=== PATIENT | female | born 1935 | race Caucasian/White ===

== ENCOUNTER 2016-12-24 07:29 | Inpatient (IN) | payer MEDICARE, MEDICAID ==
[~2016-12-24] VITALS: Ht 167.6 cm; Wt 79.6 kg
[2016-12-24] VITALS (18 sets, daily range): BP systolic 118–170; BP diastolic 9–76
[~2016-12-24 07:29] MED LIST: ACETAMINOPHEN325 M2 PO; ACTOS 15MG TABL15 MG PO; AMLODIPINE5 M1 PO; AMOXIL500 MG PO; ASCORBIC ACID500 M2 PO; ASPIR 8181 MG PO; AUGMENTIN 875-1 EACH PO; AZITHROMYCIN250 MG PO; CARDIZEM CD 12120 MG PO; CEFDINIR 300MG300 MG PO; CLOPIDOGREL75 M1 PO; DITROPAN XL10 M1 PO; FERROUS SULFAT200 M1 PO; FERROUS SULFAT325 M2 PO; FLUTICASONE 50M16 GM; FSBS FS; GENTAMICIN O5 ML/BOT OP; GENTAMICIN OP; GLIPIZIDE10 MG PO; HUMALOG100 U/ML SC; HYDROCORTI30 GM/TUB3; HYDROCORTI30 GM/TUB3 TP; HYDROXYZINE 25M25 MG PO; HYPOTEARS 15 ML15 M1 OP; IMODIUM 2MG. CAP2 MG PO; LASIX20 MG PO; LEVAQUIN 750 M750 MG PO; LIPITOR40 MG PO; LISINOPRIL2.5 M1 PO; LISINOPRIL20 MG PO; LORATADINE 10MG10 M1 PO; MACRODANTIN100 MG PO; MAXZIDE 25 MG-31 TAB PO; MAXZIDE 50 MG-71 TAB PO; METFORMIN500 MG PO; MULTIVITAMIN1 SGL PO; MYLANTA PO; NITROGLYCERIN0.4 MG SL; NORVASC 5MG. TAB5 MG PO; OMEPRAZOLE20 MG PO; OXYBUTYNIN CHLOR5 MG PO; OXYBUTYNIN5 MG PO; PANTOPRAZOLE SO40 MG PO; PLAVIX 75MG TAB75 MG PO; PLAVIX75 MG PO; PRENATAL PLUS1 TA1 PO; PRENATAL1 TA1 PO; PROMETHAZINE HC25 M1 PO; PROMETHAZINE25 M1 PO; ROBITUSSIN COU118 ML PO; ROBITUSSIN DM S10 ML PO; TRICOR48 MG PO; TRIPLE ANTIBIOT TP; TYLENOL325 MG PO; VISTARIL25 M1 PO; VISTARIL25 MG PO; VITAMIN C500 M1 PO; VITAMIN D50000 IU PO; ZESTRIL 2.5MG2.5 MG PO; ZOCOR20 MG PO; ZOLOFT 50MG TAB50 MG PO; [UNRECOGNIZED DRUG - OTHER] PO
[2016-12-24] MEDS ORDERED: NOVOLOG MI100 UNITS/ SC (07:42)
--- OUTSIDE RECORDS SUMMARY | 2016-12-24 07:49 | External Medical Summary Rpt ---
Author Author , LINDSAY MONTOYA Address Unknown Phone [email or web address] Care Team Providers Care Coil Spring Assembler Name Role Phone PHILLIPS LUZ, PHILLIPS Unavailable Unavailable LUZ VIKY FRA, VIKY Unavailable Unavailable FRA BEINEKE, BEINEKE Unavailable Unavailable CHE, CHE Unavailable Unavailable CHE KRYSTAL, Unavailable Unavailable CHE KRYSTAL CHE KRYSTAL, Unavailable Unavailable CHE KRYSTAL REYNOLDS ALL, REYNOLDS ALL Unavailable Unavailable BRAUDIS, BRAUDIS Unavailable Unavailable BRAUDIS, BRAUDIS Unavailable Unavailable BRAUDIS JAM, BRAUDIS Unavailable Unavailable JAM BRAUDIS JAM, BRAUDIS Unavailable Unavailable JAM [facility] Unavailable Unavailable SERVICE, [facility] Unavailable Unavailable SERVICE, [facility]available Unavailable [facility], [facility] Unavailable Unavailable [facility], [facility] GIOVANNA, GIOVANNA Unavailable Unavailable GIOVANNA MARTIN, Unavailable Unavailable GIOVANNA MARTIN GIOVANNA MARTIN, Unavailable Unavailable GIOVANNA MARTIN [facility] Unavailable [facility]available [facility], Unavailable [facility]available [facility] PHI, Unavailable Unavailable NEVIN PHI [facility] Un[facility] Un[facility], [facility] Unavailable Unavailable [facility]ST[facility], [facility] Unavailable Unavailable [facility], [facility] Unavailable Unavailable SERVBLUEGRAS, [facility]ATED Unavailable Unavailable TRANSPORTATION SER, [facility] YANET, YANET Unavailable Unavailable YANET KIM, YANET Unavailable Unavailable KIM GIVEN CUR, GIVEN CUR Unavailable Unavailable GIVEN CUR, GIVEN CUR Unavailable Unavailable [facility] Unavailable Unavailable INC, [facility] Unavailable Un[facility]PITAL P, [facility], Unavailable Unavailable [facility] OTIS BERG Unavailable Unavailable ALEC VIRK, ALEC VIRK Unavailable Unavailable ILDA, ILDA Unavailable Unavailable [facility] Unavailable Unavailable [facility], [facility] Un[facility], [facility], [facility] Unavailable Unavailable 11, [facility] 11 [facility] Unavailable Unavailable ACTION, [facility] MCKEMIE JR YO, Unavailable Unavailable [facility]EM[facility] Y[facility] Unavailable Unavailable [facility], [facility]available Unavailable [facility], Unavailable Unavailable PLL[facility], [facility] LAURA, MALACHI A, Unavailable Unavailable LAURA, MALACHI A WANDER TOD, WANDER TOD Unavailable Unavailable SCIFRES ANG, SCIFRES Unavailable Unavailable ANG SCIFRES ANG, SCIFRES Unavailable Unavailable ANG SHAENIDY ANN, SHASHY Unavailable Unavailable ANN MOISE, JOSE MARIA Unavailable Unavailable CANDELARIA, IVY N, Unavailable Unavailable CANDELARIA, IVY N [facility] Unavailable Unavailable [facility], [facility] Unavailable Unavailable [facility], [facility] SOTINGEANU, Unavailable Unavailable SOTINGEANU ANDRE, Unavailable Unavailable ANDRE Clinton Patterson MD, Unavailable Unavailable Clinton Patterson MD [facility] Unavailable Unavailable HOSPITALS, [facility], Unavailable Unavailable [facility] MCCORD BHAKTI, MCCORD BHAKTI Unavailable Unavailable WEHRMAN III YO, Unavailable Unavailable WEHRMAN III YO Purpose Continuity of Care Document - 12-26-2008 through 2016 Problems Code Diagnosis DOS Provider Status E11.65 Type 2 10-31-2016 diabetes mellitus with hyperglycem ia E78.5 Hyperlipide 10-31-2016 tracy, unspecified I12.9 Hypertensiv 10-31-2016 e chronic kidney disease with stage 1 through stage 4 chronic kidney disease, or unspecified chronic kidney disease N18.9 Chronic 10-31-2016 kidney disease, unspecified R73.9 Hyperglycem 10-31-2016 ia, unspecified Z86.73 Personal 10-31-2016 history of transient ischemic attack (TIA), and cerebral infarction without residual deficits E1165 TYPE 2 10-24-2016 [facility] [place]YCEM [place] E785 HYPERLIPIDE 10-24-2016 [facility] UNSPECIFIED HOSPITALS I10 ESSENTIAL 10-24-2016 [facility] HYPERT[facility]IN[facility] PSC N I129 HYPERTENSIV 10-24-2016 [facility] E CKD HEALTHCARE W/STAGE 1-4 HOSPITALS CKD OR UNS CKD N189 CHRONIC 10-24-2016 [facility] DISEASE HOSPITALS UNSPECIFIED Z8673 PERSONAL HX 10-24-2016 [facility] & [facility] CEREB HOSPITALS INFARCT NO RESID DEFICIT E118 TYPE 2 09-24-2016 [facility]ES [facility], MELLITUS PLLC W/UNS COMPLICATIO NS 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-24-2016 [facility] 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[facility], 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 N289 DISORDER OF 09-24-2016 [facility] KIDNEY AND [facility], URETER PLLC UNSPECIFIED R4182 ALTERED 09-24-2016 [facility] MENTAL [facility], STATUS PLLC UNSPECIFIED R5383 OTHER 09-24-2016 [facility] I4891 UNSPECIFIED 09-22-2016 [facility] ATRIAL HEART FIBRILLATIO N R748 ABNORMAL 09-22-2016 [facility] LEVELS OF HEART OTHER SERUM ENZYMES I214 NON-ST 09-21-2016 [facility] ELEVATION PHYSICIANS MYOCARDIAL GROUP INFARCTION [id number] ASHD [place] 09-21-2016 [facility] COR ART PHYSICIANS W/UNSTABLE GROUP ANGINA PECTORIS I495 SICK SINUS 09-21-2016 [facility] SYNDROME PHYSICIANS GROUP N183 CHRONIC 09-21-2016 [facility] KIDNEY PHYSICIANS DISEASE GROUP STAGE 3 MODERATE [id number] HEMIPLEGIA 09-20-2016 [facility] FLW PHYSICIANS CEREBRAL GROUP INFARCT AFFCT UNS SIDE 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 [id number] ENCOUNTER 09-20-2016 [facility] FOR OTHER PHYSICIANS PREPROCEDUR GROUP AL EXAMINATION E1122 TYPE 2 09-19-2016 [facility] MELLITUS INC W/DIAB CHRON KIDNEY DZ 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 E44510 HEMIPLEGIA 09-19-2016 [facility] FLW [facility] CEREBRAL INC INFARCT AFF RT DOM SIDE N390 URINARY 09-19-2016 [facility] TRACT [facility] INFECTION INC SITE NOT SPECIFIED R0602 SHORTNESS 09-19-2016 [facility] OF BREATH PHYSICIANS, PLLC R079 CHEST PAIN 09-19-2016 [facility] UNSPECIFIED [facility]BULANCE SERVICE R7989 OTHER SPEC 09-19-2016 [facility] BLOOD CHEMISTRY E119 TYPE 2 09-15-2016 [facility] MELLITUS MEDICAL WITHOUT EQUIPME COMPLICATIO NS B351 TINEA 09-07-2016 MARJORIEUDIS UNGUIUM E1151 TYPE 2 DM 09-07-2016 BRAUDIS W/DIAB 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 [id number] PAIN IN 09-07-2016 [facility] RIGHT TOES H67021 PAIN IN 09-07-2016 B[facility]IS LEFT TOES R600 LOCALIZED 09-07-2016 JOHNNYS EDEMA H1789 OTHER 07-11-2016 [facility] OPACITIES R69 ILLNESS 07-11-2016 FEDERATED UNSPECIFIED TRANSPORTAT ION SER [id number] FOREIGN 05-27-2016 [facility] IN EYE [place] UNS INSTITUTE EYE INITIAL ENCOUNTER Z961 PRESENCE OF 05-27-2016 [facility] LENS [id number] PAIN IN 01-22-2016 EXPRESS LEFT THIGH MOBILE DIAGNOSTIC SE R7611 NONSPECIFIC 12-30-2015 EXPRESS RXN MOBILE TUBERCULIN DIAGNOSTIC SKIN TEST SE W/O ACT TB N250 RENAL 10-05-2015 [facility] OSTEODYSTRO SERV PHY FOUNDATION Z794 SENIOR LIVING 10-05-2015 [facility] CURRENT USE SERV OF INSULIN FOUNDATION H2513 AGE-RELATED 07-03-2015 SCIFRES ANG NUCLEAR CATARACT BILATERAL L07715 PUPILLARY 04-28-2015 [facility]AL[facility] LEFT EYE INC 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 04-28-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 FORMS OF 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 LEFT EYE H269 UNSPECIFIED 04-28-2015 [facility] CATARACT [facility] INC H5703 MIOSIS 04-28-2015 CHE KRYSTAL N3941 URGE 04-21-2015 [facility] P 2859 UNSPECIFIED 02-25-2015 [facility] ANEMIA [facility] INC 48573 02-25-2015 [facility] TRANSPORTAT ION SER 2410 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 [facility] GOITER [facility] 04240 DIAB W/O 02-17-2015 [facility] COMP TYPE [facility] II/UNS NOT INC STATED UNCNTRL 2558 OTHER 02-17-2015 [place] SPECIFIED MEDICAL DISORDERS IMAGING ASS OF ADRENAL GLANDS 19574 UNSPEC 02-17-2015 [facility] VENTRAL [facility] NIMO W/O IMAGING ASS MENTION OBST/GANGRE N 5932 ACQUIRED 02-17-2015 [place] CYST OF MEDICAL KIDNEY IMAGING ASS 98132 NONSPEC 12-25-2014 EXPRESS REACT MOBILE TUBERCULIN DIAGNOSTIC [place] W/[place] [address] OTHER ACUTE 09-19-2014 [facility] PAIN PHYSICIANS GROUP 7062 SEBACEOUS 09-19-2014 [facility] CYST PHYSICIANS GROUP 7820 DISTURBANCE 09-19-2014 [facility] OF SKIN PHYSICIANS SENSATION GROUP V154 PERS HX 09-17-2014 [facility]IC [facility] AL TRAUMA PRS [facility]ZAR[facility] 4739 UNSPECIFIED 07-04-2014 [facility] 7813 LACK OF 07-04-2014 [place] [facility] N IMAGING ASS 16715 DIAB W/O 07-03-2014 [facility]ENTION [facility] COMP TYPE HOSPITAL P II/UNS TYPE UNCNTRL 4019 UNSPECIFIED 07-03-2014 [facility] P N 87980 MUSCLE 07-03-2014 [place] [facility]AK[facility] P D) 04155 OTHER 07-03-2014 [place] MALAI AND [facility] P 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 04530 DIAB 06-28-2013 BRAFRANNY MEADE W/PERIPH CIRC D/O TYPE II/UNS NOT UNCNTRL 7011 ACQUIRED 06-28-2013 ALEXIA MEADE KERATODERMA 7295 PAIN IN 06-28-2013 ALEXIA MEADE SOFT TISSUES OF LIMB 7823 EDEMA 06-28-2013 ALEXIA MEADE 5853 CHRONIC 04-15-2013 [place] [facility] DISEASE INC STAGE III (MODERATE) 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 7533 OTHER 04-15-2013 GIOVANNA SPECIFIED MARTIN CONGENITAL ANOMALIES OF KIDNEY 23160 DEHYDRATION 01-03-2013 SIGRID MONTENEGRO YO 2767 HYPERPOTASS 01-03-2013 SIGRID MONTENEGRO EMIA OY 3319 UNSPECIFIED 01-02-2013 GIOVANNA CEREBRAL MARTIN DEGENERATIO N 514 PULMONARY 12-04-2012 EXPRESS CONGESTION [place] [address] SHORTNESS 12-04-2012 [place] [address] UNSPECIFIED 04-30-2012 GIVEN CUR CEREBRAL ARTERY OCCLUSION W/INFARCT 06565 OCCL&STENOS 04-05-2012 GIOVANNA MX&BILAT MARTIN PRECERBRL ART W/O INFARCT 45501 UNSPEC 04-04-2012 [place] CERBRL ART MEDICAL OCCLUSION IMAGING ASS W/O MENTION INFARCT 4370 CEREBRAL 04-04-2012 [place] ATHEROSCLER [facility]ICAL OSIS [facility] 4371 OTH 04-04-2012 [place] GENERALIZED [facility]ICAL ISCHEMIC IMAGING ASS CEREBROVASC ULAR DISEASE V5869 LONG-TERM 01-18-2012 COMBINED (CURRENT) PHYSICIANS USE OF [place] OTHER MEDICATIONS 14295 OSTEOARTHRO 12-16-2011 [facility] SIS UNSPEC SERV WHETHER FOUNDATIO GEN/LOC LOWER LEG 87178 PAIN IN 12-16-2011 [facility] JOINT, SERV LOWER LEG FOUNDATIO 65645 EXOSTOSIS 12-16-2011 [facility] OF SERV UNSPECIFIED FOUNDATIO SITE 79869 MEMORY LOSS 08-21-2009 [facility] V1254 PERSONAL HX 08-21-2009 [facility] W/O RESIDUAL DEFICITS 4409 GENERALIZED 07-17-2009 [facility] UNSPECIFIED ATHEROSCLER OSIS 7213 LUMBOSACRAL 07-17-2009 [facility] 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 7242 LUMBAGO 07-17-2009 [facility] 94090 ALTERED 07-17-2009 [facility] STATUS [facility] 2724 OTHER AND 12-26-2008 [facility] UNSPECIFIED SERV [facility]OUNDATIO HYPERLIPIDE TRACY 276.7 Hyperkalemi [facility] 586 Uremia [facility] 780.93 Memory [facility] E11.9 TYPE 2 DIABETES MELLITUS WITHOUT COMPLICATIO NS I25.10 ATHSCL HEART DISEASE OF [place] CORONARY ARTERY W/O ANG PCTRS I48.91 UNSPECIFIED ATRIAL FIBRILLATIO N N28.9 DISORDER OF KIDNEY AND URETER, UNSPECIFIED R06.00 DYSPNEA, UNSPECIFIED R07.9 CHEST PAIN, UNSPECIFIED R41.82 ALTERED MENTAL STATUS, UNSPECIFIED R53.1 WEAKNESS Allergies, Adverse Reactions, Alerts Type Drug Allergy Food Allergy Adverse Reaction to Substance Substance Reaction Severity Bananas UNKNOWN Unknown BANANAS (FOOD) Unknown Unknown Clinical Alert Notifications Alert Diabetes: no influenza vaccine in the last 365 days Diabetes: no lipid panel in the last 365 days Diabetes: no urine protein screening in the last 365 days Member has >/= 3 hosp admit & >/= 1 ED visit in 365 days Medications Na ND Rx Da Fi Fi Am Da Di Ph RX Ph St me C No te ll ll ou ys ag ar # ys at rm s nt no ma ic us Or Da si cy ia de te s n re d FE 00 06 07 30 30 00 ME Ac RR 53 -0 -0 .0 00 D ti OU 61 2- 7- 00 14 CA ve S 00 20 20 30 RE ANAYA 90 17 17 75 LF 1 43 PH AT AR E MA 32 CY 5 MG TA BL ET 00 06 07 30 30 00 ME Ac PI 90 -0 -0 .0 00 D ti RI 46 2- 7- 00 14 CA ve N 28 20 20 30 RE 81 88 17 17 75 9 42 PH MG AR MA CH CY EW AB LE TA BL ET TA 00 05 06 30 30 00 ME Ac B- 90 -1 -2 .0 00 D ti A- 40 9- 3- 00 14 CA ve 53 20 20 21 RE TE 08 17 17 75 0 36 PH TA AR BL MA ET CY 00 05 06 30 30 00 ME Ac TA 90 -2 -2 .0 00 D ti AZ 40 4- 3- 00 14 CA ve N 52 20 20 23 RE C 38 17 17 89 50 0 19 PH 0 AR MG MA CY TA BL ET 00 05 06 30 30 00 ME Ac PI 90 -0 -0 .0 00 D ti RI 46 4- 9- 00 14 CA ve N 28 20 20 13 RE 81 88 17 17 95 9 18 PH MG AR MA CH CY EW AB LE TA BL ET FE 00 05 06 30 30 00 ME Ac RR 53 -0 -0 .0 00 D ti OU 61 4- 9- 00 14 CA ve S 00 20 20 13 RE ANAYA 90 17 17 95 LF 1 19 PH AT AR E MA 32 CY 5 MG TA BL ET 00 04 06 30 30 00 ME Ac TA 90 -2 -0 .0 00 D ti AZ 40 7- 2- 00 14 CA ve N 52 20 20 01 RE C 38 17 17 44 50 0 92 PH 0 AR MG MA CY TA BL ET TA 00 04 05 30 30 00 ME Ac B- 90 -2 -2 .0 00 D ti A- 40 1- 6- 00 14 CA ve 53 20 20 08 RE TE 08 17 17 61 0 05 PH TA AR BL MA ET CY 00 04 05 30 30 00 ME Ac PI 90 -0 -1 .0 00 D ti RI 46 7- 2- 00 14 CA ve N 28 20 20 01 RE 81 88 17 17 44 9 83 PH MG AR MA CH CY EW AB LE TA BL ET FE 00 04 05 30 30 00 ME Ac RR 53 -0 -1 .0 00 D ti OU 61 7- 2- 00 14 CA ve S 00 20 20 01 RE ANAYA 90 17 17 44 LF 1 94 PH AT AR E MA 32 CY 5 MG TA BL ET 00 03 05 30 30 00 ME Ac TA 90 -3 -0 .0 00 D ti AZ 40 1- 5- 00 13 CA ve N 52 20 20 97 RE C 38 17 17 53 50 0 72 PH 0 AR MG MA CY TA BL ET FE 00 03 04 30 30 00 ME Ac RR 53 -0 -1 .0 00 D ti OU 61 9- 4- 00 13 CA ve S 00 20 20 86 RE ANAYA 90 17 17 40 LF 1 35 PH AT AR E MA 32 CY 5 MG TA BL ET TA 00 03 04 30 30 00 ME Ac B- 90 -1 -1 .0 00 D ti A- 40 0- 4- 00 13 CA ve 53 20 20 87 RE TE 08 17 17 06 0 41 PH TA AR BL MA ET CY LO 00 03 04 30 30 00 ME Ac RA 78 -0 -0 .0 00 D ti TA 15 2- 7- 00 13 CA ve DI 07 20 20 82 RE NE 70 17 17 90 1 01 PH 10 AR MA MG CY TA BL ET 00 03 04 30 30 00 ME Ac TA 90 -0 -0 .0 00 D ti AZ 40 3- 7- 00 13 CA ve N 52 20 20 83 RE C 38 17 17 76 50 0 10 PH 0 AR MG MA CY TA BL ET 64 03 04 8. 28 00 ME Ac T 38 -0 -0 00 00 D ti D2 00 6- 7- 0 13 CA ve 73 20 20 84 RE 1. 70 17 17 30 25 6 84 PH AR MG MA CY (5 0, 00 0 UN IT ) TA 00 02 03 30 30 00 ME Ac B- 90 -1 -1 .0 00 D ti A- 40 0- 7- 00 13 CA ve 53 20 20 72 RE TE 08 17 17 82 0 31 PH TA AR BL MA ET CY FE 00 02 03 30 30 00 ME Ac RR 90 -1 -1 .0 00 D ti OU 47 0- 7- 00 13 CA ve S 59 20 20 73 RE ANAYA 18 17 17 21 LF 0 61 PH AT AR E MA 32 CY 5 MG TA BL ET 00 02 03 30 30 00 ME Ac TA 90 -0 -1 .0 00 D ti AZ 40 3- 0- 00 13 CA ve N 52 20 20 69 RE C 38 17 17 59 50 0 17 PH 0 AR MG MA CY TA BL ET LO 00 02 03 30 30 00 ME Ac RA 78 -0 -0 .0 00 D ti TA 15 1- 3- 00 13 CA ve DI 07 20 20 68 RE NE 70 17 17 72 1 74 PH 10 AR MA MG CY TA BL ET MA 00 01 02 30 3 00 ME Ac PA 90 -2 -2 .0 00 D ti P 41 4- 4- 00 13 CA ve 32 98 20 20 64 RE 5 26 17 17 62 MG 1 53 PH AR TA MA BL CY ET LL C 64 01 02 8. 28 00 ME Ac T 38 -2 -2 00 00 D ti D2 00 5- 4- 0 13 CA ve 73 20 20 64 RE 1. 70 17 17 45 25 6 18 PH AR MG MA CY (5 0, LL 00 C 0 UN IT ) TA 00 01 02 30 30 00 ME Ac B- 90 -1 -1 .0 00 D ti A- 40 3- 7- 00 13 CA ve 53 20 20 59 RE TE 08 17 17 10 0 99 PH TA AR BL MA ET CY LL C FE 00 01 02 30 30 00 ME Ac RR 53 -1 -1 .0 00 D ti OU 61 4- 7- 00 13 CA ve S 00 20 20 59 RE ANAYA 90 17 17 51 LF 1 12 PH AT AR E MA 32 CY 5 MG LL C TA BL ET 00 01 02 30 30 00 ME Ac TA 90 -0 -1 .0 00 D ti AZ 40 5- 0- 00 13 CA ve N 52 20 20 55 RE C 38 17 17 28 50 0 92 PH 0 AR MG MA CY TA BL LL ET C LO 00 01 02 30 30 00 ME Ac RA 78 -0 -0 .0 00 D ti TA 15 2- 3- 00 13 CA ve DI 07 20 20 52 RE NE 70 17 17 98 1 78 PH 10 AR MA MG CY TA LL BL C ET 64 12 01 8. 28 00 ME Ac T 38 -2 -2 00 00 D ti D2 00 8- 7- 0 13 CA ve 73 20 20 50 RE 1. 70 16 17 59 25 6 97 PH AR MG MA CY (5 0, LL 00 C 0 UN IT ) FE 00 12 01 30 30 00 ME Ac RR 53 -1 -2 .0 00 D ti OU 61 6- 0- 00 13 CA ve S 00 20 20 45 RE ANAYA 90 16 17 37 LF 1 59 PH AT AR E MA 32 CY 5 MG LL C TA BL ET TA 00 12 30 30 00 ME Ac B- 90 -1 -1 .0 00 D ti A- 40 4- 3- 00 13 CA ve 53 20 20 44 RE TE 08 16 17 23 0 95 PH TA AR BL MA ET CY LL C LO 00 12 07 18 30 00 ME Ac RA 78 -0 -0 .0 00 D ti TA 15 3 9 13 CA ve DI 07 20 20 39 RE NE 70 16 17 16 1 27 PH 10 AR MA MG CY TA LL BL C ET 00 12 30 30 00 ME Ac TA 90 -0 -0 .0 00 D ti AZ 40 9- 00 13 CA ve N 52 20 20 40 RE C 38 16 17 98 50 0 09 PH 0 AR MG MA CY TA BL LL ET C AM 51 07 1 No LO 07 -1 DI 90 8- Lo PI 45 20 ng NE 12 13 er 0 BE Ac SY ti LA ve TE 5 MG TA B CL 51 07 1 No OP 07 -1 ID 90 8- Lo OG 55 20 ng RE 72 13 er L 0 75 Ac ti MG ve TA BL ET SE 59 07 1 No RT 76 -1 RA 24 8- Lo LI 90 20 ng NE 00 13 er 3 HC Ac L ti 50 ve MG TA BL ET SO 00 07 0 No DI 40 -1 UM 97 7- Lo 98 20 ng CH 30 13 er LO 9 RI Ac DE ti ve 0. 9% SO LLUVIA TI ON SP 46 07 0 No S 28 -1 15 70 7- Lo 00 20 ng GM 66 13 er /6 0 0 Ac ML ti ve ANAYA SP EN SI ON DE 00 07 0 No XT 40 -1 RO 97 7- Lo SE 51 20 ng 71 13 er 50 6 %- Ac WA ti TE ve R SY RI NG E NO 00 07 0 No VO 16 -1 LI 91 7- Lo N 83 20 ng R 31 13 er 10 1 0 Ac UN ti IT ve S/ ML AL FS 07 2 No -1 BL 7- Lo OO 20 ng D 13 er ANAYA GA Ac R ti ve HU 00 07 2 No MA 00 -1 LO 27 7- Lo G 51 20 ng 10 01 13 er 0 7 UN Ac IT ti S/ ve ML AL Vital Signs 01-04-2013 16:15 Name Value Interpretat Reference Comment ion Range Body 99.7 [degF] Temperature BP 77 mm[Hg] Diastolic BP Systolic 126 mm[Hg] Heart 73 /min Rate/Pulse O2% 97 % Respiratory 16 /min Rate 01-02-2013 16:02 Name Value Interpretat Reference Comment ion Range Height 165.10 cm Weight 71.442 kg Measured 01-02-2013 12:10 Name Value Interpretat Reference Comment ion Range Body 98 [degF] Temperature BP 64 mm[Hg] Diastolic BP Systolic 147 mm[Hg] Heart 79 /min Rate/Pulse O2% 99 % Respiratory 20 /min Rate Weight 0 [oz_av] Measured Results Labs Lab Lab Date Result Refere Interp Status Commen Order Detail nces retati t Range on Ketones SerPl-mCnc (10-24-2016 16:17) Ketones NEG NEGATIV complet 017 NEGATIV E ed SerPl-m 16:17 E L Cnc Lactate d-sCnc (10-24-2016 16:17) Lactate 1.3 complet 017 mmol/L ed d-sCn 16:17 c Glucose [facility] Glucomtr-[facility] (01-04-2013 11:50) Glucose 120 70-110 complet BldC 013 mg/dl ed Glucomt 11:50 r-[facility] BASIC METABOLIC PANEL (01-04-2013 07:30) Glucose 100 74-106 complet 013 mg/dL ed Bld-mCn 07:30 c BUN 16 7-18 complet Bld-mCn 013 mg/dL ed c 07:30 Creat 1.4 0.6-1.0 complet SerPl-m 013 mg/dL ed Cnc 07:30 ESTIMAT 38 50-200 complet ED 013 ML/MIN ed CREATIN 07:30 INE CLEARAN CE GFR 36 59- complet (ESTIMA 013 ML/MIN ed KEN) 07:30 Sodium 139 136-145 complet SerPl-s 013 mmoL/L ed Cnc 07:30 Potassi 4.3 3.5-5.1 complet um 013 mmoL/L ed SerPl-s 07:30 Cnc Chlorid 108 98-107 complet e 013 mmoL/L ed SerPl-s 07:30 Cnc CO2 23 21.0-32 complet SerPl-s 013 mmoL/L .0 ed Cnc 07:30 Calcium 7.9 8.5-10. complet 013 mg/dL 1 ed SerPl-m 07:30 Cnc Glucose BldC Glucomtr-mCnc (01-04-2013 06:11) Glucose 105 70-110 complet BldC 013 mg/dl ed Glucomt 06:11 r-nc Glucose BldC Glucomtr-nc (01-03-2013 20:12) Glucose 2 147 70-110 complet BldC 013 mg/dl ed Glucomt 20:12 r-[facility] Glucose BldC Glucomtr-nc (01-03-2013 17:03) Glucose 01-03-2 199 70-110 complet BldC 013 mg/dl ed Glucomt 17:03 r-[facility] Glucose BldC Glucomtr-[facility] (01-03-2013 11:29) Glucose 01-03-2 133 70-110 complet BldC 013 mg/dl ed Glucomt 11:29 r-[facility] BASIC METABOLIC PANEL (01-03-2013 06:30) Glucose 106 74-106 complet 013 mg/dL ed Bld-mCn 06:30 c BUN 25 7-18 complet Bld-mCn 013 mg/dL ed c 06:30 Creat 1.5 0.6-1.0 complet SerPl-m 013 mg/dL ed Cnc 06:30 ESTIMAT 35 50-200 complet ED 013 ML/MIN ed CREATIN 06:30 INE CLEARAN CE GFR 34 59- complet (ESTIMA 013 ML/MIN ed KEN) 06:30 Sodium 01-03- 138 136-145 complet SerPl-s 013 mmoL/L ed Cnc 06:30 Potassi 5.1 3.5-5.1 complet um 013 mmoL/L ed SerPl-s 06:30 Cnc Chlorid 108 98-107 complet e 013 mmoL/L ed SerPl-s 06:30 Cnc CO2 23 21.0-32 complet SerPl-s 013 mmoL/L .0 ed Cnc 06:30 Calcium 07-18-2 8.0 8.5-10. complet 013 mg/dL 1 ed SerPl-m 06:30 Cnc Glucose BldC Glucomtr-[facility] (01-03-2013 06:30) Glucose 07-18-2 111 70-110 complet BldC 013 mg/dl ed Glucomt 06:30 r-mCnc Glucose BldC Glucomtr-[facility] (01-02-2013 21:10) Glucose 07-17-2 238 70-110 complet BldC 013 mg/dl ed Glucomt 21:10 r-mCnc Ammonia Plas-[facility] (01-02-2013 18:08) Ammonia 07-17-2 3 11-32 complet 013 umoL/L ed Plas-sC 18:08 nc Glucose BldC Glucomtr-[facility] (01-02-2013 16:53) Glucose 07-17-2 111 70-110 complet BldC 013 mg/dl ed Glucomt 16:53 r-nc URINALYSIS/COMPLETE (01-02-2013 12:50) URINE 07-17-2 YELLOW YELLOW complet COLOR 013 ed 12:50 URINE 07-17-2 CLEAR CLEAR complet APPEARA 013 ed NCE 12:50 URINE 07-17-2 NEGATIV NEG complet GLUCOSE 013 E ed - 12:50 DIPSTIC K URINE 07-17-2 NEGATIV NEG complet BILIRUB 013 E ed IN - 12:50 DIPSTIC K URINE 07-17-2 NEGATIV NEG complet KETONE 013 E mg/dL ed 12:50 URINE 07-17-2 Less 1.005-1 complet SPECIFI 013 than or .030 ed C 12:50 equal GRAVITY to 1.005 URINE 07-17-2 NEGATIV NEG complet BLOOD 013 E ed 12:50 URINE 07-17-2 6.5 UNK 5.0-8.5 complet PH 013 ed 12:50 URINE 07-17-2 NEGATIV NEG complet PROTEIN 013 E mg/dL ed - 12:50 DIPSTIC K URINE 07-17-2 0.2 NEG complet UROBILI 013 E.U./dL ed NOGEN - 12:50 DIPSTIC K URINE 07-17-2 NEGATIV NEG complet NITRATE 013 E ed - 12:50 DIPSTIC K URINE 07-17-2 NEGATIV NEG complet LEUK 013 E ed ESTERAS 12:50 E URINE TRACE O complet BACTERI 013 ed A 12:50 COMPREHENSIVE METABOLIC PANEL (01-02-2013 12:00) Glucose 71 74-106 complet 013 mg/dL ed Bld-mCn 12:00 c BUN 31 7-18 complet Bld-mCn 013 mg/dL ed c 12:00 Creat 1.8 0.6-1.0 complet SerPl-m 013 mg/dL ed Cnc 12:00 ESTIMAT 28 50-200 complet ED 013 ML/MIN ed CREATIN 12:00 INE CLEARAN CE GFR 27 59- complet (ESTIMA 013 ML/MIN ed KEN) 12:00 Sodium 128 136-145 complet SerPl-s 013 mmoL/L ed Cnc 12:00 Potassi 6.0 3.5-5.1 complet um 013 mmoL/L ed SerPl-s 12:00 Cnc Chlorid 97 98-107 complet e 013 mmoL/L ed SerPl-s 12:00 Cnc CO2 23 21.0-32 complet SerPl-s 013 mmoL/L .0 ed Cnc 12:00 Calcium 9.0 8.5-10. complet 013 mg/dL 1 ed SerPl-m 12:00 Cnc Prot 7.8 6.4-8.2 complet SerPl-m 013 gm/dL ed Cnc 12:00 Albumin 3.5 3.4-5.0 complet 013 gm/dL ed SerPl-m 12:00 Cnc Globuli 4.3 1.3-3.2 complet n 013 gm/dL ed Ser-mCn 12:00 c Albumin 0.8 UNK 1.1-1.8 complet /Glob 013 ed SerPl-m 12:00 Rto Bilirub 0.3 0.2-1.0 complet 013 mg/dL ed SerPl-m 12:00 Cnc AST 21 U/L 15-37 complet SerPl-c 013 ed Cnc 12:00 ALT 07-17-2 40 U/L 30-65 complet SerPl-c 013 ed Cnc 12:00 ALP 01-02-2 71 U/L 50-136 complet SerPl-c 013 ed Cnc 12:00 CBC with AUTO DIFF (01-02-2013 12:00) WBC # 07-17-2 7.3 4.8-10. complet Bld 013 K/MM3 8 ed Auto 12:00 RBC # 17-2 3.92 4.2-5.4 complet Bld 013 M/mm3 ed Auto 12:00 Hgb 17-2 11.6 12.2-16 complet Bld-mCn 013 g/dL .2 ed c 12:00 Hct Fr 01-02- 35.2 % 37.0-47 complet Bld 013 .0 ed 12:00 MCV RBC 01-02-2 89.7 fl 82.2-97 complet 013 .8 ed 12:00 MCH RBC 01-02- 29.5 pg 27-31.2 complet Qn 013 ed Auto 12:00 MEAN 01-02-2 32.8 31.8-35 complet CORPUSC 013 g/dl .4 ed ULAR 12:00 HGB CONC RDW RBC 01-02-2 14.1 % 11.5-17 complet Auto 013 .5 ed 12:00 Platele 01-02-2 274 142-424 complet t Bld 013 K/mm3 ed Ql 12:00 Manual MEAN 01-02-2 7.0 fl 7.4-10. complet PLATELE 013 4 ed T 12:00 VOLUME Granulo 01-02-2 51.2 % 37.0-80 complet cytes 013 .0 ed Fr Bld 12:00 Auto LYMPH % 01-02-2 40.9 % 10-50.0 complet 013 ed 12:00 Monocyt 01-02-2 4.3 % 1.7-9.3 complet es Fr 013 ed Bld 12:00 Auto Eosinop 01-02-2 2.7 % 0.1-12. complet hil Fr 013 0 ed Bld 12:00 Auto Basophi -17-2 0.9 % 0.1-2.0 complet ls Fr 013 ed Bld 12:00 Auto Granulo 17-2 3.7 1.8-7.8 complet cytes # 013 K/mm3 ed Bld 12:00 Auto Lymphoc 01-02-2 3.0 0.7-4.5 complet ytes Fr 013 K/mm3 ed Bld 12:00 Auto Monocyt 01-02-2 0.3 0.1-1.0 complet es # 013 K/mm3 ed Bld 12:00 Auto Eosinop 01-02-2 0.2 0.0-0.4 complet hil # 013 K/mm3 ed Bld 12:00 Auto Basophi 01-02-2 0.1 0-0.2 complet ls # 013 K/MM3 ed Bld 12:00 Auto Procedures Procedure DOS Code Location Performer Comment RADIOLOGI 19079 [place] C EXAM 7 [facility] CHEST 2 E E VIEWS [facility] FRONTAL&L ATERAL KETONE 03987 [place] BODIES 7 [facility] HEALTHCAR SERUM E E QUANTITAT [facility] ALIREZA GLUC BLD 48594 SupportBee GLUC MNTR 7 [place] [facility] CLEARED PSC FDA SPEC HOME USE HEMOGLOBI 99218 CHUY OTIS N 7 [facility] KEN A1C PSC BLOOD 61424 [facility] COUNT 7 [facility] COMPLETE E E AUTOMATED [facility] COMPREHEN 65956 [place] [facility] SIVE 7 [facility] HEALTHCAR METABOLIC E E PANEL [facility] GASES 08870 [facility] BLOOD PH 7 [facility]ALTHCAR HEALTHCAR DIRECT E E LISETTE XCPT [facility] [place] [address] [facility] LACTATE 7 [facility] HEALTHCAR [place] [address] YARELI HEREDIA HEAD/BRAI 7 MEDICAL N W/O IMAGING CONTRAST ASS MATERIAL RADIOLOGI 55565 YARELI BEINEKE C 7 MEDICAL EXAMINATI IMAGING ON CHEST ASS [place] FRONTAL AMB A0427 [facility] SERVICE 7 AMBULANCE AMBULANCE ALS SERVICE SERVICE EMERGENCY TRANSPORT LEVEL [address] 7 AMBULANCE AMBULANCE PER SERVICE SERVICE STATUTE [facility] [address] [facility] 7 VALLEY DAY HEART MANAGEMEN T > 30 MIN SBSQ 48030 [facility] 7 PHYSICIAN CARE/DAY S GROUP 25 MINUTES GROUND A05 [facility] 7 AMBULANCE AMBULANCE [place] [address] [facility] TRLUML 7 PHYSICIAN CORONARY S GROUP STENT W/ANGIO ONE ART/BRNCH AMB A0426 [facility] 7 AMBULANCE AMBULANCE ALS SERVICE SERVICE NONEMERGE NCY TRANSPORT LEVEL 1 INITIAL 18376 [facility] 7 VALLEY CARE/DAY HEART 50 MINUTES SLCTV 32969 [facility] CATH 7 PHYSICIAN 1STORD S GROUP W/WO ART PUNCT/FLU OR/S&I ELLY SLCTV 42608 [facility] CATH 7 PHYSICIAN SUBCLAVIA S GROUP N ART ANGIO VERTEBRAL ARTERY CATH PLMT 24151 [facility] L HRT & 7 PHYSICIAN PHYSICIAN ARTS S GROUP S GROUP W/NJX & ANGIO IMG S&I FLUORO LT [id number] RICHY LOCKHART 7 [facility] SUBCLAVIA INC INC N ARTERY LOW OSMOLAR CONTRAST MEASUREME [id number] RICHY LOCKHART NT 7 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 HEART LOW INC INC OSMOLAR CONTRAST FLUORO [id number] RICHY LOCKHART BILATERAL 7 [facility] RENAL INC INC ART LOW OSMOLAR CONTRST SBSQ [address]67 [place] [address] PHYSICIAN CARE/DAY S GROUP 15 MINUTES AMB A0427 [facility] 7 AMBULANCE AMBULANCE ALS SERVICE SERVICE EMERGENCY TRANSPORT LEVEL 1 GROUND A0425 [facility] 7 AMBULANCE AMBULANCE PER SERVICE SERVICE STATUTE MILE RADIOLOGI 00505 YARELI EMANUEL C EXAM 7 MEDICAL CHEST 2 IMAGING VIEWS ASS FRONTAL&L ATERAL PULMONARY 39805 [facility] 7 MEDICAL VENTILATI IMAGING ON & ASS PERFUSION IMAGING INITIAL [address] [place] [address] PHYSICIAN A CARE/DAY S GROUP 70 MINUTES DUPLEX 36255 YARELI HEREDIA SCAN 7 MEDICAL EXTRACRAN IMAGING IAL ART ASS COMPL BI STUDY BLD GLU A4253 NAKUL MOTA TEST/REAG 7 HOME HOME T [facility] BLD EQUIPME EQUIPME GLU MON-50 LANCETS A4259 NAKUL NAKUL PER BOX 7 HOME HOME OF 100 MEDICAL MEDICAL EQUIPME EQUIPME DEBRIDEME 21036 ALEXIA AMADORGERSONS NT NAIL 7 ANY METHOD 6/> PARING/CU 6[address] ALEXIA HALE TTING 7 BENIGN HYPERKERA TOTIC LESION 1 NONEMERG A0120 [facility] FEDERATED TRNSPRT: 7 MINI-BUS TRANSPORT TRANSPORT MTN ATION SER ATION SER AREA/OTH SYS NONEMERG A0120 FEDERATED FEDERATED TRNSPRT: 6 MINI-BUS TRANSPORT TRANSPORT MTN ATION SER ATION SER AREA/OTH SYS OPHTH 37351 [facility] 6 EYE XM&EVAL INSTITUTE INTERMEDI ATE ESTAB PT NONEMERG A0120 FEDERATED FEDERATED TRNSPRT: 6 MINI-BUS TRANSPORT TRANSPORT MTN ATION SER ATION SER AREA/OTH SYS DEBRIDEME 10830 ALEXIA TURNERS NT NAIL 6 ANY METHOD 6/> NONEMERG A0120 FEDERATED FEDERATED TRNSPRT: 6 MINI-BUS TRANSPORT TRANSPORT MTN ATION SER ATION SER AREA/OTH SYS PARING/CU 94915 ALEXIA HALE TTING 6 BENIGN HYPERKERA TOTIC LESION 2-4 RADIOLOGI 92324 EXPRESS SHASHY C 6 MOBILE ANN EXAMINATI DIAGNOSTI ON FEMUR C SE MINIMUM 2 VIEWS DEBRIDEME 23636 ALEXIA TURNERS NT NAIL 6 JAM JAM ANY METHOD 6/> RADIOLOGI 15138 EXPRESS EXPRESS C EXAM 6 MOBILE MOBILE CHEST 2 DIAGNOSTI DIAGNOSTI VIEWS C SE C SE FRONTAL&L ATERAL NONEMERG A0120 FEDERATED FEDERATED TRNSPRT: 6 MINI-BUS TRANSPORT TRANSPORT MTN ATION SER ATION SER AREA/OTH SYS DEBRIDEME 67044 JOHNNYS JOHNNYS NT NAIL 6 JAM JAM ANY METHOD 6/> NONEMERG A0120 FEDERATED FEDERATED TRNSPRT: 6 MINI-BUS TRANSPORT TRANSPORT MTN ATION SER ATION SER AREA/OTH SYS FOR DIAB A5512 [place] ONLY MX 6 MEDICAL MEDICAL DNSITY SUPPLY SUPPLY [employer] FORMD PRFAB EA DIAB ONLY A5500 [place] FIT CSTM 6 MEDICAL MEDICAL PREP&SPL SUPPLY SUPPLY [employer] DNSITY INSRT OPHTH 26792 [facility] 6 ANG ANG XM&EVAL COMPRHNSV ESTAB PT 1/> NONEMERG A0120 FEDERATED FEDERATED TRNSPRT: 6 MINI-BUS TRANSPORT TRANSPORT MTN ATION SER ATION SER AREA/OTH SYS NONEMERG A0120 FEDERATED FEDERATED TRNSPRT: 5 MINI-BUS TRANSPORT TRANSPORT MTN ATION SER ATION SER AREA/OTH SYS NONEMERG A0120 FEDERATED FEDERATED TRNSPRT: 5 MINI-BUS TRANSPORT TRANSPORT MTN ATION SER ATION SER AREA/OTH SYS NONEMERG A0120 FEDERATED FEDERATED TRNSPRT: 5 MINI-BUS TRANSPORT TRANSPORT MTN ATION SER ATION SER AREA/OTH SYS BLD GLU A4253 NAKUL MOTA TEST/REAG 5 HOME HOME T [facility]IPS MED[facility] MEDICAL HOME BLD EQUIPME EQUIPME GLU MON-50 LANCETS A4259 NAKUL HUERTASRELL PER BOX 5 HOME HOME OF 100 MEDICAL MEDICAL EQUIPME EQUIPME NONEMERG A0120 FEDERATED FEDERATED TRNSPRT: 5 MINI-BUS TRANSPORT TRANSPORT MTN ATION SER ATION SER AREA/[place] [address] RICHY RICHY INFUSION 5 [facility] THERAPY INC INC PROPHYLAX IS/[place] [address] RICHY RICHY INFUSION 5 [facility] THERAPY/P INC INC ROPHYLAXI S /DX 1ST TO 1 HR XCAPSULAR 99707 [facility] CATAR[facility] 5 KRYSTAL KRYSTAL RMVL INSJ LENS PROSTH 1 STG NONEMERG A0120 FEDERATED FEDERATED TRNSPRT: 5 MINI-BUS TRANSPORT TRANSPORT MTN ATION SER [facility]/OTH SYS NONEMERG A0120 FEDERATED FEDERATED TRNSPRT: 5 MINI-BUS TRANSPORT TRANSPORT MTN ATION SER [facility]/OT SYS NONEMERG A0120 FEDERATED FEDERATED TRNSPRT: 5 MINI-BUS TRANSPORT TRANSPORT MTN ATION SER [facility]/OT SYS NONEMERG A0120 FEDERATED FEDERATED TRNSPRT: 5 MINI-BUS TRANSPORT TRANSPORT MTN ATION SER [facility]/OT SYS NONEMERG A0120 FEDERATED FEDERATED TRNSPRT: 5 MINI-BUS TRANSPORT TRANSPORT MTN ATION SER [facility]/OT SYS NONEMERG A0120 FEDERATED FEDERATED TRNSPRT: 5 MINI-BUS TRANSPORT TRANSPORT MTN ATION SER [facility]/OT SYS NONEMERG A0120 FEDERATED FEDERATED TRNSPRT: 5 MINI-BUS TRANSPORT TRANSPORT MTN ATION SER [facility]/[place] [address] [place] [facility] ALL ABDOMEN & 5 MEDICAL PELVIS IMAGING W/O ASS CONTRAST MATERIAL CT THORAX 70676 RICHY RICHY W/O 5 [facility] CONTRAST INC INC MATERIAL NONEMERG A0120 FEDERATED FEDERATED TRNSPRT: 5 MINI-BUS TRANSPORT TRANSPORT MTN ATION SER [facility]/OT SYS RADIOLOGI 68926 EXPRESS EXPRESS C EXAM 5 MOBILE MOBILE CHEST 2 DIAGNOSTI DIAGNOSTI VIEWS C SE C SE FRONTAL&L ATERAL BLD GLU A4253 NAKUL MOTA TEST/REAG 5 HOME HOME T [facility] HOME BLD EQUIPME EQUIPME GLU MON-50 LANCETS A4259 NAKUL MOTA PER BOX 5 HOME HOME OF 100 MEDICAL MEDICAL EQUIPME EQUIPME NONEMERG A0120 FEDERATED FEDERATED TRNSPRT: 5 MINI-BUS TRANSPORT TRANSPORT MTN ATION SER [facility]/OT SYS EXC B9 58254 [facility] WANDER TOD LESION 5 PHYSICIAN MRGN XCP S GROUP SK TG T/A/L 2.1-3.0 CM NONEMERG A0120 FEDERATED FEDERATED TRNSPRT: 5 MINI-BUS TRANSPORT TRANSPORT MTN ATION SER ATION SER AREA/OTH SYS REPAIR 05084 RICHY LOCKHART INTERMEDI 5 [facility] ATE INC INC S/A/T/E 2.6-7.5 CM NONEMERG A0120 FEDERATED FEDERATED TRNSPRT: 5 MINI-BUS TRANSPORT TRANSPORT MTN ATION SER ATION SER AREA/[place] [address] YARELI GIOVANNA HEAD/BRAI 5 MEDICAL MARTIN N W/O IMAGING CONTRAST ASS MATERIAL NONEMERG A0120 FEDERATED FEDERATED TRNSPRT: 4 TRANS MINI-BUS TRANSPORT SERVBLUEG MTN ATSTEFFANIE SER ALFREDA AREA/OTH SYS LANCETS A4259 NAKUL NAKUL PER BOX 4 HOME HOME OF 100 MEDICAL MEDICAL EQUIPME EQUIPME BLD GLU A4253 NAKUL NAKUL TEST/REAG 4 HOME HOME T [facility] MEDICAL HOME BLD EQUIPME EQUIPME GLU MON-50 LANCETS A4259 NAKUL NAKUL PER BOX 4 HOME HOME OF 100 MEDICAL MEDICAL EQUIPME EQUIPME BLD GLU A4253 NAKUL NAKUL TEST/REAG 4 HOME HOME T [facility]ICAL HOME BLD EQUIPME EQUIPME GLU MON-50 PARING/CU 384[address] ALEXIA HALE TTING 4 JAM JAM BENIGN HYPERKERA TOTIC LESION 1 DEBRIDEME 97535 ALEXIA HALE NT NAIL 4 JAM JAM ANY METHOD 6/> BLD GLU A4253 NAKUL NAKUL TEST/REAG 3 HOME HOME T [facility] HOME BLD EQUIPME EQUIPME GLU MON-50 LANCETS A4259 NAKUL NAKUL PER BOX 3 HOME HOME OF 100 [place] [address] GIOVANNA GIOVANNA ABDOMINAL 3 MARTIN MARTIN [place] TIME W/[place] [address] RICHY RICHY RETROPERI 3 [facility] TONEAL INC INC REAL TIME W/IMAGE COMPLETE NONEMERG A0120 LKLP CAC LKLP CAC TRNSPRT: 3 INC INC MINI-BUS REGION 11 REGION 11 MTN AREA/OTH SYS LANCETS A4259 NAKUL MOTA PER BOX 3 HOME HOME OF 100 MEDICAL MEDICAL EQUIPME EQUIPME BLD GLU A4253 NAKUL NAKUL TEST/REAG 3 HOME HOME T [facility] HOME BLD EQUIPME EQUIPME GLU MON50 RADIOLOGI 04207 EXPRESS EXPRESS C EXAM 3 MOBILE MOBILE CHEST 2 DIAGNOSTI DIAGNOSTI VIEWS C SE C SE FRONTAL&L [facility]TERAL H[facility] 78041 MCKEMIE MCKEMIE DISCHARGE 3 JR YO JR YO DAY MANAGEMEN T 30 MIN/< [place] [address] GIOVANNA GIOVANNA HEAD/BRAI 3 MARTIN MARTIN N W/O CONTRAST MATERIAL ECG 78759 KIERSTEN WEHRMAN ROUTINE 3 III YO III YO ECG W/LEAST 12 LDS I&R ONLY RADIOLOGI 79063 EXPRESS EXPRESS C EXAM 3 MOBILE MOBILE CHEST 2 DIAGNOSTI DIAGNOSTI VIEWS C SE C SE FRONTAL&L ATERAL BLD GLU A4253 NAKUL NAKUL TEST/REAG 3 HOME HOME T [facility] MED[facility] MEDICAL HOME BLD EQUIPME EQUIPME GLU MON NONEMERG A0120 [facility] TRNSPRT: 2 [facility] COMMUNITY MINI-BUS ACTION ACTION MTN AREA/OTH SYS NONEMERG A0120 [facility] TRNSPRT: 2 [facility] COMMUNITY MINI-BUS ACTION ACTION MTN AREA/OTH SYS MRA NECK 54577 GIOVANNA GIOVANNA W/O 2 MARTIN MARTIN CONTRST MATERIAL MRI BRAIN 64332 RICHY LOCKHART BRAIN 2 [facility] STEM W/O INC INC CONTRAST MATERIAL MRI BRAIN 38078 KENT[place]ARY GIOVANNA BRAIN 2 MEDICAL MARTIN STEM W/O IMAGING CONTRAST ASS MATERIAL NONEMERG A0120 [facility] TRNSPRT: 2 [facility] COMMUNITY MINI-BUS ACTION ACTION MTN AREA/OTH SYS MRA HEAD 69385 [place] GIOVANNA W/O 2 MEDICAL MARTIN CONTRST IMAGING MATERIAL ASS NONEMERG A0120 LKLP LKLP TRNSPRT: 2 COMMUNITY COMMUNITY MINI-BUS ACTION ACTION MTN AREA/OTH SYS COMPREHEN 68808 COMBINED COMBINED SIVE 2 PHYSICIAN PHYSICIAN METABOLIC S LA S LA PANEL LIPID 96064 COMBINED COMBINED PANEL 2 PHYSICIAN PHYSICIAN S LA S LA HEMOGLOBI 20021 COMBINED COMBINED N 2 PHYSICIAN PHYSICIAN GLYCOSYLA S LA S LA KEN A1C BLOOD 89832 COMBINED COMBINED COUNT 2 PHYSICIAN PHYSICIAN COMPLETE S LA S LA AUTO&AUTO DIFRNTL WBC RADIOLOGI 00191 WALTER SALMON C 2 MEDICAL FRA EXAMINATI SERV ON KNEE FOUNDATIO 1/2 VIEWS MRI BRAIN 17484 [facility] BRAIN 0 Y Y STEM W/O [facility] CONTRAST MATERIAL BLOOD 11195 [facility] COUNT 0 Y Y COMPLETE [facility] AUTOMATED COMPREHEN 74742 [facility] SIVE 0 Y Y METABOLIC [facility] [place] [address] [facility] THYROID 0 Y Y STIMULATI [facility] NG HORMONE TSH COLLECTIO 15400 [facility] N VENOUS 0 Y Y BLOOD [facility] VENIPUNCT URE RADEX 80711 [facility] SPINE 0 Y Y LUMBOSACR [facility] AL 2/3 VIEWS CYANOCOBA 29430 [facility] LEATHA 0 Y Y VITAMIN [facility] B-12 Encounters Encounter Start End Date Code Location Performer Type Date [facility] - 7 7 [facility] OUTPATIEN [facility]ALS EMERGENCY 05766 7 7 [facility] DEPARTMEN E T VISIT HOSPITALS HIGH/URGE NT SEVERITY OFFICE 10842 CHUY BERG OUTPATIEN 7 7 DEAN T CHUY 30 CLINIC MINUTES [facility] EMERGENCY 07039 MIKEY HOTL DEPT 7 7 PHYSICIAN VISIT S, PLLC HIGH SEVERITY& THREAT [facility] - 7 7 [facility] INPATIENT [facility] EMERGENCY 23020 MIKEY ANTONIO DEPT 7 7 PHYSICIAN U VISIT S, PLLC HIGH SEVERITY& THREAT [facility] OFFICE 17886 YARELI BOLTON OUTPATIEN 7 7 [facility] VISIT INSTITUTE 15 MINUTES OFFICE 07632 WALTER FLEX YA OUTPATIEN 6 6 MEDICAL T VISIT SERV 25 FOUNDATIO MINUTES [facility]OSPITAL [facility] - 5 5 [facility]IEN INC T OFFICE 85330 RICHY ALAN OUTPATIEN 5 5 [facility] 20 HOSPITAL MINUTES P HOSPITAL RICHY - 5 5 [facility] OUTPATIEN INC T OFFICE 64189 RICHY OUTPATIEN 5 5 [facility] T VISIT INC 10 MINUTES [facility]OSPITAL RICH[facility] - 5 5 [facility] OUTPATIEN INC T OFFICE 01216 RICHY NEVIN OUTPATIEN 5 5 [facility] MINUTES HOSPITAL RICHY - 5 5 [facility] OUTPATIEN INC T EMERGENCY 61842 RICHY HOLT 5 5 [facility] T VISIT P MODERATE SEVERITY HOSPITAL RICHY - 3 3 [facility] OUTPATIEN INC T Inpatient IMP Richy Patterson MD (IN) 3 12:43 3 17:10 [facility] OFFICE 31892 GIVEN CUR GIVEN CUR OUTPATIEN 2 2 T [facility] 30 [facility] RICHY - 2 2 [facility] OUTPATIEN INC T OFFICE 54668 MAREN VIRK OUTPATIEN 0 0 [place] [facility] T VISIT MEDICINE 15 P MINUTES OFFICE 41919 LAURA PEREZPATIEN 0 0 MEDICAL [place] A T VISIT SERV 15 FOUNDATIO [facility] UNIVERSIT - 0 0 Y [facility] T OFFICE 79013 WALTER LAURA OUTPATIEN 0 0 MEDICAL [place] A T VISIT SERV 15 FOUNDATIO MINUTES [facility] UNIVERSIT - 0 0 Y [facility] T OFFICE 76195 [place] [facility] 9 9 MEDICAL [place] NEW 45 SERV MINUTES FOUNDATIO
--- OUTSIDE RECORDS SUMMARY | 2016-12-24 07:49 | External Medical Summary Rpt ---
Author Author , LINDSAY MONTOYA Address Unknown Phone [email or web address] Care Team Providers Care Yeast Pumper Name Role Phone PHILLIPS LUZ, PHILLIPS Unavailable Unavailable LUZ VIKY FRA, VIKY Unavailable Unavailable FRA BEINEKE, BEINEKE Unavailable Unavailable CHE, CHE Unavailable Unavailable CHE KRYSTAL, Unavailable Unavailable CHE KRYSTAL CHE KRYSTAL, Unavailable Unavailable CHE KRYSTAL REYNOLDS ALL, REYNOLDS ALL Unavailable Unavailable BRAUDIS, BRAUDIS Unavailable Unavailable BRAUDIS, BRAUDIS Unavailable Unavailable BRAUDIS JAM, BRAUDIS Unavailable Unavailable JAM BRAUDIS JAM, BRAUDIS Unavailable Unavailable JAM [facility] Unavailable Unavailable SERVICE, [facility] Unavailable Unavailable SERVICE, [facility] Unavailable Unavailable [place], [...] Unavailable [facility] Un[facility] Un[facility], [facility] Unavailable [facility]available HOSPITAL P, [facility], Unavailable Unavailable [facility] OTIS BERG Unavailable Unavailable ALEC VIRK, ALEC VIRK Unavailable Unavailable ILDA, [facility] Unavailable Unavailable [facility], [facility] Un[facility] Unavailable [facility], [facility] Un[facility], [facility], [facility] Unavailable Unavailable 11, [facility] Unavailable Unavailable ACTION, [facility] MCKEMIE JR YO, Unavailable Unavailable MCKEMIE JR YO [facility] Unavailable Unavailable [facility], [facility], Unavailable [facility]available [facility], Unavailable Unavailable PLLC, [facility] [...] Clinton Patterson MD [facility]ALTHCARE Unavailable Unavailable HOSPITALS, [facility], Unavailable Unavailable [facility] MCCORD BHAKTI, MCCORD BHAKTI Unavailable Unavailable WEHRMAN [...] deficits E1165 TYPE 2 10-24-2016 [facility] [place] E785 HYPERLIPIDE 10-24-2016 [facility] UNSPECIFIED HOSPITALS I10 ESSENTIAL 10-24-2016 [facility] HYPERTENSIO CLINIC PSC N I129 HYPERTENSIV 10-24-2016 [facility] E CKD HEALTHCARE W/STAGE 1-4 HOSPITALS CKD OR UNS CKD N189 CHRONIC 10-24-2016 [facility] UNSPECIFIED Z8673 PERSONAL HX 10-24-2016 [facility] C[facility]B HOSPITALS INFARCT NO RESID DEFICIT E118 TYPE 2 09-24-2016 [facility] DIABETES [facility], MELLITUS PLLC W/UNS COMPLICATIO NS 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 [facility] 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[facility], 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 N289 DISORDER OF 09-24-2016 [facility] KIDNEY AND [facility], URETER PLLC UNSPECIFIED R4182 ALTERED 09-24-2016 [facility] MENTAL [facility], STATUS PLLC UNSPECIFIED R5383 OTHER 09-24-2016 [facility] I4891 UNSPECIFIED 09-22-2016 [facility] ATRIAL HEART FIBRILLATIO N R748 ABNORMAL 09-22-2016 [facility] LEVELS OF HEART OTHER SERUM ENZYMES I214 NON-ST 09-21-2016 [facility] PHYSICIANS MYOCARDIAL GROUP INFARCTION C24389 ASHD [place] 09-21-2016 [facility] COR ART PHYSICIANS W/UNSTABLE GROUP ANGINA PECTORIS I495 SICK SINUS 09-21-2016 [facility] SYNDROME PHYSICIANS GROUP N183 CHRONIC 09-21-2016 [facility] KIDNEY PHYSICIANS DISEASE GROUP STAGE 3 MODERATE W56269 HEMIPLEGIA 09-20-2016 [facility] FLW PHYSICIANS CEREBRAL GROUP INFARCT AFFCT UNS SIDE 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 [facility] OSIS OF PHYSICIANS RENAL GROUP ARTERY P53656 ENCOUNTER 09-20-2016 [facility] FOR OTHER PHYSICIANS PREPROCEDUR GROUP AL EXAMINATION E1122 TYPE 2 09-19-2016 [facility] MELLITUS INC W/DIAB CHRON KIDNEY DZ 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[facility] 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 U52826 HEMIPLEGIA 09-19-2016 [facility] FLW [facility] CEREBRAL INC INFARCT AFF RT DOM SIDE N390 URINARY 09-19-2016 [facility] TRACT [facility] INFECTION INC SITE NOT SPECIFIED R0602 SHORTNESS 09-19-2016 [facility] OF BREATH PHYSICIANS, PLLC R079 CHEST PAIN 09-19-2016 [facility] UNSPECIFIED AMBULANCE SERVICE R7989 OTHER SPEC 09-19-2016 [facility] ABNORMAL [facility] FINDINGS [facility]ING ASS BLOOD CHEMISTRY E119 TYPE 2 09-15-2016 NAKUL DIABETES HOME MELLITUS MEDICAL WITHOUT EQUIPME COMPLICATIO NS B351 TINEA 09-07-2016 MARJORIEUDIS UNGUIUM E1151 TYPE 2 DM 09-07-2016 BRAUDIS W/DIAB 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 G65097 PAIN IN 09-07-2016 B[facility]UDIS RIGHT TOES A84896 PAIN IN 09-07-2016 BRAUDIS LEFT TOES R600 LOCALIZED 09-07-2016 JOHNNYS EDEMA H1789 OTHER 07-11-2016 [facility] OPACITIES R69 ILLNESS 07-11-2016 [facility]ATED UNSPECIFIED TRANSPORTAT ION SER [id number] FOREIGN 05-27-2016 [facility] BODY IN EYE CORNEA UNS INSTITUTE EYE INITIAL ENCOUNTER Z961 PRESENCE OF 05-27-2016 [facility] INTRAOCULAR [facility] LENS I02696 PAIN IN 01-22-2016 EXPRESS LEFT THIGH MOBILE DIAGNOSTIC SE R7611 NONSPECIFIC 12-30-2015 EXPRESS RXN MOBILE TUBERCULIN DIAGNOSTIC SKIN TEST SE W/O ACT TB N250 RENAL 10-05-2015 [facility] MEDICAL OSTEODYSTRO SERV PHY FOUNDATION Z794 SNF 10-05-2015 CT MEDICAL CURRENT USE SERV OF INSULIN FOUNDATION H2513 AGE-RELATED 07-03-2015 SCIFRES ANG NUCLEAR CATARACT BILATERAL C88018 PUPILLARY 04-28-2015 [facility] ABNORMALITY [facility] LEFT EYE INC P46744 COMBINED 04-28-2015 CHE FORMS OF 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 LEFT EYE H269 UNSPECIFIED 04-28-2015 [facility] CATARACT [facility] INC H5703 MIOSIS 04-28-2015 CHE KRYSTAL N3941 URGE 04-21-2015 [facility] P 2859 UNSPECIFIED 02-25-2015 [facility] ANEMIA [facility] INC 38343 02-25-2015 [facility] TRANSPORTAT ION SER 2410 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 [facility] UNINODULAR [facility] GOITER IMAGING [facility] 49576 DIAB W/O 02-17-2015 [facility] COMP TYPE [facility]OS[facility] II/UNS NOT INC STATED UNCNTRL 2558 OTHER 02-17-2015 [place] SPECIFIED MEDICAL DISORDERS IMAGING ASS OF ADRENAL GLANDS 66383 UNSPEC 02-17-2015 [place] VENTRAL MEDICAL NIMO W/O IMAGING ASS MENTION OBST/GANGRE N 5932 ACQUIRED 02-17-2015 [place] CYST OF MEDICAL KIDNEY IMAGING ASS 64854 NONSPEC 12-25-2014 EXPRESS REACT MOBILE TUBERCULIN DIAGNOSTIC [place] W/[place] [address] OTHER ACUTE 09-19-2014 [facility] PAIN PHYSICIANS GROUP 7062 SEBACEOUS 09-19-2014 [facility] CYST PHYSICIANS GROUP 7820 DISTURBANCE 09-19-2014 [facility] OF SKIN PHYSICIANS SENSATION GROUP V154 PERS HX 09-17-2014 DEPT FOR PSYCHOLOGIC PUBLIC HLTH AL TRAUMA PRS [facility] 4739 UNSPECIFIED 07-04-2014 [facility]INUSITIS [facility] 7813 LACK OF 07-04-2014 [place] COORDINATIO MEDICAL N IMAGING ASS 74503 DIAB W/O 07-03-2014 [facility] MENTION [facility] COMP TYPE HOSPITAL P II/UNS TYPE UNCNTRL 4019 UNSPECIFIED 07-03-2014 [facility] HYPERTEN[facility]O HOSPITAL P N 21905 MUSCLE 07-03-2014 [facility] WEAKNESS [facility] (GENERALIZE HOSPITAL P D) 16696 OTHER 07-03-2014 [facility] P 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 05370 DIAB 06-28-2013 BRAFRANNY MEADE W/PERIPH CIRC D/O TYPE II/UNS NOT UNCNTRL 7011 ACQUIRED 06-28-2013 ALEXIA MEADE KERATODERMA 7295 PAIN IN 06-28-2013 ALEXIA MEADE SOFT TISSUES OF LIMB 7823 EDEMA 06-28-2013 ALEXIA MEADE 5853 CHRONIC 04-15-2013 [facility] KIDNEY [facility] DISEASE INC STAGE III (MODERATE) 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 7533 OTHER 04-15-2013 GIOVANNA SPECIFIED MARTIN CONGENITAL ANOMALIES OF KIDNEY 01995 DEHYDRATION 01-03-2013 SIGRID MONTENEGRO YO 2767 HYPERPOTASS 01-03-2013 SIGRID MONTENEGRO EMIA YO 3319 UNSPECIFIED 01-02-2013 GIOVANNA CEREBRAL MARTIN DEGENERATIO N 514 PULMONARY 12-04-2012 EXPRESS CONGESTION [place] [address] SHORTNESS 12-04-2012 [place] [address] UNSPECIFIED 04-30-2012 GIVEN CUR CEREBRAL ARTERY OCCLUSION W/INFARCT 38111 OCCL&STENOS 04-05-2012 GIOVANNA MX&BILAT MARTIN PRECERBRL ART W/O INFARCT 33547 UNSPEC 04-04-2012 [facility] CERBRL ART MEDICAL OCCLUSION IMAGING ASS W/O MENTION INFARCT 4370 CEREBRAL 04-04-2012 [place] ATHEROSCLER MEDICAL OSIS IMAGING ASS 4371 OTH 04-04-2012 [place] GENERALIZED MEDICAL ISCHEMIC IMAGING ASS CEREBROVASC ULAR DISEASE V5869 LONG-TERM 01-18-2012 COMBINED (CURRENT) PHYSICIANS USE OF [place] OTHER MEDICATIONS 74050 OSTEOARTHRO 12-16-2011 CT MEDICAL SIS UNSPEC SERV WHETHER FOUNDATIO GEN/LOC LOWER LEG 24826 PAIN IN 12-16-2011 CT MEDICAL JOINT, SERV LOWER LEG FOUNDATIO 95989 EXOSTOSIS 12-16-2011 CT MEDICAL OF SERV UNSPECIFIED FOUNDATIO SITE 95583 MEMORY LOSS 08-21-2009 [facility] V1254 PERSONAL HX 08-21-2009 [facility] W/O RESIDUAL DEFICITS 4409 GENERALIZED 07-17-2009 [facility] UNSPECIFIED ATHEROSCLER OSIS 7213 LUMBOSACRAL 07-17-2009 CT MEDICAL SERV 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 7242 LUMBAGO 07-17-2009 [facility] MEDICAL SERV FOUNDAT[facility] 44166 ALTERED 07-17-2009 CT MEDICAL MENTAL SERV STATUS FOUNDATIO 2724 OTHER AND 12-26-2008 CT MEDICAL UNSPECIFIED SERV FOUNDATIO HYPERLIPIDE TRACY 276.7 Hyperkalemi [facility] 586 Uremia [facility] 780.93 [facility] E11.9 TYPE 2 DIABETES MELLITUS WITHOUT COMPLICATIO NS I25.10 ATHSCL HEART DISEASE OF [place] CORONARY ARTERY W/O ANG PCTRS I48.91 UNSPECIFIED [...] 90 -2 -2 .0 00 D ti SC 40 4- 3- 00 14 CA ve [...] 90 -2 -0 .0 00 D ti SC 40 7- 2- 00 14 CA ve [...] 90 -3 -0 .0 00 D ti SC 40 1- 5- 00 13 CA ve [...] 90 -0 -0 .0 00 D ti SC 40 3- 7- 00 13 CA ve [...] 90 -0 -1 .0 00 D ti SC 40 3- 0- 00 13 CA ve [...] 90 -0 -1 .0 00 D ti SC 40 5- 0- 00 13 CA ve [...] 90 -0 -0 .0 00 D ti SC 40 9- 00 13 CA ve N [...] 017 mmol/L ed d-sCn 16:17 c Glucose [facility] Glucomtr-[facility] (01-04-2013 11:50) Glucose 120 70-110 complet BldC 013 mg/dl ed Glucomt 11:50 r-[facility] BASIC METABOLIC PANEL (01-04-2013 07:30) Glucose 100 [...] complet BldC 013 mg/dl ed Glucomt 20:12 r-[facility] Glucose BldC Glucomtr-nc (01-03-2013 17:03) Glucose 01-03-2 199 70-110 complet BldC 013 mg/dl ed Glucomt 17:03 r-[facility] Glucose BldC Glucomtr-[facility] (01-03-2013 11:29) Glucose 01-03-2 133 70-110 complet BldC 013 mg/dl ed Glucomt 11:29 r-[facility] BASIC METABOLIC PANEL (01-03-2013 06:30) Glucose 106 [...] 1 ed SerPl-m 06:30 Cnc Glucose BldC Glucomtr-[facility] (01-03-2013 06:30) Glucose 07-18-2 111 70-110 complet BldC 013 mg/dl ed Glucomt 06:30 r-mCnc Glucose BldC Glucomtr-[facility] (01-02-2013 21:10) Glucose 07-17-2 238 70-110 complet BldC 013 mg/dl ed Glucomt 21:10 r-mCnc [facility] (01-02-2013 18:08) Ammonia 07-17-2 3 11-32 complet 013 umoL/L ed Plas-sC 18:08 nc Glucose BldC Glucomtr-[facility] (01-02-2013 16:53) Glucose 07-17-2 111 70-110 complet [...] Procedure DOS Code Location Performer Comment RADIOLOGI 94949 [place] C EXAM 7 HEALTHCAR HEALTHCAR CHEST 2 E E VIEWS [facility] FRONTAL&L ATERAL KETONE 22860 [place] BODIES 7 HEALTHCAR HEALTHCAR SERUM E E QUANTITAT [facility] ALIREZA GLUC BLD 49310 [facility] One GLUC MNTR 7 [facility] CLEARED PSC FDA SPEC HOME USE HEMOGLOBI 76603 CHUY OTIS N 7 [facility] KEN A1C PSC BLOOD 44217 [facility] COUNT 7 HEALTHCAR HEALTHCAR COMPLETE E E AUTOMATED [facility] COMPREHEN 35135 [place] SIVE 7 HEALTHCAR HEALTHCAR METABOLIC E E PANEL [facility]IT[facility] GASES 03881 [place] [facility] BLOOD PH 7 HEALTHCAR HEALTHCAR DIRECT E E LISETTE XCPT [facility] [address] [place] [facility] LACTATE 7 HEALTHCAR HEALTHCAR E E [place] [address] YARELI HEREDIA HEAD/BRAI 7 MEDICAL N W/O IMAGING CONTRAST ASS MATERIAL RADIOLOGI 60945 YARELI BEINEKE C 7 MEDICAL EXAMINATI IMAGING ON CHEST ASS [place] FRONTAL AMB A0427 [facility] SERVICE 7 AMBULANCE AMBULANCE ALS SERVICE SERVICE EMERGENCY TRANSPORT LEVEL [address] 7 AMBULANCE AMBULANCE PER SERVICE SERVICE STATUTE [facility] [address] [facility] 7 VALLEY DAY HEART MANAGEMEN T > 30 MIN SBSQ 42529 [facility] 7 PHYSICIAN CARE/DAY S GROUP 25 MINUTES GROUND A05 [facility] MILEAGE 7 AMBULANCE AMBULANCE [place] [address] [facility] TRLUML 7 PHYSICIAN CORONARY S GROUP STENT W/ANGIO ONE ART/BRNCH AMB A0426 [facility] 7 AMBULANCE AMBULANCE ALS SERVICE SERVICE NONEMERGE NCY TRANSPORT LEVEL 1 INITIAL 69016 [facility] 7 VALLEY CARE/DAY HEART 50 MINUTES SLCTV 77791 [facility] CATH 7 PHYSICIAN 1STORD S GROUP W/WO ART PUNCT/FLU OR/S&I ELLY SLCTV 52225 [facility] CATH 7 PHYSICIAN SUBCLAVIA S GROUP N ART ANGIO VERTEBRAL ARTERY CATH PLMT 31056 [facility] L HRT & 7 PHYSICIAN PHYSICIAN ARTS S GROUP S GROUP W/NJX & ANGIO IMG S&I FLUORO LT [id number] [facility] 7 [facility] SUBCLAVIA INC INC N ARTERY LOW OSMOLAR CONTRAST MEASUREME [id number] [facility] NT 7 [facility] CARDIAC INC INC 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 LT HEART PERQ FLUORO [id number] [facility] MULTI 7 [facility] CORONARY INC INC ARTERIES LOW OSMOLAR CONT FLUOROSCO [id number] [facility] PY LEFT 7 [facility] HEART LOW INC INC OSMOLAR CONTRAST FLUORO M1994EM R[facility] BILATERAL 7 [facility] RENAL INC INC ART LOW OSMOLAR CONTRST SBSQ 70485 [place] [address] PHYSICIAN CARE/DAY S GROUP 15 MINUTES AMB A0427 [facility] 7 AMBULANCE AMBULANCE ALS SERVICE SERVICE EMERGENCY TRANSPORT LEVEL 1 GROUND A0425 [facility] AMBULANCE PER SERVICE SERVICE STATUTE MILE RADIOLOGI 33908 YARELI EMANUEL C EXAM 7 MEDICAL CHEST 2 IMAGING VIEWS ASS FRONTAL&L ATERAL PULMONARY 53144 [facility] 7 MEDICAL VENTILATI IMAGING ON & ASS PERFUSION IMAGING INITIAL [address] [place] [address] PHYSICIAN A CARE/DAY S GROUP 70 MINUTES DUPLEX 50562 YARELI HEREDIA SCAN 7 MEDICAL EXTRACRAN IMAGING IAL ART ASS COMPL BI STUDY BLD GLU A4253 NAKUL MOTA TEST/REAG 7 HOME HOME T STRIPS MEDICAL MEDICAL HOME BLD EQUIPME EQUIPME GLU MON-50 LANCETS A4259 NAKUL NAKUL PER BOX 7 HOME HOME OF 100 MEDICAL MEDICAL EQUIPME EQUIPME DEBRIDEME 60091 ALEXIA AMADORGERSONS NT NAIL 7 ANY METHOD 6/> [place]/CU [address] ALEXIA HALE TTING 7 BENIGN HYPERKERA TOTIC LESION 1 NONEMERG A0120 [facility] FEDERATED TRNSPRT: 7 [facility] TRANSPORT TRANSPORT MTN ATION SER ATION SER AREA/OTH SYS NONEMERG A0120 [facility]ATED FEDERATED TRNSPRT: 6 [facility]I-[facility] TRANSPORT TRANSPORT MTN ATION SER ATION SER AREA/OTH SYS OPHTH 72957 [facility] 6 EYE XM&EVAL INSTITUTE INTERMEDI ATE ESTAB PT NONEMERG A0120 FEDERATED FEDERATED TRNSPRT: 6 MINI-BUS TRANSPORT TRANSPORT MTN ATION SER ATION SER AREA/OTH SYS DEBRIDEME 20159 ALEXIA TURNERS NT NAIL 6 ANY METHOD 6/> NONEMERG A0120 FEDERATED FEDERATED TRNSPRT: 6 [facility]I-BUS TRANSPORT TRANSPORT MTN ATION SER ATION SER AREA/OTH SYS PARING/CU 14076 ALEXIA HALE TTING 6 BENIGN HYPERKERA TOTIC LESION 2-4 RADIOLOGI 89570 [facility] SHASHY C 6 MOBILE ANN EXAMINATI DIAGNOSTI ON FEMUR C SE MINIMUM 2 VIEWS DEBRIDEME 08447 ALEXIA TURNERS NT NAIL 6 JAM JAM ANY METHOD 6/> RADIOLOGI 10178 EXPRESS EXPRESS C EXAM 6 MOBILE MOBILE CHEST 2 DIAGNOSTI DIAGNOSTI VIEWS C SE C SE FRONTAL&L ATERAL NONEMERG A0120 [facility]ATED FEDERATED TRNSPRT: 6 MINI-BUS TRANSPORT TRANSPORT MTN ATION SER ATION SER AREA/OTH SYS DEBRIDEME 01210 JOHNNYS JOHNNYS NT NAIL 6 JAM JAM [...] [employer] DNSITY INSRT OPHTH 99089 [facility] 6 ANG ANG XM&EVAL COMPRHNSV ESTAB PT [...] ATION SER ATION SER AREA/[place] [address] RICHY R[facility]Y INFUSION 5 [facility] THERAPY INC INC PROPHYLAX IS/[place] [address] RICHY R[facility]Y INFUSION 5 [facility] THERAPY/P INC INC ROPHYLAXI S /DX 1ST TO 1 HR XCAPSULAR 96699 [facility] CATARACT 5 KRYSTAL KRYSTAL RMVL INSJ LENS PROSTH 1 STG NONEMERG A0120 FEDERATED FEDERATED TRNSPRT: 5 [facility] TRANSPORT TRANSPORT MTN ATION SER ATPSYCHIATRIC/OTH SYS NONEMERG A0120 [facility]ATED FEDERATED TRNSPRT: 5 [facility] TRANSPORT TRANSPORT MTN ATION SER ATPSYCHIATRIC/OT SYS NONEMERG A0120 FEDERATED FEDERATED TRNSPRT: 5 [facility]I-[facility] TRANSPORT TRANSPORT MTN ATION SER ATPSYCHIATRIC/OT SYS NONEMERG A0120 FEDERATED FEDERATED TRNSPRT: 5 [facility]I-BUS TRANSPORT TRANSPORT MTN ATION SER ATPSYCHIATRIC/OT SYS NONEMERG A0120 FEDERATED FEDERATED TRNSPRT: 5 [facility]I-[facility] TRANSPORT TRANSPORT MTN ATION SER ATPSYCHIATRIC/OT SYS NONEMERG A0120 FEDERATED FEDERATED TRNSPRT: 5 MINI-BUS TRANSPORT TRANSPORT MTN ATION SER ATPSYCHIATRIC/OT SYS NONEMERG A0120 FEDERATED FEDERATED TRNSPRT: 5 MINI-BUS TRANSPORT TRANSPORT MTN ATION SER ATPSYCHIATRIC/[place] [address] [place] [facility] ALL ABDOMEN & 5 MEDICAL PELVIS IMAGING W/O ASS CONTRAST MATERIAL CT THORAX 83731 RICHY RICHY W/O 5 [facility] CONTRAST INC INC MATERIAL NONEMERG A0120 FEDERATED FEDERATED TRNSPRT: 5 MINI-BUS TRANSPORT TRANSPORT MTN ATION SER ATPSYCHIATRIC/OT SYS RADIOLOGI 51656 [facility] EXPRESS C EXAM 5 MOBILE MOBILE [...] 5 MINI-BUS TRANSPORT TRANSPORT MTN ATION SER ATPSYCHIATRIC/OT SYS EXC B9 07841 [facility] WANDER TOD LESION 5 PHYSICIAN MRGN XCP S GROUP SK TG T/A/L 2.1-3.0 CM NONEMERG A0120 FEDERATED FEDERATED TRNSPRT: 5 [facility] TRANSPORT TRANSPORT MTN ATION SER ATION SER AREA/OTH SYS REPAIR 62048 [facility] INTERMEDI 5 [facility] ATE INC INC S/A/T/E 2.6-7.5 CM NONEMERG A0120 FEDERATED FEDERATED TRNSPRT: 5 [facility] TRANSPORT TRANSPORT MTN ATION SER ATION SER AREA/[place] [address] YARELI GIOVANNA HEAD/BRAI 5 MEDICAL MARTIN N [...] HOME BLD EQUIPME EQUIPME GLU MON-50 PAR[place]/CU [address] ALEXIA HALE TTING 4 JAM JAM BENIGN HYPERKERA TOTIC LESION 1 DEBRIDEME 74082 ALEXIA HALE NT NAIL 4 JAM JAM ANY METHOD 6/> BLD GLU A4253 NAKUL NAKUL TEST/REAG 3 HOME HOME T STRIPS MEDICAL MEDICAL HOME BLD EQUIPME EQUIPME GLU MON-50 LANCETS A4259 NAKUL NAKUL PER BOX 3 HOME HOME OF 100 MEDICAL [place]ICAL [place] [address] GIOVANNA GIOVANNA ABDOMINAL 3 MARTIN MARTIN REAL TIME W/[place] [address] RICHY RICHY RETROPERI 3 MEM HOSP MEM [...] HOME BLD EQUIPME EQUIPME GLU MON50 RADIOLOGI 86050 EXPRESS EXPRESS C EXAM 3 MOBILE MOBILE CHEST 2 DIAGNOSTI DIAGNOSTI VIEWS C SE C SE FRONTAL&L [facility]AL [facility] 23153 MCKEMIE MCKEMIE DISCHARGE 3 JR YO JR YO DAY MANAGEMEN T 30 MIN/< [place] [address] GIOVANNA GIOVANNA HEAD/BRAI 3 MARTIN MARTIN N W/O CONTRAST MATERIAL ECG 92499 KIERSTEN WEHRMAN ROUTINE 3 III YO III YO ECG W/LEAST 12 LDS I&R ONLY RADIOLOGI 09218 EXPRESS EXPRESS C EXAM 3 MOBILE MOBILE CHEST 2 DIAGNOSTI DIAGNOSTI VIEWS C SE C SE FRONTAL&L ATERAL BLD GLU A4253 NAKUL NAKUL TEST/REAG 3 HOME HOME T STRIPS MEDICAL MEDICAL HOME BLD EQUIPME EQUIPME GLU MON NONEMERG A0120 [facility] TRNSPRT: 2 [facility] COMMUNITY MINI-BUS ACTION ACTION MTN AREA/OTH SYS NONEMERG A0120 [facility] TRNSPRT: 2 [facility] COMMUNITY MINI-BUS ACTION ACTION MTN AREA/OTH SYS MRA NECK 82416 GIOVANNA GIOVANNA W/O 2 MARTIN MARTIN CONTRST MATERIAL MRI BRAIN 86479 [facility] LOCK[facility]ART BRAIN 2 [facility] STEM W/O INC INC CONTRAST MATERIAL MRI BRAIN 97858 [place] GIOVANNA BRAIN 2 MEDICAL MARTIN STEM W/O IMAGING CONTRAST ASS MATERIAL NONEMERG A0120 [facility] TRNSPRT: 2 [facility] COMMUNITY MINI-BUS ACTION ACTION MTN AREA/OTH SYS MRA HEAD 03252 [place] GIOVANNA W/O 2 MEDICAL MARTIN CONTRST IMAGING MATERIAL ASS NONEMERG A0120 LKLP LKLP TRNSPRT: 2 COMMUNITY COMMUNITY MINI-BUS ACTION ACTION MTN AREA/OTH SYS COMPREHEN 98546 COMBINED COMBINED SIVE 2 PHYSICIAN PHYSICIAN METABOLIC S LA S LA PANEL LIPID 12551 COMBINED COMBINED PANEL 2 PHYSICIAN PHYSICIAN S LA S LA HEMOGLOBI 13599 COMBINED COMBINED N 2 PHYSICIAN PHYSICIAN GLYCOSYLA S LA S LA KEN A1C BLOOD 25850 COMBINED COMBINED COUNT 2 PHYSICIAN PHYSICIAN COMPLETE S LA S LA AUTO&AUTO DIFRNTL WBC RADIOLOGI 95804 [facility]TER SALMON C 2 MEDICAL FRA EXAMINATI SERV ON KNEE FOUNDATIO 1/[address]RAIN 22[address] [facility] BRAIN 0 Y Y STEM W/O [facility] CONTRAST MATERIAL BLOOD 53041 [facility] COUNT 0 Y Y COMPLETE [facility] AUTOMATED COMPREHEN 20664 [facility] SIVE 0 Y Y METABOLIC [facility] [place] [address] [facility] THYROID 0 Y Y STIMULATI [facility] NG HORMONE TSH COLLECTIO 28431 [facility] N VENOUS 0 Y Y BLOOD [facility] VENIPUNCT URE RADEX [address] [facility] SPINE 0 Y Y LUMBOSACR [facility] AL 2/[address] [facility] LEATHA 0 Y Y VITAMIN [facility] B-12 Encounters Encounter Start End Date Code Location Performer Type Date [facility] - 7 7 [facility] EMERGENCY [id number] 7 7 [facility] DEPARTMEN E T VISIT HOSPITALS HIGH/URGE NT SEVERITY OFFICE 12025 CHUY BERG OUTPATIEN 7 7 DEAN T CHUY 30 CLINIC MINUTES [facility] EMERGENCY 26273 MIKEY HOLT DEPT 7 7 PHYSICIAN VISIT S, [facility] HIGH SEVERITY& THREAT [facility] - 7 7 [facility] INPATIENT [facility] EMERGENCY 90097 MIKEY ANTONIO DEPT 7 7 PHYSICIAN U VISIT S, PLLC HIGH SEVERITY& THREAT [facility] OFFICE 98457 YARELI BOLTON OUTPATIEN 7 7 [facility] 15 MINUTES OFFICE 29229 WALTER FLEX YA OUTPATIEN 6 6 MEDICAL T VISIT SERV 25 FOUNDATIO MINUTES [facility] - 5 5 [facility] T OFFICE 92211 R[facility] ALAN OUTPATIEN 5 5 [facility] 20 HOSPITAL MINUTES P [facility] - 5 5 [facility] INC T OFFICE 98285 R[facility] OUTPATIEN 5 5 [facility] T VISIT INC 10 MINUTES [facility]OS[facility] - 5 5 [facility] T OFFICE 20495 R[facility] NEVIN OUTPATIEN 5 5 [facility] MINUTES [facility]OSPITAL [facility] - 5 5 [facility] T EMERGENCY 79121 R[facility]Y HOLT 5 5 [facility] T VISIT P MODERATE SEVERITY [facility]OSPITAL [facility] - 3 3 [facility] OUT[facility]IEN INC T Inpatient IMP Richy Patterson MD (IN) 3 12:43 3 17:10 [facility] OFFICE 57606 GIVEN CUR GIVEN CUR OUTPATIEN 2 2 T [facility] 30 [facility] R[facility] - 2 2 [facility] T OFFICE 00996 MAR[place] VIRK OUTPATIEN 0 0 [place] [facility] T [facility] MEDICINE 15 P MINUTES OFFICE 07521 LAURA PEREZPATIEN 0 0 MEDICAL [place] A T VISIT SERV 15 FOUNDATIO [facility]ERS[facility] 89157 W[facility]TER LAURA OUTPATIEN 0 0 MEDICAL [place] A T VISIT SERV 15 FOUNDATIO MINUTES [facility] UNIVERSIT - 0 0 Y [facility] T OFFICE [address]16 [place] [facility] 9 9 MEDICAL [place]son NEW 45 SERV MINUTES FOUNDATIO
--- OUTSIDE RECORDS SUMMARY | 2016-12-24 07:53 | External Medical Summary Rpt ---
Author Author , LINDSAY Organization LINDSAY Address Unknown Phone [email or web address] Care Team Providers Care Oracle Wms Consultant Name Role Phone PHILLIPS LUZ, PHILLIPS Unavailable Unavailable LUZ VIKY FRA, VIKY Unavailable Unavailable FRA BEINEKE, BEINEKE Unavailable Unavailable CHE, CHE Unavailable Unavailable CHE KRYSTAL, Unavailable Unavailable CHE KRYSTAL CHE KRYSTAL, Unavailable Unavailable CHE KRYSTAL REYNOLDS ALL, REYNOLDS ALL Unavailable Unavailable BRAUDIS, BRAUDIS Unavailable Unavailable BRAUDIS, BRAUDIS Unavailable Unavailable BRAUDIS JAM, BRAUDIS Unavailable Unavailable JAM BRAUDIS JAM, BRAUDIS Unavailable Unavailable JAM [facility] Unavailable Unavailable SERVICE, [facility] Unavailable Unavailable SERVICE, [facility] Unavailable Unavailable [place], [...] Unavailable GIVEN CUR, GIVEN CUR Unavailable Unavailable JUAN JOSÉ ENCARNACION, Unavailable Unavailable JUAN JOSÉ ENCARNACION [facility] Unavailable Unavailable INC, [facility] Unavailable Unavailable HOSPITAL P, [facility] P [facility], Unavailable Unavailable [facility] OTIS BERG Unavailable Unavailable ALEC MCMULLEN Unavailable Unavailable ILDA, ILDA Unavailable Unavailable [facility], [facility] Unavailable Unavailable [facility], [facility] Un[facility], [facility] Un[facility], [facility] Unavailable Unavailable 11, [facility] 11 [facility] Unavailable Unavailable ACTION, [facility] SIGRID MONTENEGRO YO, Unavailable Unavailable MCKEMIE JR YO [facility] Unavailable Unavailable [facility], [facility], Unavailable Unavailable [facility], Unavailable Unavailable PLLC, [facility] LAURA, MALACHI A, Unavailable Unavailable LAURA, MALACHI A WANDER TOD, WANDER TOD Unavailable Unavailable SCIFRES ANG, SCIFRES Unavailable Unavailable ANG SCIFRES ANG, SCIFRES Unavailable Unavailable ANG MALICKY ANN, SHASHY Unavailable Unavailable ANN MOISE, JOSE MARIA Unavailable Unavailable IVY CANDELARIA, Unavailable Unavailable IVY CANDELARIA [facility] Unavailable Unavailable EQUIPME, [facility] Unavailable Unavailable [facility]QU[facility], [facility] SOTINGEANU, Unavailable Unavailable SOTINGEANU [facility], Unavailable Unavailable [facility] Un[facility], [facility], Unavailable Unavailable [facility] MCCORD BHAKTI, MCCORD BHAKTI Unavailable Unavailable WEHRMAN III OY, Unavailable Unavailable WEHRMAN III YO Purpose Continuity of Care Document - 12-26-2008 through 2016 Problems Code Diagnosis DOS Provider Status E1165 TYPE 2 10-24-2016 [facility] [place] HYPERGLYCEM [place] E785 HYPERLIPIDE 10-24-2016 [facility] UNSPECIFIED HOSPITALS I10 ESSENTIAL 10-24-2016 [facility] [place] [facility] N I129 HYPERTENSIV 10-24-2016 [facility] E CKD [facility] W/STAGE 1-4 HOSPITALS CKD OR UNS CKD N189 CHRONIC 10-24-2016 [facility] UNSPECIFIED Z8673 PERSONAL HX 10-24-2016 [facility]B H[facility]PITALS INFARCT NO RESID DEFICIT E118 TYPE 2 09-24-2016 [facility], MELLITUS PLLC W/UNS COMPLICATIO NS 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 09-24-2016 [facility] CORONARY [facility], 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 N289 DISORDER OF 09-24-2016 [facility], URETER PLLC UNSPECIFIED R4182 ALTERED 09-24-2016 [facility], STATUS PLLC UNSPECIFIED R5383 OTHER 09-24-2016 [facility] I4891 UNSPECIFIED 09-22-2016 [facility] ATRIAL HEART FIBRILLATIO N R748 ABNORMAL 09-22-2016 [facility] LEVELS OF HEART OTHER SERUM ENZYMES I214 NON-ST 09-21-2016 [facility] ELEVATION PHYSICIANS MYOCARDIAL GROUP INFARCTION A43744 ASHD LOVELOCK 09-21-2016 [facility] COR ART PHYSICIANS W/UNSTABLE GROUP ANGINA PECTORIS I495 SICK SINUS 09-21-2016 [facility] SYNDROME PHYSICIANS GROUP N183 CHRONIC 09-21-2016 [facility] KIDNEY PHYSICIANS DISEASE GROUP STAGE 3 MODERATE N70180 HEMIPLEGIA 09-20-2016 [facility] FLW PHYSICIANS CEREBRAL GROUP INFARCT AFFCT UNS SIDE 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 [facility] OSIS OF PHYSICIANS RENAL GROUP ARTERY Z62412 ENCOUNTER 09-20-2016 [facility] FOR OTHER PHYSICIANS PREPROCEDUR GROUP AL EXAMINATION E1122 TYPE 2 09-19-2016 [facility] DIABETES [facility] MELLITUS INC W/DIAB CHRON KIDNEY DZ 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[facility] 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 R31246 HEMIPLEGIA 09-19-2016 [facility] FLW [facility] CEREBRAL INC INFARCT AFF RT DOM SIDE N390 URINARY 09-19-2016 [facility] TRACT [facility] INFECTION INC SITE NOT SPECIFIED R0602 SHORTNESS 09-19-2016 [facility] OF BREATH PHYSICIANS, [facility] R079 CHEST PAIN 09-19-2016 [facility] UNSPECIFIED AMBULANCE SERVICE R7989 OTHER SPEC 09-19-2016 [facility] ABNORMAL [facility] FINDINGS [facility]ING ASS BLOOD CHEMISTRY E119 TYPE 2 09-15-2016 [facility] DIABETES HOME MELLITUS MEDICAL WITHOUT EQUIPME COMPLICATIO NS B351 TINEA 09-07-2016 BRAUDIS UNGUIUM E1151 TYPE 2 DM 09-07-2016 B[facility]IS W/DIAB 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 W61419 PAIN IN 09-07-2016 B[facility] RIGHT TOES X58085 PAIN IN 09-07-2016 BRA[facility] LEFT TOES R600 LOCALIZED 09-07-2016 [facility] EDEMA H1789 OTHER 07-11-2016 [facility] OPACITIES R69 ILLNESS 07-11-2016 [facility] UNSPECIFIED TRANSPORTAT ION SER [id number] FOREIGN 05-27-2016 [facility] EYE CORNEA UNS INSTITUTE EYE INITIAL ENCOUNTER Z961 PRESENCE OF 05-27-2016 [facility] LENS [id number] PAIN IN 01-22-2016 EXPRESS LEFT THIGH MOBILE DIAGNOSTIC SE R7611 NONSPECIFIC 12-30-2015 EXPRESS RXN MOBILE TUBERCULIN DIAGNOSTIC SKIN TEST SE W/O ACT TB N250 RENAL 10-05-2015 [facility] MEDICAL OSTEODYSTRO SERV PHY FOUNDATION Z794 CORRECTION 10-05-2015 ID MEDICAL CURRENT USE SERV OF INSULIN [facility] H2513 AGE-RELATED 07-03-2015 SCIFRES ANG NUCLEAR CATARACT BILATERAL U50178 PUPILLARY 04-28-2015 [facility] ABNORMALITY [facility] LEFT EYE INC R08397 COMBINED 04-28-2015 CHE FORMS OF 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 LEFT EYE H269 UNSPECIFIED 04-28-2015 [facility] CATARACT [facility] INC H5703 MIOSIS 04-28-2015 CHE KRYSTAL N3941 URGE 04-21-2015 [facility] P 2859 UNSPECIFIED 02-25-2015 [facility] ANEMIA [facility] INC 03001 02-25-2015 [facility] TRANSPORTAT ION SER 2410 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 [facility] UNINODULAR [facility] GOITER [facility] 03951 DIAB W/O 02-17-2015 [facility] COMP TYPE [facility] II/UNS NOT INC STATED UNCNTRL 2558 OTHER 02-17-2015 [facility] SPECIFIED MEDICAL DISORDERS IMAGING ASS OF [place] 25715 UNSPEC 02-17-2015 [place] VENTRAL MEDICAL NIMO W/O IMAGING ASS MENTION OBST/GANGRE N 5932 ACQUIRED 02-17-2015 [facility] CYST OF MEDICAL KIDNEY IM[facility]ING ASS 92955 NONSPEC 12-25-2014 EXPRESS REACT MOBILE TUBERCULIN DIAGNOSTIC [place] W/[place] [address] OTHER ACUTE 09-19-2014 [facility] PAIN PHYSICIANS GROUP 7062 SEBACEOUS 09-19-2014 [facility] CYST PHYSICIANS GROUP 7820 DISTURBANCE 09-19-2014 [facility] OF SKIN PHYSICIANS SENSATION GROUP V154 PERS HX 09-17-2014 [facility] PSYCHOLOGIC PUBLIC HLTH AL TRAUMA PRS [facility] 4739 UNSPECIFIED 07-04-2014 [facility]US[facility]IS [facility] 7813 LACK OF 07-04-2014 [facility] COORDINATIO MEDICAL N IMAGING ASS 00218 DIAB W/O 07-03-2014 [facility] [address]ENT[address] 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 MARJORIEFRANNY HALINA OSIS OF NAIL 28221 DIAB 06-28-2013 JOHNNYReshma MEADE W/PERIPH CIRC D/O TYPE II/UNS NOT UNCNTRL 7011 ACQUIRED 06-28-2013 ALEXIA MEADE KERATODERMA 7295 PAIN IN 06-28-2013 ALEXIA MEADE SOFT TISSUES OF LIMB 7823 EDEMA 06-28-2013 MARJORIEFRANNY MEADE 5853 CHRONIC 04-15-2013 [place] [facility] DISEASE INC STAGE III (MODERATE) 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 7533 OTHER 04-15-2013 GI[facility] SPECIFIED MARTIN CONGENITAL ANOMALIES OF KIDNEY 41765 DEHYDRATION 01-03-2013 SIGRID MONTENEGRO YO 2767 HYPERPOTASS 01-03-2013 SIGRID MONTENEGRO EMIA YO 3319 UNSPECIFIED 01-02-2013 GI[facility] CEREBRAL MARTIN DEGENERATIO N 514 PULMONARY 12-04-2012 EXPRESS CONGESTION [place] [address] SHORTNESS 12-04-2012 [place] [address] UNSPECIFIED 04-30-2012 GIVEN CUR CEREBRAL ARTERY OCCLUSION W/INFARCT 17837 OCCL&STENOS 04-05-2012 GIOV[facility]NA MX&BILAT MARTIN PRECERBRL ART W/O INFARCT 29904 UNSPEC 04-04-2012 [place] CERBRL ART MEDICAL OCCLUSION IMAGING ASS W/O MENTION INFARCT 4370 CEREBRAL 04-04-2012 [place] ATHEROSCLER MEDICAL OSIS IM[facility]ING ASS 4371 OTH 04-04-2012 [place] GENERALIZED MEDICAL ISCHEMIC IMAGING ASS CEREBROVASC ULAR DISEASE V5869 LONG-TERM 01-18-2012 COMBINED (CURRENT) PHYSICIANS USE OF [place] OTHER MEDICATIONS 94136 OSTEOARTHRO 12-16-2011 [place] [facility] UNSPEC SERV WHETHER FOUNDATIO GEN/LOC LOWER LEG 18155 PAIN IN 12-16-2011 [place] [facility] JOINT, SERV LOWER LEG [facility] 47406 EXOSTOSIS 12-16-2011 [place] [facility] OF SERV UNSPECIFIED FOUNDATIO SITE 31367 MEMORY LOSS 08-21-2009 [facility] V1254 PERSONAL HX 08-21-2009 [facility] W/O RESIDUAL DEFICITS 4409 GENERALIZED 07-17-2009 [facility] UNSPECIFIED ATHEROSCLER OSIS 7213 LUMBOSACRAL 07-17-2009 [facility] SERV 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 7242 LUMBAGO 07-17-2009 [facility] 79615 ALTERED 07-17-2009 [facility] MED[facility] MENTAL SERV STATUS FOUNDATIO 2724 OTHER AND 12-26-2008 [facility] MEDICAL UNSPECIFIED SERV FOUNDATIO HYPERLIPIDE PAT Medications Na ND Rx Da Fi Fi [...] 90 -2 -2 .0 00 D ti MD 40 4- 3- 00 14 CA ve [...] 90 -2 -0 .0 00 D ti MD 40 7- 2- 00 14 CA ve [...] 90 -3 -0 .0 00 D ti MD 40 1- 5- 00 13 CA ve [...] PH TA AR BL MA ET CY 64 03 04 8. 28 00 ME Ac T 38 -0 -0 00 00 D ti D2 00 6- 7- 0 13 CA ve 73 20 20 84 RE 1. 70 17 17 30 25 6 84 PH AR MG MA CY (5 0, 00 0 UN IT ) LO 00 03 04 30 30 00 ME Ac RA 78 -0 -0 .0 00 D ti TA 15 2- 7- 00 13 CA ve DI 07 20 20 82 RE NE 70 17 17 90 1 01 PH 10 AR MA MG CY TA BL ET 00 03 04 30 30 00 ME Ac TA 90 -0 -0 .0 00 D ti MD 40 3- 7- 00 13 CA ve N 52 20 20 83 RE C 38 17 17 76 50 0 10 PH 0 AR MG MA CY TA BL ET TA 00 02 03 30 30 00 [...] 90 -0 -1 .0 00 D ti MD 40 3- 0- 00 13 CA ve [...] 90 -0 -1 .0 00 D ti MD 40 5- 0- 00 13 CA ve [...] C TA BL ET TA 00 12 01 30 30 00 ME Ac B- 90 -1 -1 .0 00 D ti A- 40 4- 3- 00 13 CA ve 53 20 20 44 RE TE 08 16 17 23 0 95 PH TA AR BL MA ET CY LL C LO 00 12 01 30 30 00 ME Ac RA 78 -0 -0 .0 00 D ti TA 15 3- 9- 00 13 CA ve DI 07 20 20 39 RE NE 70 16 17 16 1 27 PH 10 AR MA MG CY TA LL BL C ET 00 12 01 30 30 00 ME Ac TA 90 -0 -0 .0 00 D ti MD 40 7- 9- 00 13 CA ve N 52 20 20 40 RE C 38 16 17 98 50 0 09 PH 0 AR MG MA CY TA BL LL ET C Procedures Procedure DOS Code Location Performer Comment BLOOD 40354 [facility] COUNT 7 [facility] COMPLETE E E AUTOMATED [facility] RADIOLOGI 52222 [facility] C EXAM 7 [facility] CHEST 2 E E VIEWS [facility] FRONTAL&L ATERAL KETONE 27948 [facility] BODIES 7 [facility] SERUM E E QUANTITAT [facility] ALIREZA GLUC BLD 29227 [facility]UC MNTR 7 [facility] CLEARED PSC FDA SPEC HOME USE HEMOGLOBI 78203 [facility] N 7 [facility] KEN A1C PSC COMPREHEN 40357 [facility] SIVE 7 [facility] METABOLIC E E PANEL [facility] GASES 90751 [facility] BLOOD PH 7 [facility] HEALTH[facility] DIRECT E E LISETTE XCPT [facility] [place] [address] [facility] LACTATE 7 [facility] E E [facility] GROUND A0425 [facility] MILEAGE 7 AMBULANCE AMBULANCE PER SERVICE SERVICE STATUTE MILE AMB A0427 [facility] SERVICE 7 AMBULANCE AMBULANCE ALS SERVICE SERVICE EMERGENCY TRANSPORT LEVEL 1 RADIOLOGI 91904 YARELI GAMBLEHERIBERTO Adams 7 MEDICAL EXAMINATI IMAGING [place] [address] YARELI HEREDIA HEAD/BRAI 7 MEDICAL N W/O IMAGING CONTRAST ASS [facility] [address] HEART MANAGEMEN T > 30 MIN GROUND A0425 [facility] AMBULANCE AMBULANCE PER SERVICE SERVICE STATUTE MILE SBSQ [address]277 [place] [address] PHYSICIAN CARE/DAY S GROUP 25 MINUTES AMB A0426 [facility] SERVICE 7 AMBULANCE AMBULANCE ALS SERVICE SERVICE NONEMERGE NCY TRANSPORT LEVEL 1 PRQ [address] [facility] TRLUML 7 PHYSICIAN CORONARY S GROUP STENT W/ANGIO ONE ART/BRNCH INITIAL [address]/[facility] HEART 50 MINUTES CATH PLMT 39900 [facility] L HRT & 7 PHYSICIAN PHYSICIAN ARTS S GROUP S GROUP W/NJX & ANGIO IMG S&I SLCTV 98810 [facility] CATH 7 PHYSICIAN 1STORD S GROUP W/WO ART PUNCT/FLU OR/S&I ELLY SBSQ 59334 [place] [address] PHYSICIAN CARE/DAY S GROUP 15 MINUTES SLCTV 94044 [facility] CATH 7 PHYSICIAN SUBCLAVIA S GROUP N ART ANGIO VERTEBRAL ARTERY FLUORO [id number] [facility] MULTI 7 [facility] CORONARY INC INC ARTERIES LOW OSMOLAR CONT FLUORO LT [id number] [facility] 7 [facility] SUBCLAVIA INC INC N ARTERY LOW OSMOLAR CONTRAST FLUOROSCO [id number] [facility] PY LEFT 7 [facility] HEART LOW INC INC OSMOLAR CONTRAST FLUORO [id number] R[facility] BILATERAL 7 [facility] RENAL INC INC ART LOW OSMOLAR CONTRST MEASUREME [id number] [facility] NT 7 [facility] H[facility] CARDIAC INC INC 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 LT HEART PERQ PULMONARY 14924 YARELI EMANUEL 7 MEDICAL VENTILATI IMAGING ON & ASS PERFUSION IMAGING DUPLEX 74796 YARELI PERRYUTCHER SCAN 7 MEDICAL EXTRACRAN IMAGING IAL ART ASS COMPL BI STUDY GROUND A0425 [facility] MILEAGE 7 AMBULANCE AMBULANCE PER SERVICE SERVICE STATUTE MILE AMB A0427 [facility] SERVICE 7 AMBULANCE AMBULANCE ALS SERVICE SERVICE EMERGENCY TRANSPORT LEVEL 1 INITIAL 13753 [facility] 7 PHYSICIAN A CARE/DAY S GROUP 70 MINUTES RADIOLOGI 09398 YARELI EMANUEL C EXAM 7 MEDICAL CHEST 2 IMAGING VIEWS ASS FRONTAL&L ATERAL LANCETS A4259 NAKUL NAKUL PER BOX 7 HOME HOME OF 100 MEDICAL MEDICAL EQUIPME EQUIPME BLD GLU A4253 NAKUL HUERTASRELL TEST/REAG 7 HOME HOME T STR[facility] MEDICAL MEDICAL HOME BLD EQUIPME EQUIPME GLU MON-50 [place]/CU [address] ALEXIA HALE TTING 7 BENIGN HYPERKERA TOTIC LESION 1 DEBRIDEME 95192 ALEXIA HALE NT NAIL 7 ANY METHOD 6/> NONEMERG A0120 FEDERATED FEDERATED TRNSPRT: 7 MINI-BUS TRANSPORT TRANSPORT MTN ATION SER ATION SER AREA/OTH SYS NONEMERG A0120 FEDERATED FEDERATED TRNSPRT: 6 MINI-BUS TRANSPORT TRANSPORT MTN ATION SER ATION SER AREA/OTH SYS OPHTH 64106 [facility] 6 EYE XM&EVAL INSTITUTE INTERMEDI ATE ESTAB PT NONEMERG A0120 FEDERATED FEDERATED TRNSPRT: 6 MINI-BUS TRANSPORT TRANSPORT MTN ATION SER ATION SER AREA/OTH SYS NONEMERG A0120 FEDERATED FEDERATED TRNSPRT: 6 MINI-BUS TRANSPORT TRANSPORT MTN ATION SER ATION SER AREA/OTH SYS [place]/CU 47[address] ALEXIA HALE TTING 6 BENIGN HYPERKERA TOTIC LESION 2-4 DEBRIDEME 83984 ALEXIA HALE NT NAIL 6 ANY METHOD 6/> RADIOLOGI 49820 EXPRESS SHASHY C 6 MOBILE ANN EXAMINATI DIAGNOSTI ON FEMUR C SE MINIMUM 2 VIEWS DEBRIDEME 31818 ALEXIA HALE NT NAIL 6 JAM JAM ANY METHOD 6/> RADIOLOGI 59658 EXPRESS EXPRESS C EXAM 6 MOBILE MOBILE CHEST 2 DIAGNOSTI DIAGNOSTI VIEWS C SE C SE FRONTAL&L ATERAL NONEMERG A0120 FEDERATED FEDERATED TRNSPRT: 6 MINI-BUS TRANSPORT TRANSPORT MTN ATION SER ATION SER AREA/OTH SYS DEBRIDEME 36117 ALEXIA HALE NT NAIL 6 JAM JAM ANY METHOD 6/> NONEMERG A0120 FEDERATED FEDERATED TRNSPRT: 6 MINI-BUS TRANSPORT TRANSPORT MTN ATION SER ATION SER AREA/OTH SYS DIAB ONLY A5500 [facility] FIT CSTM 6 MEDICAL MEDICAL PREP&SPL SUPPLY SUPPLY [employer] DNSITY INSRT FOR DIAB A5512 [place] [place] ONLY MX 6 MEDICAL MEDICAL DNSITY SUPPLY SUPPLY [employer] FORMD PRFAB EA NONEMERG A0120 FEDERATED FEDERATED TRNSPRT: 6 MINI-BUS TRANSPORT TRANSPORT MTN ATION SER ATION SER AREA/OTH SYS OPHTH 56040 SCIFRES SCIFRES MEDICAL 6 ANG ANG XM&EVAL COMPRHNSV ESTAB PT 1/> NONEMERG A0120 FEDERATED FEDERATED TRNSPRT: 5 MINI-BUS TRANSPORT TRANSPORT MTN ATION SER ATION SER AREA/OTH SYS NONEMERG A0120 FEDERATED FEDERATED TRNSPRT: 5 MINI-BUS TRANSPORT TRANSPORT MTN ATION SER ATION SER AREA/OTH SYS NONEMERG A0120 FEDERATED FEDERATED TRNSPRT: 5 MINI-BUS TRANSPORT TRANSPORT MTN ATION SER ATION SER AREA/OTH SYS BLD GLU A4253 NAKUL NAKUL TEST/REAG 5 HOME HOME T [facility] HOME BLD EQUIPME EQUIPME GLU MON-[facility] A4259 NAKUL NAKUL PER BOX 5 HOME HOME OF 100 [place] [address] [facility] INFUSION 5 [facility] THERAPY INC INC PROPHYLAX IS/DX EA HOUR NONEMERG A0120 FEDERATED FEDERATED TRNSPRT: 5 MINI-BUS TRANSPORT TRANSPORT MTN ATION [place] AT[place] AREA/[place] [address] [facility] INFUSION 5 [facility] THERAPY/P INC INC ROPHYLAXI S /DX 1ST TO 1 HR XCAPSULAR 44808 [facility] CATARACT 5 KRYSTAL KRYSTAL RMVL [...] ATION SER ATION SER AREA/[place] [address] [facility] ALL ABDOMEN & 5 MEDICAL PELVIS IMAGING W/O ASS CONTRAST MATERIAL CT THORAX 08181 [facility] ALL W/O 5 MEDICAL CONTRAST IMAGING MATERIAL ASS NONEMERG A0120 FEDERATED FEDERATED TRNSPRT: 5 MINI-BUS TRANSPORT TRANSPORT MTN [facility] SYS RADIOLOGI 73566 EXPRESS EXPRESS C EXAM 5 MOBILE MOBILE CHEST 2 DIAGNOSTI DIAGNOSTI VIEWS C SE C SE FRONTAL&L ATERAL BLD GLU A4253 NAKUL NAKUL TEST/REAG 5 HOME HOME T [facility] MEDICAL HOME BLD EQUIPME EQUIPME GLU MON-50 LANCETS A4259 NAKUL NAKUL PER BOX 5 HOME HOME OF 100 MEDICAL MEDICAL EQUIPME EQUIPME NONEMERG A0120 FEDERATED FEDERATED TRNSPRT: 5 MINI-BUS TRANSPORT TRANSPORT MTN ATSTEFFANIE [facility] SYS NONEMERG A0120 FEDERATED FEDERATED TRNSPRT: 5 MINI-BUS TRANSPORT TRANSPORT MTN [facility]OT SYS EXC B9 11279 [facility] WANDER TOD LESION 5 PHYSICIAN MRNATHEN XCP S GROUP SK TG T/A/L 2.1-3.0 CM REPAIR 34512 R[facility] INTERMEDI 5 [facility] H[facility] ATE INC INC S/A/T/E 2.6-7.5 CM NONEMERG A0120 FEDERATED FEDERATED TRNSPRT: 5 MINI-BUS TRANSPORT TRANSPORT MTN [facility]/[place] [address] [facility] GIOVANNA HEAD/BRAI 5 MEDICAL MARTIN N W/O IMAGING CONTRAST ASS MATERIAL NONEMERG A0120 FEDERATED FEDERATED TRNSPRT: 4 TRANS MINI-BUS TRANSPORT SERVBLUEG MTN [facility]/OTH SYS BLD GLU A4253 NAKUL NAKUL TEST/REAG 4 HOME HOME T STRIPS MEDICAL MEDICAL HOME BLD EQUIPME EQUIPME GLU MON-50 LANCETS A4259 NAKUL NAKUL PER BOX 4 HOME HOME OF 100 MEDICAL MEDICAL EQUIPME EQUIPME LANCETS A4259 NAKUL NAKUL PER BOX 4 HOME HOME OF 100 MEDICAL MEDICAL EQUIPME EQUIPME BLD GLU A4253 NAKUL NAKUL TEST/REAG 4 HOME HOME T [facility] MEDICAL HOME BLD EQUIPME EQUIPME GLU MON-50 PARING/CU 06108 ALEXIA HALE TTING 4 JAM JAM BENIGN HYPERKERA TOTIC LESION 1 DEBRIDEME 98239 ALEXIA HALE NT NAIL 4 JAM JAM ANY METHOD 6/> BLD GLU A4253 NAKUL NAKUL TEST/REAG 3 HOME HOME T [facility] MEDICAL HOME BLD EQUIPME EQUIPME GLU MON-50 LANCETS A4259 NAKUL NAKUL PER BOX 3 HOME HOME OF 100 [place] [address] GIOVANNA GIOVANNA ABDOMINAL 3 MARTIN MARTIN [place] TIME W/[place] [address] RICHY RICHY RETROPERI 3 MEM HOS[facility]OS[facility] TONEAL INC INC REAL TIME W/IMAGE COMPLETE NONEMERG A0120 LKLP CAC LKLP CAC TRNSPRT: 3 INC INC MINI-BUS REGION 11 REGION 11 [facility] SY BLD GLU A4253 NAKUL NAKUL TEST/REAG 3 HOME HOME T [facility] MEDICAL MEDICAL HOME BLD EQUIPME EQUIPME GLU MON-50 LANCETS A4259 NAKUL NAKUL PER BOX 3 HOME HOME OF 100 MEDICAL MEDICAL EQUIPME EQUIPME RADIOLOGI 82633 EXPRESS EXPRESS C EXAM 3 MOBILE MOBILE CHEST 2 DIAGNOSTI DIAGNOSTI VIEWS C SE C SE FRONTAL&L [facility] 16634 MCKEMIE MCKEMIE DISCHARGE 3 JR YO JR YO DAY MANAGEMEN T 30 MIN/< [place] [address] GIOVANNA GIOVANNA HEAD/BRAI 3 MARTIN MARTIN N W/O CONTRAST MATERIAL ECG 35372 WEHRMAN WEHRMAN ROUTINE 3 III YO III YO ECG W/LEAST 12 LDS I&R ONLY RADIOLOGI 41425 EXPRESS EXPRESS C EXAM 3 MOBILE MOBILE CHEST 2 DIAGNOSTI DIAGNOSTI VIEWS C SE C SE FRONTAL&L ATERAL BLD GLU A4253 NAKUL NAKUL TEST/REAG 3 HOME HOME T STRIPS MEDICAL MEDICAL HOME BLD EQUIPME EQUIPME GLU MON-50 NONEMERG A0120 LKLP LKLP TRNSPRT: 2 [facility] ACTION ACTION MTN AREA/OTH SYS MRA NECK 64102 GIOVANNA PERRYUTCHER W/O 2 MARTIN MARTIN CONTRST MATERIAL MRI BRAIN 61583 RICHY LOCKHART BRAIN 2 [facility] STEM W/O INC INC CONTRAST MATERIAL NONEMERG A0120 LKLP LKLP TRNSPRT: 2 [facility] ACTION ACTION MTN AREA/OTH SYS NONEMERG A0120 LKLP LK TRNSPRT: 2 [facility] ACTION ACTION MTN AREA/OTH SYS MRI BRAIN 18457 YARELI HEREDIA BRAIN 2 MEDICAL MARTIN STEM W/O IMAGING CONTRAST ASS MATERIAL MRA HEAD 00876 YARELI PERRYUTCHER W/O 2 MEDICAL MARTIN CONTRST IMAGING MATERIAL ASS NONEMERG A0120 LKLP LK TRNSPRT: 2 [facility] ACTION ACTION MTN AREA/OTH SYS LIPID 00309 COMBINED COMBINED PANEL 2 PHYSICIAN PHYSICIAN S LA S LA HEMOGLOBI 66998 COMBINED COMBINED N 2 PHYSICIAN PHYSICIAN GLYCOSYLA S LA S LA KEN A1C BLOOD 59954 COMBINED COMBINED COUNT 2 PHYSICIAN PHYSICIAN COMPLETE S LA S LA AUTO&AUTO DIFRNTL WBC COMPREHEN 20374 COMBINED COMBINED SIVE 2 PHYSICIAN PHYSICIAN METABOLIC S LA S LA PANEL RADIOLOGI 83696 WALTER VIKY C 2 MEDICAL FRA EXAMINATI SERV ON KNEE FOUNDATIO 1/2 VIEWS MRI BRAIN 00889 WALTER ENCARNACION BRAIN 0 MEDICAL , JUAN JOSÉ STEM W/O SERV CONTRAST FOUNDATIO MATERIAL BLOOD 08989 [facility] COUNT 0 Y Y COMPLETE [facility] AUTOMATED CYANOCOBA 61555 [facility] LEATHA 0 Y Y VITAMIN [facility] B-12 [place] [address] [facility] THYROID 0 Y Y STIMULATI [facility] NG HORMONE TSH COLLECTIO 88450 [facility] N VENOUS 0 Y Y BLOOD [facility] VENIPUNCT URE RADEX 54840 [facility] SPINE 0 Y Y LUMBOSACR [facility] AL 2/3 VIEWS COMPREHEN 14886 [facility] Y Y METABOLIC [facility] PANEL Encounters Encounter Start End Date Code Location Performer Type Date EMERGENCY 12449 7 7 [facility] HIGH/URGE NT SEVERITY OFFICE 70230 [facility] OUTPATIEN 7 7 [facility] 30 CLINIC MINUTES [facility] - 7 7 [facility] OUTPATI[facility] E T [facility]OSPITALS EMERGENCY 03590 [facility] DEPT 7 7 PHYSICIAN VISIT S, [facility] HIGH SEVERITY& THREAT [facility] - 7 7 [facility]IENT [facility] EMERGENCY 26601 MIKEY ANTONIO DEPT 7 7 PHYSICIAN U VISIT S, [facility] HIGH SEVERITY& [facility] 6[facility] YARELI BOLTON OUTPATIEN 7 7 [facility] 15 MINUTES OFFICE 82546 ID FLEX YA OUTPATIEN 6 6 MEDICAL T VISIT SERV 25 FOUNDATIO MINUTES [facility]OSP[facility] - 5 5 [facility] T OFFICE [id number] R[facility]Y PHILLIPS OUTPATIEN 5 5 [facility] 20 HOSPITAL MINUTES [facility] - 5 5 [facility] OUT[facility]IEN INC T OFFICE 83823 [facility] OUTPATIEN 5 5 [facility] T VISIT INC 10 MINUTES [facility]OSP[facility] 5 5 [facility] T OFFICE 38477 R[facility]Y NEVIN OUTPATIEN 5 5 [facility] 30 HOSPITAL MINUTES [facility] - 5 5 [facility] OUTPATIEN INC T EMERGENCY 40058 RICHY HOLT 5 5 [facility] T VISIT P MODERATE SEVERITY HOSPITAL [facility] - 3 3 [facility] OUTPATIEN INC T OFFICE [id number] GIVEN CUR GIVEN CUR OUTPATIEN 2 2 T NEW 30 MINUTES [facility] R[facility] - 2 2 [facility] T OFFICE 28816 [facility] 0 [facility] T VISIT MEDICINE 15 P MINUTES OFFICE 07825 [facility] T V[facility] SERV 15 FOUNDATIO [facility] UNIVERSIT - 0 0 Y [facility] UNIVERSIT - 0 0 Y [facility] T OFFICE 36563 MÓNICA PEREZ 0 0 [facility] T VISIT SERV 15 FOUNDATIO MINUTES OFFICE 07690 MÓNICA PEREZ 9 9 [facility] T NEW 45 SERV MINUTES FOUNDATIO
--- OUTSIDE RECORDS SUMMARY | 2016-12-24 07:53 | External Medical Summary Rpt ---
Author Author , LINDSAY Organization LINDSAY Address Unknown Phone [email or web address] Team Providers Care Principal Process Engineer Name Role Phone PHILLIPS LUZ, PHILLIPS Unavailable [...] Unavailable [facility] Unavailable Unavailable SERVICE, [facility] Unavailable Unavailable SERVICE, [facility] Un[facility] Unavailable [facility], [facility] Unavailable Unavailable [facility], [facility] [place] GIOVANNA, GIOVANNA Unavailable Unavailable GIOVANNA MARTIN, Unavailable Unavailable GIOVANNA MARTIN GIOVANNA MARTIN, Unavailable Unavailable GIOVNANA MARTIN [facility], Unavailable Unavailable [...] JOSÉ ENCARNACION, Unavailable Unavailable JUAN JOSÉ ENCARNACION [facility] Unavailable Unavailable INC, [facility] Unavailable Unavailable HOSPITAL P, [facility], Unavailable Unavailable [facility] OTIS BERG Unavailable Unavailable ALEC MCMULLEN Unavailable Unavailable ILDA, ILDA Unavailable Unavailable [facility], [facility] Un[facility] Un[facility], [facility] Un[facility], [facility], [facility] Unavailable Unavailable 11, [facility] 11 [facility] Unavailable Unavailable ACTION, [facility] SIGRID MONTENEGRO YO, Unavailable Unavailable MCKEMIE JR YO [facility] Unavailable Unavailable [facility], [facility], Unavailable Unavailable [facility], Unavailable Unavailable PLL[facility], [facility] [...] [facility]available [facility]available [facility]OSPITALS, [facility], Unavailable Unavailable [facility] MCCORD BHAKTI, MCCORD BHAKTI Unavailable Unavailable WEHRMAN III YO, Unavailable Unavailable WEHRMAN III YO Purpose Continuity of Care Document - 12-26-2008 through 2016 Problems Code Diagnosis DOS Provider Status E1165 TYPE 2 10-24-2016 [facility] [place] HYPERGLYCEM [place] E785 HYPERLIPIDE 10-24-2016 [facility] UNSPECIFIED HOSPITALS I10 ESSENTIAL 10-24-2016 [facility] PRIMARY DE SOTO HYPERTENSIO CLINIC [facility] N I129 HYPERTENSIV 10-24-2016 [facility] E CKD HEALTHCARE W/STAGE 1-4 HOSPITALS CKD OR UNS CKD N189 CHRONIC 10-24-2016 [facility] UNSPECIFIED Z8673 PERSONAL HX 10-24-2016 [facility] CEREB HOSPITALS INFARCT NO RESID DEFICIT E118 TYPE 2 09-24-2016 [facility], MELLITUS PLLC W/UNS COMPLICATIO NS I2510 ASHD [place] POSTA 09-24-2016 [facility] CORONARY [facility], 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 N289 DISORDER OF 09-24-2016 [facility], URETER PLLC UNSPECIFIED R4182 ALTERED 09-24-2016 [facility], STATUS [facility] UNSPECIFIED R5383 OTHER 09-24-2016 [facility] I4891 UNSPECIFIED 09-22-2016 [facility] ATRIAL HEART FIBRILLATIO N R748 ABNORMAL 09-22-2016 [facility] LEVELS OF HEART OTHER SERUM ENZYMES I214 NON-ST 09-21-2016 [facility] MYOCARDIAL GROUP INFARCTION B21544 ASHD [place] POSTA 09-21-2016 [facility] COR ART PHYSICIANS W/UNSTABLE GROUP ANGINA PECTORIS I495 SICK SINUS 09-21-2016 [facility] SYNDROME PHYSICIANS GROUP N183 CHRONIC 09-21-2016 [facility] KIDNEY PHYSICIANS DISEASE GROUP STAGE 3 MODERATE Y75664 HEMIPLEGIA 09-20-2016 [facility] FLW PHYSICIANS CEREBRAL GROUP INFARCT AFFCT UNS SIDE 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 [facility] OSIS OF PHYSICIANS RENAL GROUP ARTERY N88429 ENCOUNTER 09-20-2016 [facility] FOR OTHER PHYSICIANS PREPROCEDUR GROUP AL EXAMINATION E1122 TYPE 2 09-19-2016 [facility] DIABETES [facility] MELLITUS INC W/DIAB CHRON KIDNEY DZ 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[facility] 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 S70265 HEMIPLEGIA 09-19-2016 [facility] FLW [facility] CEREBRAL INC INFARCT AFF RT DOM SIDE N390 URINARY 09-19-2016 [facility] TRACT [facility] INFECTION INC SITE NOT SPECIFIED R0602 SHORTNESS 09-19-2016 [facility] OF BREATH PHYSICIANS, [facility] R079 CHEST PAIN 09-19-2016 [facility] UNSPECIFIED AMBULANCE SERVICE R7989 OTHER SPEC 09-19-2016 [facility] ABNORMAL [facility]ICAL FINDINGS [facility]ING ASS BLOOD CHEMISTRY E119 TYPE 2 09-15-2016 N[facility] DIABETES HOME MELLITUS MEDICAL WITHOUT EQUIPME COMPLICATIO NS B351 TINEA 09-07-2016 B[facility]IS UNGUIUM E1151 TYPE 2 DM 09-07-2016 [facility] W/DIAB 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 S51960 PAIN IN 09-07-2016 [facility] RIGHT TOES E20148 PAIN IN 09-07-2016 [facility] LEFT TOES R600 LOCALIZED 09-07-2016 [facility] EDEMA H1789 OTHER 07-11-2016 [facility] OPACITIES R69 ILLNESS 07-11-2016 [facility] UNSPECIFIED TRANSPORTAT ION SER P3020TY FOREIGN 05-27-2016 [facility] BODY IN EYE CORNEA UNS INSTITUTE EYE INITIAL ENCOUNTER Z961 PRESENCE OF 05-27-2016 [facility] INTRA[facility]ULAR [facility] LENS X15588 PAIN IN 01-22-2016 EXPRESS LEFT THIGH MOBILE DIAGNOSTIC SE R7611 NONSPECIFIC 12-30-2015 EXPRESS RXN MOBILE TUBERCULIN DIAGNOSTIC SKIN TEST SE W/O ACT TB N250 RENAL 10-05-2015 [place] [facility] OSTEODYSTRO SERV PHY FOUNDATION Z794 NURSING HOME 10-05-2015 [place] MEDICAL CURRENT USE SERV OF INSULIN [facility] H2513 AGE-RELATED 07-03-2015 SCIFRES ANG NUCLEAR CATARACT BILATERAL D25980 PUPILLARY 04-28-2015 [facility] ABNORMALITY [facility] LEFT EYE INC O45962 COMBINED 04-28-2015 CHE FORMS OF 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 LEFT EYE H269 UNSPECIFIED 04-28-2015 [facility] CATARACT [facility] HOS[facility] INC H5703 MIOSIS 04-28-2015 CHE KRYSTAL N3941 URGE 04-21-2015 [facility] P 2859 UNSPECIFIED 02-25-2015 [facility] ANEMIA [facility]OS[facility] INC 75335 02-25-2015 [facility] TRANSPORTAT ION SER 2410 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 [facility] UNINODULAR [facility] GOITER [facility] 86038 DIAB W/O 02-17-2015 [facility] COMP TYPE [facility] II/UNS NOT INC STATED UNCNTRL 2558 OTHER 02-17-2015 [place] SPECIFIED MEDICAL DISORDERS IMAGING ASS OF ADRENAL GL[place]S 45429 UNSPEC 02-17-2015 [place] VENTRAL MEDICAL NIMO W/O IMAGING ASS MENTION OBST/GANGRE N 5932 ACQUIRED 02-17-2015 [place] CYST OF MEDICAL KIDNEY IMAGING ASS 31821 NONSPEC 12-25-2014 EXPRESS REACT MOBILE TUBERCULIN DIAGNOSTIC [place] W/[place] [address] OTHER ACUTE 09-19-2014 [facility] PAIN PHYSICIANS GROUP 7062 SEBACEOUS 09-19-2014 [facility] CYST PHYSICIANS GROUP 7820 DISTURBANCE 09-19-2014 [facility] OF SKIN PHYSICIANS SENSATION GROUP V154 PERS HX 09-17-2014 [facility] AL TRAUMA PRS [facility] 4739 UNSPECIFIED 07-04-2014 [facility] SINUSITIS [facility] 7813 LACK OF 07-04-2014 [place] COORDINATIO MEDICAL N IMAGING ASS 78493 DIAB W/O 07-03-2014 [facility] MENTION [facility] COMP TYPE HOSPITAL P II/UNS TYPE UNCNTRL 4019 UNSPECIFIED 07-03-2014 [facility] ESSENTIAL [facility] P N 18727 MUSCLE 07-03-2014 [facility] P D) 74413 OTHER 07-03-2014 [facility] P 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 MARJORIEFRANNY HALINA OSIS OF NAIL 78837 DIAB 06-28-2013 JOHNNYReshma MEADE W/PERIPH CIRC D/O TYPE II/UNS NOT UNCNTRL 7011 ACQUIRED 06-28-2013 ALEXIA MEADE KERATODERMA 7295 PAIN IN 06-28-2013 ALEXIA MEADE SOFT TISSUES OF LIMB 7823 EDEMA 06-28-2013 MARJORIEFRANNY MEADE 5853 CHRONIC 04-15-2013 [facility] DISEASE INC STAGE III (MODERATE) 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 7533 OTHER 04-15-2013 GIOVANNA SPECIFIED MARTIN CONGENITAL ANOMALIES OF KIDNEY 50764 DEHYDRATION 01-03-2013 SIGRID MONTENEGRO YO 2767 HYPERPOTASS 01-03-2013 SIGRID MONTENEGRO EMIA YO 3319 UNSPECIFIED 01-02-2013 GIOVANNA CEREBRAL MARTIN DEGENERATIO N 514 PULMONARY 12-04-2012 EXPRESS CONGESTION [place] [address] SHORTNESS 12-04-2012 [place] [address] UNSPECIFIED 04-30-2012 GIVEN CUR CEREBRAL ARTERY OCCLUSION W/INFARCT 52076 OCCL&STENOS 04-05-2012 GIOVANNA MX&BILAT MARTIN PRECERBRL ART W/O INFARCT 12951 UNSPEC 04-04-2012 [facility] CERBRL ART MEDICAL OCCLUSION IMAGING ASS W/O MENTION INFARCT 4370 CEREBRAL 04-04-2012 [place] ATHEROSCLER MEDICAL OSIS IMAGING ASS 4371 OTH 04-04-2012 [place] GENERALIZED MEDICAL ISCHEMIC IMAGING ASS CEREBROVASC ULAR DISEASE V5869 LONG-TERM 01-18-2012 COMBINED (CURRENT) PHYSICIANS USE OF [place] OTHER MEDICATIONS 21736 OSTEOARTHRO 12-16-2011 [place] [facility] SIS UNSPEC SERV WHETHER FOUNDATIO GEN/LOC LOWER LEG 39038 PAIN IN 12-16-2011 [place] [facility] JOINT, SERV LOWER LEG FOUNDAT[facility] 06619 EXOSTOSIS 12-16-2011 [place] [facility] OF SERV UNSPECIFIED FOUNDATIO SITE 36305 MEMORY LOSS 08-21-2009 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 7242 LUMBAGO 07-17-2009 [place] [facility] 96923 ALTERED 07-17-2009 [place] [facility] MENTAL SERV STATUS [facility]OUND[facility] 2724 OTHER AND 12-26-2008 [place] [facility] UNSPECIFIED SERV FOUNDATIO HYPERLIPIDE PAT Medications [...] 90 -2 -2 .0 00 D ti AR 40 4- 3- 00 14 CA ve [...] 90 -2 -0 .0 00 D ti AR 40 7- 2- 00 14 CA ve [...] 90 -3 -0 .0 00 D ti AR 40 1- 5- 00 13 CA ve [...] 90 -0 -0 .0 00 D ti AR 40 3- 7- 00 13 CA ve [...] 90 -0 -1 .0 00 D ti AR 40 3- 0- 00 13 CA ve [...] 90 -0 -1 .0 00 D ti AR 40 5- 0- 00 13 CA ve [...] 90 -0 -0 .0 00 D ti AR 40 7- 9- 00 13 CA ve N 52 20 20 40 RE C 38 16 17 98 50 0 09 PH 0 AR MG MA CY TA BL LL ET C Procedures Procedure DOS Code Location Performer Comment BLOOD 63187 [facility] COUNT 7 [facility] COMPLETE E E AUTOMATED [facility] RADIOLOGI 57265 [facility] C EXAM 7 [facility] CHEST 2 E E VIEWS [facility] FRONTAL&L ATERAL KETONE 85212 [facility] BODIES 7 [facility] SERUM E E QUANTITAT [facility] ALIREZA GLUC BLD 35731 [facility] GLUC MNTR 7 DE SOTO DEV CLINIC CLEARED PSC FDA SPEC HOME USE HEMOGLOBI 53790 [facility] N 7 DE SOTO GLYCOSYLA CLINIC KEN A1C PSC COMPREHEN 67827 [facility] SIVE 7 [facility]ALTH[facility] METABOLIC E E PANEL [facility] GASES 72779 [facility] BLOOD PH 7 [facility]ALTH[facility] HEALTHCAR DIRECT E E LISETTE XCPT [facility] [address] [facility] LACTATE 7 [facility] E [facility] GROUND A0425 [facility] MILEAGE 7 AMBULANCE AMBULANCE PER SERVICE SERVICE STATUTE MILE AMB A0427 [facility] SERVICE 7 AMBULANCE AMBULANCE ALS SERVICE SERVICE EMERGENCY TRANSPORT LEVEL 1 RADIOLOGI 29822 YARELI GAMBLEHERIBERTO Adams 7 MEDICAL EXAMINATI IMAGING [place] [address] YARELI HEREDIA HEAD/BRAI 7 MEDICAL N W/O IMAGING CONTRAST ASS [facility] [address] HEART MANAGEMEN T > 30 MIN GROUND A0425 [facility] AM[facility]ULANCE AMBULANCE PER SERVICE SERVICE STATUTE MILE SBSQ [address]704 [place] [address] PHYSICIAN CARE/DAY S GROUP 25 MINUTES AMB A0426 [facility] SERVICE 7 AMBULANCE AMBULANCE ALS SERVICE SERVICE NONEMERGE NCY TRANSPORT LEVEL 1 PRQ 70714 [facility] TRLUML 7 PHYSICIAN CORONARY S GROUP STENT W/ANGIO ONE ART/BRNCH INITIAL [address]/[facility] HEART 50 MINUTES CATH PLMT 85805 [facility] L HRT & 7 PHYSICIAN PHYSICIAN ARTS S GROUP S GROUP W/NJX & ANGIO IMG S&I SLCTV 65584 [facility] CATH 7 PHYSICIAN 1STORD S GROUP W/WO ART PUNCT/FLU OR/S&I ELLY SBSQ 80328 [place] [address] PHYSICIAN CARE/DAY S GROUP 15 MINUTES SLCTV 72817 [facility] CATH 7 PHYSICIAN SUBCLAVIA S GROUP N ART ANGIO VERTEBRAL ARTERY FLUORO [id number] RICHY LOCKHART MULTI 7 [facility] CORONARY INC INC ARTERIES LOW OSMOLAR CONT FLUORO LT [id number] RICHY LOCKHART 7 [facility] SUBCLAVIA INC INC N ARTERY LOW OSMOLAR CONTRAST FLUOROSCO [id number] RICHY LOCKHART PY LEFT 7 [facility] HEART LOW INC INC OSMOLAR CONTRAST FLUORO [id number] RICHY LOCKHART BILATERAL 7 [facility] H[facility] RENAL INC INC ART LOW OSMOLAR CONTRST MEASUREME [id number] RICHY LOCKHART NT 7 [facility] HOS[facility] CARDIAC INC INC 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 LT HEART PERQ PULMONARY 97643 YARELI EMANUEL 7 MEDICAL VENTILATI IMAGING ON & ASS PERFUSION IMAGING DUPLEX 56467 YARELI PERRYUTCHER SCAN 7 MEDICAL EXTRACRAN IMAGING IAL ART ASS COMPL BI STUDY GROUND A0425 [facility] MILEAGE 7 AMBULANCE AMBULANCE PER SERVICE SERVICE STATUTE MILE AMB A0427 [facility] SERVICE 7 AMBULANCE AMBULANCE ALS SERVICE SERVICE EMERGENCY TRANSPORT LEVEL 1 INITIAL 16241 [facility] 7 PHYSICIAN A CARE/DAY S GROUP 70 MINUTES RADIOLOGI 59122 YARELI EMANUEL C EXAM 7 MEDICAL CHEST 2 IMAGING VIEWS ASS FRONTAL&L ATERAL LANCETS A4259 NAKUL NAKUL PER BOX 7 HOME HOME OF 100 MEDICAL MEDICAL EQUIPME EQUIPME BLD GLU A4253 NAKUL HUERTASRELL TEST/REAG 7 HOME HOME T STRIPS MEDICAL MEDICAL HOME BLD EQUIPME EQUIPME GLU MON-50 [place]/CU [address] ALEXIA HALE TTING 7 BENIGN HYPERKERA TOTIC LESION 1 DEBRIDEME 01599 ALEXIA AHLE NT NAIL 7 ANY METHOD 6/> NONEMERG A0120 [facility]ER[facility] FEDERATED TRNSPRT: 7 [facility] TRANSPORT TRANSPORT MTN ATION SER ATION SER AREA/OTH SYS NONEMERG A0120 FEDERATED FEDERATED TRNSPRT: 6 [facility] TRANSPORT TRANSPORT MTN ATION SER ATION SER AREA/OTH SYS OPHTH 01686 [facility] 6 EYE XM&EVAL INSTITUTE INTERMEDI ATE ESTAB PT NONEMERG A0120 FEDERATED FEDERATED TRNSPRT: 6 [facility] TRANSPORT TRANSPORT MTN ATION SER ATION SER AREA/OTH SYS NONEMERG A0120 FEDERATED FEDERATED TRNSPRT: 6 [facility] TRANSPORT TRANSPORT MTN ATION SER ATION SER AREA/OTH SYS PARING/CU 79128 ALEXIA HALE TTING 6 BENIGN HYPERKERA TOTIC LESION 2-4 DEBRIDEME 71921 ALEXIA HALE NT NAIL 6 ANY METHOD 6/> RADIOLOGI 97585 EXPRESS SHASHY C 6 MOBILE ANN EXAMINATI DIAGNOSTI ON FEMUR C SE MINIMUM 2 VIEWS DEBRIDEME 94406 ALEXIA HALE NT NAIL 6 JAM JAM ANY METHOD 6/> RADIOLOGI 08290 EXPRESS EXPRESS C EXAM 6 MOBILE MOBILE CHEST 2 DIAGNOSTI DIAGNOSTI VIEWS C SE C SE FRONTAL&L ATERAL NONEMERG A0120 FEDERATED FEDERATED TRNSPRT: 6 [facility] TRANSPORT TRANSPORT MTN ATION SER ATION SER AREA/OTH SYS DEBRIDEME 09952 ALEXIA HALE NT NAIL 6 JAM JAM [...] ATION SER ATION SER AREA/OTH SYS OPHTH 99746 SCIFRES SCIFRES MEDICAL 6 ANG ANG XM&EVAL [...] MEDICAL HOME BLD EQUIPME EQUIPME GLU MON-50 [facility] A4259 NAKUL NAKUL PER BOX 5 HOME HOME OF 100 [place] [address] RICHY LOCKHART INFUSION 5 [facility] THERAPY INC INC PROPHYLAX IS/DX EA HOUR NONEMERG A0120 FEDERATED FEDERATED TRNSPRT: 5 [facility] TRANSPORT TRANSPORT MTN ATION [place] AT[place] SER AREA/[place] [address] RICHY LOCKHART INFUSION 5 [facility] THERAPY/P INC INC ROPHYLAXI S /DX 1ST TO 1 HR XCAPSULAR 23662 [facility] CATARACT 5 KRYSTAL KRYSTAL RMVL [...] ATION SER ATION SER AREA/[place] [address] [facility] ALL ABDOMEN & 5 MEDICAL PELVIS IMAGING W/O ASS CONTRAST MATERIAL CT THORAX 74732 [facility] ALL W/O 5 MEDICAL CONTRAST IMAGING MATERIAL ASS NONEMERG A0120 FEDERATED FEDERATED TRNSPRT: 5 MINI-BUS TRANSPORT TRANSPORT MTN [facility] S[facility] RADIOLOGI 73040 EXPRESS EXPRESS C EXAM 5 MOBILE MOBILE [...] ATSTEFFANIE [facility] SYS NONEMERG A0120 FEDERATED FEDERATED TRNSPRT: 5 MINI-BUS TRANSPORT TRANSPORT MTN [facility] SYS EXC B9 14092 [facility] WANDER TOD LESION 5 PHYSICIAN MRNATHEN XCP S GROUP SK TG T/A/L 2.1-3.0 CM REPAIR 81504 RICHY LOCKHART INTERMEDI 5 [facility] ATE INC INC S/A/T/E 2.6-7.5 CM NONEMERG A0120 FEDERATED FEDERATED TRNSPRT: 5 [facility] TRANSPORT TRANSPORT MTN [facility] [address] [facility] HEAD/BRAI 5 MEDICAL MARTIN N W/O IMAGING CONTRAST ASS MATERIAL NONEMERG A0120 FEDERATED FEDERATED TRNSPRT: 4 TRANS MINI-BUS TRANSPORT SERVBLUEG MTN [facility]/OTH SYS BLD GLU A4253 NAKUL NAKUL [...] HOME BLD EQUIPME EQUIPME GLU MON-50 PARING/CU [address] ALEXIA HALE TTING 4 JAM JAM BENIGN HYPERKERA TOTIC LESION 1 DEBRIDEME 92426 ALEXIA HALE NT NAIL 4 JAM JAM ANY METHOD 6/> BLD GLU A4253 NAKUL NAKUL TEST/REAG 3 HOME HOME T STRIPS MEDICAL MEDICAL HOME BLD EQUIPME EQUIPME GLU MON-50 LANCETS A4259 NAKUL NAKUL PER BOX 3 HOME HOME OF 100 [place] [address] GIOVANNA GIOVANNA ABDOMINAL 3 MARTIN MARTIN REAL TIME W/[place] [address] RICHY RICHY RETROPERI 3 [facility] TONEAL INC INC REAL TIME W/IMAGE COMPLETE NONEMERG A0120 LKLP CAC LKLP CAC TRNSPRT: 3 INC INC MINI-BUS REGION 11 REGION 11 [facility] SY BLD GLU A4253 NAKUL NAKUL TEST/REAG 3 HOME HOME T STRIPS MEDICAL MEDICAL HOME BLD EQUIPME EQUIPME GLU MON-50 LANCETS A4259 NAKUL NAKUL PER BOX 3 HOME HOME OF 100 MEDICAL MEDICAL EQUIPME EQUIPME RADIOLOGI 39143 EXPRESS EXPRESS C EXAM 3 MOBILE MOBILE CHEST 2 DIAGNOSTI DIAGNOSTI VIEWS C SE C SE FRONTAL&L [facility] 32658 MCKEMIE MCKEMIE DISCHARGE 3 JR YO JR YO DAY MANAGEMEN T 30 MIN/< [place] [address] GIOVANNA GIOVANNA HEAD/BRAI 3 MARTIN MARTIN N W/O CONTRAST MATERIAL ECG 33317 WEHRMAN WEHRMAN ROUTINE 3 III YO III YO ECG W/LEAST 12 LDS I&R ONLY RADIOLOGI 36885 EXPRESS EXPRESS C EXAM 3 MOBILE MOBILE CHEST 2 DIAGNOSTI DIAGNOSTI VIEWS C SE C SE FRONTAL&L ATERAL BLD GLU A4253 NAKUL NAKUL TEST/REAG 3 HOME HOME T STRIPS MEDICAL MEDICAL HOME BLD EQUIPME EQUIPME GLU MON-50 NONEMERG A0120 LKLP LKLP TRNSPRT: 2 [facility] MINI-BUS ACTION ACTION MTN AREA/OTH SYS MRA NECK 93723 GIOVANNA PERRYUTCHER W/O 2 MARTIN MARTIN CONTRST MATERIAL MRI BRAIN 37764 RICHY LOCKHART BRAIN 2 [facility] STEM W/O INC INC CONTRAST MATERIAL NONEMERG A0120 LKLP LKLP TRNSPRT: 2 [facility] MINI-BUS ACTION ACTION MTN AREA/OTH SYS NONEMERG A0120 LKLP LK TRNSPRT: 2 [facility] MINI-BUS ACTION ACTION MTN AREA/OTH SYS MRI BRAIN 72881 YARELI HEREDIA BRAIN 2 MEDICAL MARTIN STEM W/O IMAGING CONTRAST ASS MATERIAL MRA HEAD 28555 YARELI PERRYUTCHER W/O 2 MEDICAL MARTIN CONTRST IMAGING MATERIAL ASS NONEMERG A0120 LKLP LK TRNSPRT: 2 [facility] MINI-BUS ACTION ACTION MTN AREA/OTH SYS LIPID 83912 COMBINED COMBINED PANEL 2 PHYSICIAN PHYSICIAN S LA S LA HEMOGLOBI 29220 COMBINED COMBINED N 2 PHYSICIAN PHYSICIAN GLYCOSYLA S LA S LA KEN A1C BLOOD 34735 COMBINED COMBINED COUNT 2 PHYSICIAN PHYSICIAN COMPLETE S LA S LA AUTO&AUTO DIFRNTL WBC COMPREHEN 18630 COMBINED COMBINED SIVE 2 PHYSICIAN PHYSICIAN METABOLIC S LA S LA PANEL RADIOLOGI 86727 WALTER VIKY C 2 MEDICAL FRA EXAMINATI SERV ON KNEE FOUNDATIO 1/2 VIEWS MRI BRAIN 11668 WALTER ENCARNACION BRAIN 0 MEDICAL , JUAN JOSÉ STEM W/O SERV CONTRAST FOUNDATIO MATERIAL BLOOD 48112 [facility] COUNT 0 Y Y COMPLETE [facility] AUTOMATED CYANOCOBA 62251 [facility] LEATHA 0 Y Y VITAMIN [facility] B-12 [place] [address] [facility] THYROID 0 Y Y STIMULATI [facility] NG HORMONE TSH COLLECTIO 96484 [facility] N VENOUS 0 Y Y BLOOD [facility] VENIPUNCT URE RADEX 88921 [facility] SPINE 0 Y Y LUMBOSACR [facility] AL 2/3 VIEWS COMPREHEN 55226 [facility] METABOLIC [facility] PANEL Encounters Encounter Start End Date Code Location Performer Type Date EMERGENCY 33525 7 7 [facility]ALTHCAR DEPARTMEN E T VISIT HOSPITALS HIGH/URGE NT SEVERITY OFFICE 78377 [facility] OUTPATIEN 7 7 [facility] 30 CLINIC MINUTES [facility] - 7 7 HEALTHCAR OUTPATIEN E T HOSPITALS EMERGENCY 63954 MIKEY HOLT DEPT 7 7 PHYSICIAN VISIT S, [facility] HIGH SEVERITY& THREAT ON LICENSE OF [facility] RICHY - 7 7 [facility] INPATIENT INC EMERGENCY 09040 MIKEY ANTONIO DEPT 7 7 PHYSICIAN U VISIT S, [facility] HIGH SEVERITY& THREAT [facility] 67588 YARELI BOLTON OUTPATIEN 7 7 [facility] 15 MINUTES OFFICE [id number] [place] FLEX YA OUTPATIEN 6 6 MEDICAL T VISIT SERV 25 FOUNDATIO MINUTES [facility] - 5 5 [facility] T OFFICE [id number] RICHY PHILLIPS OUTPATIEN 5 5 [facility] 20 HOSPITAL MINUTES [facility] - 5 5 [facility] INC T OFFICE [id number] [facility] OUTPATIEN 5 5 [facility] T VISIT INC 10 MINUTES [facility] - 5 5 [facility] T OFFICE 42200 R[facility]Y NEVIN OUTPATIEN 5 5 [facility] 30 HOSPITAL MINUTES [facility]OSP[facility] - 5 5 [facility] OUTPATIEN INC T EMERGENCY 82140 RICHY HOLT 5 5 [facility] T VISIT P MODERATE SEVERITY [facility]PITAL [facility] - 3 3 [facility] OUTPATIEN INC T OFFICE [id number] GIVEN CUR GIVEN CUR OUTPATIEN 2 2 T NEW 30 MINUTES [facility] RICHY - 2 2 [facility] T OFFICE 00234 [facility]PH BEREA 0 0 [facility] T VISIT MEDICINE 15 P MINUTES OFFICE [id number] [facility] [place] [facility] T VISIT SERV 15 [facility]ATIO [facility] - 0 0 Y [facility] UNIVERSIT - 0 0 Y [facility] T OFFICE 57616 MÓNICA PEREZ 0 0 [facility] [place] A T VISIT SERV 15 FOUNDATIO MINUTES OFFICE [id number] MÓNICA PEREZ 9 9 [facility] [place] [facility] T NEW 45 SERV MINUTES FOUNDATIO
--- OUTSIDE RECORDS SUMMARY | 2016-12-24 07:54 | External Medical Summary Rpt ---
Demographics Preferred Language Chinese Marital Status Unknown Adventism Affiliation Unknown Race Unknown Ethnic Group Unknown Author Author LINDSAY Address Unknown Phone Immunization No patient found.
--- OUTSIDE RECORDS SUMMARY | 2016-12-24 07:54 | External Medical Summary Rpt ---
Demographics Preferred Language Hebrew Marital Status Unknown Gnosticist Affiliation Unknown Race Unknown Ethnic Group Unknown Author Author LNIDSAY Address Unknown Phone Immunization No patient found.
[2016-12-24 08:07] LABS: LYMPH # 2.4 K/mm3 (0.7-4.5); LYMPH % 47.6 % (10-50.0)
--- NOTE | 2016-12-24 08:08 | Emergency Room Report ---
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 N Clinical Suspician of Infection? N Mental Status: 1 - Regular (Normal Baseline) Sepsis Risk:Low Sepsis Risk Have you (or family members/close friends) recently traveled outside the [place]? N If Yes, where/when: Have you had exposure to infectious disease within the past month? N TB? Other? Specify: Source patient, RN notes reviewed Exam Limitations no limitations Comment pT A resident at [facility] and fell this morning injuring her right wrist. Obvious deformity and laceration on ventral surface with hematoma. No LOC. She is a Diabetic, Hypertensive and has CAD Cardiac Chest Pain Chest pain indicative of cardiac No Timing/Duration this morning ALLERGIES Coded Allergies: BANANAS (FOOD) (From BANANAS (FOOD/DRUG)) (01/03/13) Home Medications Active Scripts CLOPIDOGREL BISULFATE (Clopidogrel) 75 MG PO DAILY 30 Days Prov: 09/21/16 Diltiazem Hcl (Cardizem Cd 120MG Cap) 120 MG PO DAILY 30 Days Prov: 09/21/16 Aspirin (Aspirin EC 81MG Tab) 81 MG PO DAILY 30 Days Prov: 09/21/16 Ferrous Sulfate 325 MG PO DAILY 30 Days Prov: 09/21/16 VIT#96/FERROUS FUM/FA ( Tablet) 1 EACH PO DAILY 30 Days Prov: 09/21/16 Sertraline Hcl (Zoloft 50MG) 50 MG PO DAILY 30 Days Prov: 09/21/16 ASCORBIC ACID (Vitamin C) 500 MG PO DAILY 30 Days Prov: 09/21/16 Lisinopril 2.5 MG PO DAILY #30 TAB Prov: 12/07/16 Reported Medications Pioglitazone (Actos 15MG) 15 MG PO DAILY Atorvastatin Calcium (Atorvastatin) 40 MG PO QHS MULTIVITAMIN (Multivitamins) 1 CAP PO DAILY Pantoprazole Sodium (Pantoprazole 40MG) 40 MG PO DAILY NITROGLYCERIN (Nitrostat) 0.4 MG SL [id number] PRN CHEST PAIN Oxybutynin Chloride (Ditropan XL) 10 MG PO DAILY Ins Asp-Prt 70/Asp 30(Nvlogmx) (Novolog Mix 70-30 Flexpen Syrn) 16 UNITS SC BID History Medical History General CAD? No Angina: No [place]: No Hypertension? Yes Hyperlipidemia? Yes CHF? No DVT? No PE? No COPD? No Asthma? No Anemia? No GERD? No Gastric ulcers? No GI Bleed? No Hernia? No Thyroid Problems? No Hypothyroidism? No CVA? Yes Seizures? No Diabetes? Yes Insulin Dependent: No Insulin Pump: No Home FSBS? No Renal Insuffiency? No End Stage Renal Disease? No UTI? No Stones? No BPH? No GB Disease: No Nephritic Syndrome? No Asplenia? No Hepatitis? No Sickle Cell Disease? No Arthritis? Yes Migraines? No Cataracts? No Glaucoma? No MRSA? No HIV? No TB? No Anxiety? No Depression? No Cancer? No Site: N More? 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 Family History Family Hx Diabetes Yes CAD No Hypertension No TB No Social History Smoking Hx Smoker: Current Every Day Smoker Tobacco: Yes Type Cigarettes Packs/day < 1 Pack Alcohol Alcohol: No Review of Systems All Other Systems Reviewed and Negative Constitutional see HPI Cardiovascular see HPI Musculoskeletal see HPI Skin see HPI Physical Exam Vital Signs Vital Signs Date Time Temp Pulse Resp B/P Pulse O2 O2 Flow FiO2 Ox Delivery Rate 12/25 0713 63 18 169/78 97 12/24 0729 98.6 66 18 155/74 96 General Appearance normal appearance, WD/WN, no apparent distress Respiratory Status No: respiratory distress. 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 Yes Paul was queried for this patient? No Reason not queried - emergent pt cond=no time Results/Orders Laboratory Tests 12/24/16 0730: Sodium 138, Potassium 5.0, Chloride 105, Carbon Dioxide 26, BUN 18, Creatinine 1.4 H, Estimated Creat Clear 36 L, Estimated GFR (MDRD) 36 L, Glucose 140 H, Calcium 9.0, Total Bilirubin 0.3, AST 19, ALT 26, Alkaline Phosphatase 80, Total Protein 6.8, Albumin 2.5 L, Globulin 4.3 H, Albumin/Globulin Ratio 0.6 L, PT 11.2, INR 1.05, WBC 5.1, RBC 3.11 L, Hgb 9.5 L, Hct 29.0 L, MCV 93.4, RDW 14.0, Plt Count 245, MPV 7.1 L, Gran % 42.3, Gran # 2.2, Lymphocytes % 47.6, Monocytes % 4.6, Eosinophils % 4.4, Basophils % 1.1, Lymphocytes # 2.4, Monocytes # 0.2, Eosinophils # 0.2, Basophils # 0.1, PUBS MCHC 33.0, MCH 30.8 Current Medication Orders Sig/Arina Start time Last Medication Dose Route Stop Time Status Admin Sodium Chloride 50 ML .STK-MED ONE 12/24 813 DC IV Cefazolin Sodium 0 .STK-MED ONE 12/25 811 DC .ROUTE Cefazolin Sodium 2 GM ONCE ONE 12/25 799 AC Sodium Chloride 50 ML IV 12/24 828 Sodium Chloride 10 ML PRN PRN 12/25 799 AC IV 12/25 756 Sodium Chloride 10 ML PRN PRN 12/25 799 AC IV 12/25 756 Orders Procedure Date/time Status Decision to admit 12/24 820 Active CHEST-PORTABLE 12/24 804 Active CULTURE, BLOOD 12/24 804 Active IV SALINE LOCK 12/24 800 Active CULTURE, BLOOD 12/24 800 Active PROTHROMBIN TIME 12/24 800 Complete CBC WITH AUTO DIFF 12/24 800 Complete CHEM 12 PROFILE 12/24 800 Complete WRIST-3 VIEWS-RT 12/24 730 Active XRAY/CT/US XRAY/CT/US XRAY wrist XR interpretation by reviewed by me Xray Results compound fracture of distal right radius and ulna with overriding Departure Departure Time of Disposition 08 Disposition Still a Patient Clinical Impression Primary Impression: Open fracture of right wrist Qualifiers: Encounter type: initial encounter Qualified Code: S62.101B - Fracture of unspecified carpal bone, right wrist, initial encounter for open fracture Secondary Impressions: CAD (coronary artery disease) Qualifiers: Coronary Disease-Associated Artery/Lesion type: unspecified vessel or lesion type [place] vs. transplanted heart: [place] heart Associated angina: without angina Qualified Code: I25.10 - Atherosclerotic heart disease of [place] coronary artery without angina pectoris Diabetes mellitus, insulin dependent (IDDM), controlled Condition STABLE Referrals BELKYS SALGADO, CAMELIA TYSON Patient Instructions DI for Wrist Fracture Additional Instructions Pt will be seen in the ED by Dr. Vazquez and pt will be kept NPO. Given Ancef 2 gms IV in the ED and got Morphine for pain by EMS on way to hospital. Spoke with Dr. Vazquez and Dr. Whelan...Pt being admitted by Dr. Whelan and will be taken to the OR by Dr. Vazquez for repair. Admitted to OBS to Dr. Whelan with consult to Dr. Vazquez Discharge Counseling Counseled pt/family regarding diagnosis, test results, medications/RX, follow up needs ED Critical Care Critical Care No If Critical Care minutes are documented, the time involved in the performance of seperately reportable procedures was not counted toward critical care time documented. I directly delivered medical care to this critically ill and/or injured patient. Timely evaluation and treatment was necessary to address the significant organ system(s) dysfunction present in this patient. at 0884
--- NOTE | 2016-12-24 08:08 | Emergency Room Report ---
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 N Clinical Suspician of Infection? N Mental Status: 1 - Regular (Normal Baseline) Sepsis Risk:Low Sepsis Risk Have you (or family members/close friends) recently traveled outside the [place]? N If Yes, where/when: Have you had exposure to infectious disease within the past month? N TB? Other? Specify: Source patient, RN notes reviewed Exam Limitations no limitations Comment pT A resident at [facility] and fell this morning injuring her right wrist. Obvious deformity and laceration on ventral surface with hematoma. No LOC. She is a Diabetic, Hypertensive and has CAD Cardiac Chest Pain Chest pain indicative of cardiac No Timing/Duration this morning ALLERGIES Coded Allergies: BANANAS (FOOD) (From BANANAS (FOOD/DRUG)) (01/03/13) Home Medications Active Scripts CLOPIDOGREL BISULFATE (Clopidogrel) 75 MG PO DAILY 30 Days Prov: 09/21/16 Diltiazem Hcl (Cardizem Cd 120MG Cap) 120 MG PO DAILY 30 Days Prov: 09/21/16 Aspirin (Aspirin EC 81MG Tab) 81 MG PO DAILY 30 Days Prov: 09/21/16 Ferrous Sulfate 325 MG PO DAILY 30 Days Prov: 09/21/16 VIT#96/FERROUS FUM/FA ( Tablet) 1 EACH PO DAILY 30 Days Prov: 09/21/16 Sertraline Hcl (Zoloft 50MG) 50 MG PO DAILY 30 Days Prov: 09/21/16 ASCORBIC ACID (Vitamin C) 500 MG PO DAILY 30 Days Prov: 09/21/16 Lisinopril 2.5 MG PO DAILY #30 TAB Prov: 12/07/16 Reported Medications Pioglitazone (Actos 15MG) 15 MG PO DAILY Atorvastatin Calcium (Atorvastatin) 40 MG PO QHS MULTIVITAMIN (Multivitamins) 1 CAP PO DAILY Pantoprazole Sodium (Pantoprazole 40MG) 40 MG PO DAILY NITROGLYCERIN (Nitrostat) 0.4 MG SL [id number] PRN CHEST PAIN Oxybutynin Chloride (Ditropan XL) 10 MG PO DAILY Ins Asp-Prt 70/Asp 30(Nvlogmx) (Novolog Mix 70-30 Flexpen Syrn) 16 UNITS SC BID History Medical History General CAD? No Angina: No [place]: No Hypertension? Yes Hyperlipidemia? Yes CHF? No DVT? No PE? No COPD? No Asthma? No Anemia? No GERD? No Gastric ulcers? No GI Bleed? No Hernia? No Thyroid Problems? No Hypothyroidism? No CVA? Yes Seizures? No Diabetes? Yes Insulin Dependent: No Insulin Pump: No Home FSBS? No Renal Insuffiency? No End Stage Renal Disease? No UTI? No Stones? No BPH? No GB Disease: No Nephritic Syndrome? No Asplenia? No Hepatitis? No Sickle Cell Disease? No Arthritis? Yes Migraines? No Cataracts? No Glaucoma? No MRSA? No HIV? No TB? No Anxiety? No Depression? No Cancer? No Site: N More? No Immunization Hx DT/Tetanus Unknown Flu [id number] Flu Season Pneumonia Refuses Surgical Hx Previous Surgery?Y BLADDER SX HYSTERECTOMY RIGHT ANKLE SEBACEOUS CYST REMOVED ELYL LEGS VEIN STRIPPING CARDIAC STENTS Family History Family Hx Diabetes Yes CAD No Hypertension No TB No Social History Smoking Hx Smoker: Current Every Day Smoker Tobacco: Yes Type Cigarettes Packs/day < 1 Pack Alcohol Alcohol: No Review of Systems All Other Systems Reviewed and Negative Constitutional see HPI Cardiovascular see HPI Musculoskeletal see HPI Skin see HPI Physical Exam Vital Signs Vital Signs Date Time Temp Pulse Resp B/P Pulse O2 O2 Flow FiO2 Ox Delivery Rate 12/25 0713 63 18 169/78 97 12/24 0729 98.6 66 18 155/74 96 General Appearance normal appearance, WD/WN, no apparent distress Respiratory Status No: respiratory distress. 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 Yes Paul was queried for this patient? No Reason not queried - emergent pt cond=no time Results/Orders Laboratory Tests 12/24/16 0730: Sodium 138, Potassium 5.0, Chloride 105, Carbon Dioxide 26, BUN 18, Creatinine 1.4 H, Estimated Creat Clear 36 L, Estimated GFR (MDRD) 36 L, Glucose 140 H, Calcium 9.0, Total Bilirubin 0.3, AST 19, ALT 26, Alkaline Phosphatase 80, Total Protein 6.8, Albumin 2.5 L, Globulin 4.3 H, Albumin/Globulin Ratio 0.6 L, PT 11.2, INR 1.05, WBC 5.1, RBC 3.11 L, Hgb 9.5 L, Hct 29.0 L, MCV 93.4, RDW 14.0, Plt Count 245, MPV 7.1 L, Gran % 42.3, Gran # 2.2, Lymphocytes % 47.6, Monocytes % 4.6, Eosinophils % 4.4, Basophils % 1.1, Lymphocytes # 2.4, Monocytes # 0.2, Eosinophils # 0.2, Basophils # 0.1, PUBS MCHC 33.0, MCH 30.8 Current Medication Orders Sig/Arina Start time Last Medication Dose Route Stop Time Status Admin Sodium Chloride 50 ML .STK-MED ONE 12/24 813 DC IV Cefazolin Sodium 0 .STK-MED ONE 12/25 811 DC .ROUTE Cefazolin Sodium 2 GM ONCE ONE 12/25 799 AC Sodium Chloride 50 ML IV 12/24 828 Sodium Chloride 10 ML PRN PRN 12/25 799 AC IV 12/25 756 Sodium Chloride 10 ML PRN PRN 12/25 799 AC IV 12/25 756 Orders Procedure Date/time Status Decision to admit 12/24 820 Active CHEST-PORTABLE 12/24 804 Active CULTURE, BLOOD 12/24 804 Active IV SALINE LOCK 12/24 800 Active CULTURE, BLOOD 12/24 800 Active PROTHROMBIN TIME 12/24 800 Complete CBC WITH AUTO DIFF 12/24 800 Complete CHEM 12 PROFILE 12/24 800 Complete WRIST-3 VIEWS-RT 12/24 730 Active XRAY/CT/US XRAY/CT/US XRAY wrist XR interpretation by reviewed by me Xray Results compound fracture of distal right radius and ulna with overriding Departure Departure Time of Disposition 08 Disposition Still a Patient Clinical Impression Primary Impression: Open fracture of right wrist Qualifiers: Encounter type: initial encounter Qualified Code: S62.101B - Fracture of unspecified carpal bone, right wrist, initial encounter for open fracture Secondary Impressions: CAD (coronary artery disease) Qualifiers: Coronary Disease-Associated Artery/Lesion type: unspecified vessel or lesion type [place] vs. transplanted heart: [place] heart Associated angina: without angina Qualified Code: I25.10 - Atherosclerotic heart disease of [place] coronary artery without angina pectoris Diabetes mellitus, insulin dependent (IDDM), controlled Condition STABLE Referrals BELKYS SALGADO, CAMELIA TYSON Patient Instructions DI for Wrist Fracture Additional Instructions Pt will be seen in the ED by Dr. Vazquez and pt will be kept NPO. Given Ancef 2 gms IV in the ED and got Morphine for pain by EMS on way to hospital. Spoke with Dr. Vazquez and Dr. Whelan...Pt being admitted by Dr. Whelan and will be taken to the OR by Dr. Vazquez for repair. Admitted to OBS to Dr. Whelan with consult to Dr. Vazquez Discharge Counseling Counseled pt/family regarding diagnosis, test results, medications/RX, follow up needs ED Critical Care Critical Care No If Critical Care minutes are documented, the time involved in the performance of seperately reportable procedures was not counted toward critical care time documented. I directly delivered medical care to this critically ill and/or injured patient. Timely evaluation and treatment was necessary to address the significant organ system(s) dysfunction present in this patient. at 0881
[2016-12-24 08:12] LABS: HEMOGLOBIN 9.5 g/dL (12.2-16.2)
--- OUTSIDE RECORDS SUMMARY | 2016-12-24 08:41 | External Medical Summary Rpt ---
Author Author , LINDSAY MONTOYA Address Unknown Phone [email or web address] Team Providers Care Quick Print Operator Name Role Phone PHILLIPS LUZ, PHILLIPS Unavailable Unavailable LUZ VIKY FRA, VIKY Unavailable Unavailable FRA BEINEKE, BEINEKE Unavailable Unavailable CHE, CHE Unavailable Unavailable CHE KRYSTAL, Unavailable Unavailable CHE KRYSTAL REYNOLDS ALL, REYNOLDS ALL Unavailable Unavailable BRAUDIS, BRAUDIS Unavailable Unavailable BRAUDIS, BRAUDIS Unavailable Unavailable BRAUDIS JAM, BRAUDIS Unavailable Unavailable JAM BRAUDIS JAM, BRAUDIS Unavailable Unavailable JAM [facility] Unavailable Unavailable SERVICE, [facility] Unavailable Unavailable SERVICE, [facility] Unavailable Unavailable [place], [...] Unavailable GIVEN CUR, GIVEN CUR Unavailable Unavailable [facility] Unavailable Unavailable INC, [facility] Un[facility] Un[facility] P, [facility], Unavailable Unavailable [facility] OTIS BERG Unavailable Unavailable ALEC VIRK, ALEC VIRK Unavailable Unavailable ILDA, ILDA Unavailable Unavailable [facility], [facility] Unavailable Unavailable [facility], [facility] Un[facility], [facility] Un[facility], [facility] Unavailable Unavailable 11, [facility] 11 [facility] Unavailable Unavailable ACTION, [facility] MCKEMIE JR YO, Unavailable Unavailable MCKEMIE JR YO [facility] Unavailable Unavailable [facility], Unavailable Unavailable [facility], Unavailable Unavailable PLL[facility], [facility] LAURA, MALACHI A, Unavailable Unavailable LAURA, MALACHI A WANDER TOD, WANDER TOD Unavailable Unavailable SCIFRES ANG, SCIFRES Unavailable Unavailable ANG SCIFRES ANG, SCIFRES Unavailable Unavailable ANG LUCY JUAREZ, SHAENIDY Unavailable Unavailable ANN MOISE, JOSE MARIA Unavailable Unavailable CANDELARIA, IVY N, Unavailable Unavailable CANDELARIA, IVY N [facility] Unavailable Unavailable [facility], [facility] Unavailable Unavailable [facility], [facility] SOTINGEANU, Unavailable Unavailable SOTINGEANU ANDRE, Unavailable Unavailable ANDRE Clinton Patterson MD, Unavailable Unavailable Clinton Patterson MD [facility] Unavailable Unavailable HOSPITALS, [facility], Unavailable Unavailable [facility] MCCORD BHAKTI, MCCORD BHAKTI Unavailable Unavailable WEHRMAN III YO, Unavailable Unavailable WEHRMAN III YO Purpose Continuity of Care Document - 12-26-2008 through 2016 Problems Code Diagnosis DOS Provider Status E1165 TYPE 2 10-24-2016 [facility] [place]YCEM [place] E785 HYPERLIPIDE 10-24-2016 [facility] UNSPECIFIED HOSPITALS I10 ESSENTIAL 10-24-2016 [facility] N I129 HYPERTENSIV 10-24-2016 [facility] E CKD [facility]CARE W/STAGE 1-4 HOSPITALS CKD OR UNS CKD N189 CHRONIC 10-24-2016 [facility] UNSPECIFIED Z8673 PERSONAL HX 10-24-2016 [facility] INFARCT NO RESID DEFICIT E118 TYPE 2 09-24-2016 [facility], MELLITUS PLLC W/UNS COMPLICATIO NS 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 [facility] 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[facility], 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 N289 DISORDER OF 09-24-2016 [facility], URETER PLLC UNSPECIFIED R4182 ALTERED 09-24-2016 [facility]AL [facility], STATUS PLLC UNSPECIFIED R5383 OTHER 09-24-2016 [facility] I4891 UNSPECIFIED 09-22-2016 [facility] ATRIAL HEART FIBRILLATIO N R748 ABNORMAL 09-22-2016 [facility] LEVELS OF HEART OTHER SERUM ENZYMES I214 NON-ST 09-21-2016 [facility] ELEVATION PHYSICIANS MYOCARDIAL GROUP INFARCTION D26873 ASHD [place] 09-21-2016 [facility] COR ART PHYSICIANS W/UNSTABLE GROUP ANGINA PECTORIS I495 SICK SINUS 09-21-2016 [facility] SYNDROME PHYSICIANS GROUP N183 CHRONIC 09-21-2016 [facility] KIDNEY PHYSICIANS DISEASE GROUP STAGE 3 MODERATE Q08125 HEMIPLEGIA 09-20-2016 [facility] FLW PHYSICIANS CEREBRAL GROUP INFARCT AFFCT UNS SIDE 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 [facility] OSIS OF PHYSICIANS RENAL GROUP ARTERY T22917 ENCOUNTER 09-20-2016 [facility] FOR OTHER PHYSICIANS PREPROCEDUR GROUP AL EXAMINATION E1122 TYPE 2 09-19-2016 [facility] DIABETES [facility] MELLITUS INC W/DIAB CHRON KIDNEY DZ 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 U53287 HEMIPLEGIA 09-19-2016 [facility] FLW [facility] CEREBRAL INC INFARCT AFF RT DOM SIDE N390 URINARY 09-19-2016 [facility] TRACT [facility] INFECTION INC SITE NOT SPECIFIED R0602 SHORTNESS 09-19-2016 [facility] BREATH PHYSICIANS, PLLC R079 CHEST PAIN 09-19-2016 [facility] UNSPECIFIED AMBULANCE SERVICE R7989 OTHER SPEC 09-19-2016 [facility] BLOOD CHEMISTRY E119 TYPE 2 09-15-2016 [facility] HOME MELLITUS MEDICAL WITHOUT EQUIPME COMPLICATIO NS B351 TINEA 09-07-2016 BRAUDIS UNGUIUM E1151 TYPE 2 DM 09-07-2016 [facility] W/DIAB 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 O47206 PAIN IN 09-07-2016 [facility] RIGHT TOES S12579 PAIN IN 09-07-2016 [facility] LEFT TOES R600 LOCALIZED 09-07-2016 [facility] EDEMA H1789 OTHER 07-11-2016 [facility] OPACITIES R69 ILLNESS 07-11-2016 [facility] UNSPECIFIED TRANSPORTAT ION SER S4100RE FOREIGN 05-27-2016 [facility] COR[facility] UNS INSTITUTE EYE INITIAL ENCOUNTER Z961 PRESENCE OF 05-27-2016 [facility] INTRAOCULAR INSTITUTE LENS S31274 PAIN IN 01-22-2016 [facility] LEFT THIGH MOBILE DIAGNOSTIC SE R7611 NONSPECIFIC 12-30-2015 [facility] RXN MOBILE TUBERCULIN DIAGNOSTIC SKIN TEST SE W/O ACT TB N250 RENAL 10-05-2015 [facility] OSTEODYSTRO SERV PHY [facility] Z794 CLINICAL INFORMATICS EDUCATOR 10-05-2015 [facility] CURRENT USE SERV OF INSULIN [facility] H2513 AGE-RELATED 07-03-2015 SCIFRES ANG NUCLEAR CATARACT BILATERAL Y76376 PUPILLARY 04-28-2015 [facility] ABNORMALITY [facility] LEFT EYE INC O19376 COMBINED 04-28-2015 CHE FORMS OF 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 LEFT EYE H269 UNSPECIFIED 04-28-2015 [facility] CATARACT MEM HOSP INC H5703 MIOSIS 04-28-2015 CHE KRYSTAL N3941 URGE 04-21-2015 [facility] P 2859 UNSPECIFIED 02-25-2015 [facility] ANEMIA [facility] INC 38428 02-25-2015 [facility] TRANSPORTAT ION SER 2410 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 [facility] GOITER [facility] 62256 DIAB W/O 02-17-2015 [facility] COMP TYPE MEM HOS[facility] II/UNS NOT INC STATED UNCNTRL 2558 OTHER 02-17-2015 [facility] SPECIFIED MEDICAL DISORDERS IMAGING ASS OF ADRENAL GLANDS 75839 UNSPEC 02-17-2015 [facility] VENTRAL MEDICAL NIMO W/O IMAGING ASS MENTION OBST/GANGRE N 5932 ACQUIRED 02-17-2015 [facility] CYST OF MEDICAL KIDNEY IM[facility]ING [facility] 98532 NONSPEC 12-25-2014 [facility] REACT MOBILE TUBERCULIN DIAGNOSTIC [place] W/[place] [address] OTHER ACUTE 09-19-2014 [facility] PAIN PHYSICIANS GROUP 7062 SEBACEOUS 09-19-2014 [facility] CYST PHYSICIANS GROUP 7820 DISTURBANCE 09-19-2014 [facility] OF SKIN PHYSICIANS SENSATION GROUP V154 PERS HX 09-17-2014 DEPT FOR PSYCHOLOGIC PUBLIC HLTH AL TRAUMA PRS [facility] 4739 UNSPECIFIED 07-04-2014 [facility]IS [facility] 7813 LACK OF 07-04-2014 [facility] COORDINATIO [facility]ICAL N IMAGING ASS 13188 DIAB W/O 07-03-2014 [facility] COMP TYPE HOSPITAL P II/UNS TYPE UNCNTRL 4019 UNSPECIFIED 07-03-2014 [facility] ESSENTIAL [facility] HYPERTENSIO HOSPITAL P N 88259 MUSCLE 07-03-2014 [facility] WEAKNESS [facility] (GENERALIZE HOSPITAL P D) 94763 OTHER 07-03-2014 [facility] MALAISE AND [facility] FATIGUE HOSPITAL P 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 62307 DIAB 06-28-2013 ALEXIA MEADE W/PERIPH CIRC D/O TYPE II/UNS NOT UNCNTRL 7011 ACQUIRED 06-28-2013 ALEXIA MEADE KERATODERMA 7295 PAIN IN 06-28-2013 ALEXIA MEADE SOFT TISSUES OF LIMB 7823 EDEMA 06-28-2013 ALEXIA MEADE 5853 CHRONIC 04-15-2013 [facility]NEY [facility] DISEASE INC STAGE III (MODERATE) 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 7533 OTHER 04-15-2013 [facility] SPECIFIED MARTIN CONGENITAL ANOMALIES OF KIDNEY 26060 DEHYDRATION 01-03-2013 SIGRID MONTENEGRO YO 2767 HYPERPOTASS 01-03-2013 SIGRID MONTENEGRO EMIA YO 3319 UNSPECIFIED 01-02-2013 GIOV[facility]NA CEREBRAL MARTIN DEGENERATIO N 514 PULMONARY 12-04-2012 EXPRESS CONGESTION [place] [address] SHORTNESS 12-04-2012 [place] [address] UNSPECIFIED 04-30-2012 GIVEN CUR CEREBRAL ARTERY OCCLUSION W/INFARCT 38643 OCCL&STENOS 04-05-2012 GIOVANNA MX&BILAT MARTIN PRECERBRL ART W/O INFARCT 35814 UNSPEC 04-04-2012 [place] CERBRL ART MEDICAL OCCLUSION IMAGING ASS W/O MENTION INFARCT 4370 CEREBRAL 04-04-2012 [place] ATHEROSCLER MEDICAL OSIS IM[facility] 4371 OTH 04-04-2012 [facility] GENERALIZED MEDICAL ISCHEMIC IMAGING ASS CEREBROVASC ULAR DISEASE V5869 LONG-TERM 01-18-2012 COMBINED (CURRENT) PHYSICIANS USE OF [place] OTHER MEDICATIONS 21986 OSTEOARTHRO 12-16-2011 [place] [facility] UNSPEC SERV WHETHER [facility] GEN/LOC LOWER LEG 40255 PAIN IN 12-16-2011 [place] [facility] JOINT, SERV LOWER LEG [facility] 12158 EXOSTOSIS 12-16-2011 [place] [facility] OF SERV UNSPECIFIED FOUNDAT[facility] SITE 95435 MEMORY LOSS 08-21-2009 [facility] V1254 PERSONAL HX 08-21-2009 [facility] W/O RESIDUAL DEFICITS 4409 GENERALIZED 07-17-2009 [facility] UNSPECIFIED ATHEROSCLER OSIS 7213 LUMBOSACRAL 07-17-2009 [facility] 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 7242 LUMBAGO 07-17-2009 [facility] 21423 ALTERED 07-17-2009 [facility] M[facility] STATUS [facility] 2724 OTHER AND 12-26-2008 [facility] UNSPECIFIED SERV [facility] HYPERLIPIDE PAT 276.7 Hyperkalemi [facility] 586 Uremia [facility] 780.93 Memory [facility] E11.9 TYPE 2 DIABETES MELLITUS WITHOUT COMPLICATIO NS I25.10 ATHSCL HEART DISEASE OF [place] CORONARY ARTERY W/O ANG PCTRS I48.91 UNSPECIFIED [...] CY 5 MG TA BL ET 00 07 30 30 00 ME Ac PI [...] 90 -2 -2 .0 00 D ti DC 40 4- 3- 00 14 CA ve [...] 90 -2 -0 .0 00 D ti DC 40 7- 2- 00 14 CA ve [...] 90 -3 -0 .0 00 D ti DC 40 1- 5- 00 13 CA ve [...] 90 -0 -0 .0 00 D ti DC 40 3- 7- 00 13 CA ve [...] 90 -0 -1 .0 00 D ti DC 40 3- 0- 00 13 CA ve [...] 90 -0 -1 .0 00 D ti DC 40 5- 0- 00 13 CA ve [...] AR BL MA ET CY LL C 00 12 01 30 30 00 ME Ac TA 90 -0 -0 .0 00 D ti DC 40 7- 9- 00 13 CA ve N 52 20 20 40 RE C 38 16 17 98 50 0 09 PH 0 AR MG MA CY TA BL LL ET C LO 00 12 01 30 30 00 ME Ac RA 78 -0 -0 .0 00 D ti TA 15 3- 9- 00 13 CA ve DI 07 20 20 39 RE NE 70 16 17 16 1 27 PH 10 AR MA MG CY TA LL BL C ET AM 51 07 1 No LO 07 [...] Order Detail nces retati t Range on Lactate Bld-sCnc (10-24-2016 16:17) Lactate 1.3 complet 017 mmol/L ed Bld-sCn 16:17 c Ketones SerPl-mCnc (10-24-2016 16:17) Ketones NEG NEGATIV complet 017 NEGATIV E ed SerPl-m 16:17 E L Cnc Glucose dC Glucomtr-[facility] (01-04-2013 11:50) Glucose 120 70-110 complet BldC 013 mg/dl ed Glucomt 11:50 r-nc BASIC METABOLIC PANEL (01-04-2013 07:30) Glucose 100 [...] mg/dL 1 ed SerPl-m 07:30 Cnc Glucose dC Glucomtr-[facility] (01-04-2013 06:11) Glucose 105 70-110 complet BldC 013 mg/dl ed Glucomt 06:11 r-[facility] Glucose dC Glucomtr-[facility] (01-03-2013 20:12) Glucose 07-18-2 147 70-110 complet BldC 013 mg/dl ed Glucomt 20:12 r-[facility] Glucose dC Glucomtr-[facility] (01-03-2013 17:03) Glucose 01-03-2 199 70-110 complet BldC 013 mg/dl ed Glucomt 17:03 r-[facility] Glucose dC Glucomtr-[facility] (01-03-2013 11:29) Glucose 01-03-2 133 70-110 complet BldC 013 mg/dl ed Glucomt 11:29 r-[facility] BASIC METABOLIC PANEL (01-03-2013 06:30) Glucose 01-03-2 106 74-106 complet 013 mg/dL ed Bld-mCn 06:30 c BUN 01-03-2 25 7-18 complet Bld-mCn 013 mg/dL ed c 06:30 Creat 01-03- 1.5 0.6-1.0 complet SerPl-m 013 mg/dL ed Cnc 06:30 ESTIMAT 01-03-2 35 50-200 complet ED 013 ML/MIN ed CREATIN 06:30 INE CLEARAN CE GFR 01-03- 34 59- complet (ESTIMA 013 ML/MIN ed KEN) 06:30 Sodium 01-03-2 138 136-145 complet SerPl-s 013 mmoL/L ed Cnc 06:30 Potassi 01-03- 5.1 3.5-5.1 complet um 013 mmoL/L ed SerPl-s 06:30 Cnc Chlorid 01-03- 108 98-107 complet e 013 mmoL/L ed SerPl-s 06:30 Cnc CO2 01-03- 23 21.0-32 complet SerPl-s 013 mmoL/L .0 ed Cnc 06:30 Calcium 01-03-2 8.0 8.5-10. complet 013 mg/dL 1 ed SerPl-m 06:30 Cnc Glucose dC Glucomtr-[facility] (01-03-2013 06:30) Glucose 01-03-2 111 70-110 complet BldC 013 mg/dl ed [facility] (01-02-2013 21:10) Glucose 01-02-2 238 70-110 complet BldC 013 mg/dl ed Glucomt 21:10 r-[facility] Ammonia Plas-sCnc (01-02-2013 18:08) Ammonia -17-2 3 11-32 complet 013 umoL/L ed Plas-sC 18:08 nc Glucose BldC Glucomtr-[facility] (01-02-2013 16:53) Glucose 07-17-2 111 70-110 complet BldC 013 mg/dl ed [facility] 16:[facility] URINALYSIS/COMPLETE (01-02-2013 12:50) URINE 07-17-2 YELLOW YELLOW [...] 013 E ed ESTERAS 12:50 E URINE 07-17-2 TRACE O complet BACTERI 013 ed A 12:50 COMPREHENSIVE METABOLIC PANEL (01-02-2013 12:00) Glucose -17-2 71 74-106 complet 013 mg/dL ed Bld-mCn 12:00 c BUN -17-2 31 7-18 complet Bld-mCn 013 mg/dL ed c 12:00 Creat -17-2 1.8 0.6-1.0 complet SerPl-m 013 mg/dL ed Cnc 12:00 ESTIMAT --2 28 50-200 complet ED 013 ML/MIN ed [...] complet SerPl-c 013 ed Cnc 12:00 ALT 40 U/L 30-65 complet SerPl-c 013 ed Cnc 12:00 ALP 71 U/L 50-136 complet SerPl-c 013 ed Cnc 12:00 CBC with AUTO DIFF (01-02-2013 12:00) WBC # 17-2 7.3 4.8-10. complet Bld 013 K/MM3 8 ed Auto 12:00 RBC # 01-02-2 3.92 4.2-5.4 complet Bld 013 M/mm3 ed Auto 12:00 Hgb 01-02-2 11.6 12.2-16 complet Bld-mCn 013 g/dL .2 ed c 12:00 Hct Fr 35.2 % 37.0-47 complet Bld 013 .0 ed 12:00 MCV RBC 89.7 fl 82.2-97 complet 013 .8 ed 12:00 MCH RBC 29.5 pg 27-31.2 complet Qn 013 ed Auto 12:00 MEAN 32.8 31.8-35 complet CORPUSC 013 g/dl .4 ed ULAR 12:00 HGB CONC RDW RBC 14.1 % 11.5-17 complet Auto 013 .5 ed 12:00 Platele 274 142-424 complet t Bld 013 K/mm3 ed Ql 12:00 Manual MEAN 7.0 fl 7.4-10. complet PLATELE 013 4 ed T 12:00 VOLUME Granulo 2 51.2 % 37.0-80 complet cytes 013 .0 ed Fr Bld 12:00 Auto LYMPH % 01-02-2 40.9 % 10-50.0 complet 013 ed 12:00 Monocyt 01-02-2 4.3 % 1.7-9.3 complet es Fr 013 ed Bld 12:00 Auto Eosinop -17-2 2.7 % 0.1-12. complet hil Fr 013 0 ed Bld 12:00 Auto Basophi -17-2 0.9 % 0.1-2.0 complet ls Fr 013 ed Bld 12:00 Auto Granulo -17-2 3.7 1.8-7.8 complet cytes # 013 K/mm3 ed Bld 12:00 Auto Lymphoc -17-2 3.0 0.7-4.5 complet ytes Fr 013 K/mm3 ed Bld 12:00 Auto Monocyt -17-2 0.3 0.1-1.0 complet es # 013 K/mm3 ed Bld 12:00 Auto Eosinop -17-2 0.2 0.0-0.4 complet hil # 013 K/mm3 ed Bld 12:00 Auto Basophi -17-2 0.1 0-0.2 complet ls # 013 K/MM3 ed Bld 12:00 Auto Procedures Procedure DOS Code Location Performer Comment KETONE [address] [facility] BODIES 7 [facility]ALTHCAR HEALTHCAR SERUM E E QUANTITAT [facility] ALIREZA GLUC BLD 90825 [facility] GLUC MNTR 7 [place] [facility] CLEARED PSC FDA SPEC HOME USE HEMOGLOBI 81179 [facility] N 7 [place] [facility] KEN A1C PSC GASES 75580 [facility] BLOOD PH 7 [facility]ALTHCAR HEALTHCAR DIRECT E E LISETTE XCPT [facility] [address] [facility] LACTATE 7 [facility]ALTHCAR HEALTHCAR E E HOSPITALS HOSPITALS COMPREHEN 78170 [facility] SIVE 7 HEALTHCAR HEALTHCAR METABOLIC E E PANEL [facility] RADIOLOGI 41150 [facility] C EXAM 7 HEALTHCAR HEALTHCAR CHEST 2 E E VIEWS [facility] FRONTAL&L ATERAL BLOOD 77510 [facility] COUNT 7 HEALTHCAR HEALTHCAR COMPLETE E E AUTOMATED [facility] RADIOLOGI 19392 CLEMENTEKelly JENAE C 7 MEDICAL EXAMINATI IMAGING ON CHEST ASS SINGLE VIEW FRONTAL GROUND A0425 [facility] MILEAGE 7 AMBULANCE AMBULANCE PER SERVICE SERVICE STATUTE MILE AMB A0427 [facility] SERVICE 7 AMBULANCE AMBULANCE ALS SERVICE SERVICE [place] [address] YARELI HEREDIA HEAD/BRAI 7 MEDICAL N W/O IMAGING CONTRAST ASS [facility] [address] DAY HEART MANAGEMEN T > 30 MIN SBSQ [address] [place] [address] PHYSICIAN CARE/DAY S GROUP 25 MINUTES GROUND A0425 [facility] AMBULANCE PER SERVICE SERVICE STATUTE MILE INITIAL [address] CARE/DAY HEART 50 [place]Q [address] [facility] TRLUML 7 PHYSICIAN CORONARY S GROUP STENT W/ANGIO ONE ART/BRNCH AMB A0426 [facility] 7 AMBULANCE AMBULANCE ALS SERVICE SERVICE NONEMERGE NCY TRANSPORT LEVEL 1 SBSQ 17674 [place] [address] PHYSICIAN CARE/DAY S GROUP 15 MINUTES FLUORO [id number] [facility] GARZA 7 MEM HOS[facility]OS[facility] CORONARY INC INC ARTERIES LOW OSMOLAR CONT FLUOROSCO [id number] [facility]OCK[facility]ART PY LEFT 7 [facility] HEART LOW INC INC OSMOLAR CONTRAST FLUORO [id number] [facility] BILATERAL 7 [facility] RENAL INC INC ART LOW OSMOLAR CONTRST FLUORO LT [id number] RICHY LOCKHART 7 [facility] SUBCLAVIA INC INC N ARTERY LOW OSMOLAR CONTRAST MEASUREME [id number] RICHY ECHEVARRIAON NT 7 [facility] CARDIAC INC INC 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 LT HEART PERQ SLCTV 05536 [facility] JOSE MARIA CATH 7 PHYSICIAN SUBCLAVIA S GROUP N ART ANGIO VERTEBRAL ARTERY CATH PLMT 08854 [facility] L HRT & 7 PHYSICIAN PHYSICIAN ARTS S GROUP S GROUP W/NJX & ANGIO IMG S&I SLCTV 95949 [facility] JOSE MARIA CATH 7 PHYSICIAN 1STORD S GROUP W/WO ART PUNCT/FLU OR/S&I ELLY AMB A0427 [facility] SERVICE 7 AMBULANCE AMBULANCE ALS SERVICE SERVICE EMERGENCY TRANSPORT LEVEL 1 GROUND A0425 [facility] MILEA 7 AMBULANCE AMBULANCE PER SERVICE SERVICE STATUTE MILE RADIOLOGI 15825 [facility] C EXAM 7 MEDICAL CHEST 2 IMAGING VIEWS ASS FRONTAL&L ATERAL INITIAL 81989 [facility] 7 PHYSICIAN A CARE/DAY S GROUP 70 MINUTES DUPLEX 31182 [facility] 7 MEDICAL EXTRACRAN IMAGING IAL ART ASS COMPL BI STUDY PULMONARY 60307 [facility] 7 MEDICAL VENTILATI IMAGING ON & ASS PERFUSION IMAGING BLD GLU A4253 NAKUL MOTA TEST/REAG 7 HOME HOME T [facility] MED[facility] MEDICAL HOME BLD EQUIPME EQUIPME GLU MON-50 LANCETS A4259 NAKUL MOTA PER BOX 7 HOME HOME OF 100 MEDICAL MEDICAL EQUIPME [place] [address] ALEXIA HALE TTING 7 BENIGN HYPERKERA TOTIC LESION 1 DEBRIDEME 15535 ALEXIA HALE NT NAIL 7 ANY METHOD 6/> NONEMERG A0120 [facility]ER[facility] FEDERATED TRNSPRT: 7 [facility] TRANSPORT TRANSPORT MTN ATION SER ATION SER AREA/OTH SYS NONEMERG A0120 FEDERATED FEDERATED TRNSPRT: 6 MINI-BUS TRANSPORT TRANSPORT MTN ATION SER ATION SER AREA/OTH SYS OPHTH 94965 [facility] 6 EYE XM&EVAL INSTITUTE INTERMEDI ATE ESTAB PT NONEMERG A0120 FEDERATED FEDERATED TRNSPRT: 6 MINI-BUS TRANSPORT TRANSPORT MTN ATION SER ATION SER AREA/OTH SYS NONEMERG A0120 FEDERATED FEDERATED TRNSPRT: 6 MINI-BUS TRANSPORT TRANSPORT MTN ATION SER ATION SER AREA/OTH SYS DEBRIDEME 90415 BRAGERSONS BRAUDIS NT NAIL 6 ANY METHOD 6/> [place]/CU 06887 ALEXIA TURNERS TTING 6 BENIGN HYPERKERA TOTIC LESION 2-4 RADIOLOGI 21704 EXPRESS SHASHY C 6 MOBILE ANN EXAMINATI DIAGNOSTI ON FEMUR C SE MINIMUM 2 VIEWS DEBRIDEME 70816 JOHNNYS MARJORIEUDIS NT NAIL 6 JAM JAM ANY METHOD 6/> RADIOLOGI 01763 EXPRESS EXPRESS C EXAM 6 MOBILE MOBILE CHEST 2 DIAGNOSTI DIAGNOSTI VIEWS C SE C SE FRONTAL&L ATERAL NONEMERG A0120 FEDERATED FEDERATED TRNSPRT: 6 MINI-BUS TRANSPORT TRANSPORT MTN ATION SER ATION SER AREA/OTH SYS DEBRIDEME 68801 MARJORIEGERSONS BRAUDIS NT NAIL 6 JAM JAM ANY METHOD 6/> NONEMERG A0120 FEDERATED FEDERATED TRNSPRT: 6 MINI-BUS TRANSPORT TRANSPORT MTN ATION SER ATION SER AREA/OTH SYS DIAB ONLY A5500 [facility] FIT CSTM 6 MEDICAL MEDICAL PREP&SPL SUPPLY SUPPLY [employer] DNSITY INSRT FOR DIAB A5512 [place] ONLY MX 6 MEDICAL MEDICAL DNSITY SUPPLY SUPPLY [employer] FORMD PRFAB EA OPHTH 95679 SCIFRES SCIFRES MEDICAL 6 ANG ANG XM&EVAL [...] MTN ATION SER ATION SER AREA/OTH SYS LANCETS A4259 NAKUL MOTA PER BOX 5 HOME HOME OF 100 MEDICAL MEDICAL EQUIPME EQUIPME BLD GLU A4253 NAKUL MOTA TEST/REAG 5 HOME HOME T STRIPS MEDICAL MEDICAL HOME BLD [place]QUIP[place] MON-50 [place] [address] [facility] ECHEVARRIAON [facility] 5 [facility] THERAPY INC INC PROPHYLAX IS/DX EA HOUR XCAPSULAR 41607 RICHY ECHEVARRIAON CATARACT 5 [facility] RMVL INC INC INSJ LENS PROSTH 1 STG NONEMERG A0120 FEDERATED FEDERATED TRNSPRT: 5 MINI-BUS TRANSPORT TRANSPORT MTN ATION SER ATION SER AREA/[place] [address] RICH[facility] ECHEVARRIAON INFUSION 5 [facility]ERAPY/P INC INC ROPHYLAXI S /DX 1ST TO 1 HR NONEMERG A0120 FEDERATED FEDERATED TRNSPRT: 5 MINI-BUS [...] ATION SER ATION SER AREA/[place] [address] [facility] ALL ABDOMEN & 5 MEDICAL PELVIS IMAGING W/O ASS CONTRAST MATERIAL CT THORAX 16218 RICHY LOCKHART W/O 5 [facility] CONTRAST INC INC MATERIAL NONEMERG A0120 FEDERATED FEDERATED TRNSPRT: 5 MINI-BUS TRANSPORT TRANSPORT MTN ATION SER ATION SER [facility]/OTH SYS RADIOLOGI 97789 EXPRESS EXPRESS C EXAM 5 MOBILE MOBILE CHEST 2 DIAGNOSTI DIAGNOSTI VIEWS C SE C SE FRONTAL&L ATERAL LANCETS A4259 NAKUL HUERTASRELL PER BOX 5 HOME HOME OF 100 MEDICAL MEDICAL EQUIPME EQUIPME BLD GLU A4253 NAKUL NAKUL TEST/REAG 5 HOME HOME T [facility]IPS MED[facility] MEDICAL HOME BLD EQUIPME EQUIPME GLU MON-50 NONEMERG A0120 FEDERATED FEDERATED TRNSPRT: 5 MINI-BUS TRANSPORT TRANSPORT MTN ATION SER ATION SER [facility]/OTH SYS NONEMERG A0120 FEDERATED FEDERATED TRNSPRT: 5 MINI-BUS TRANSPORT TRANSPORT MTN ATION SER ATION SER [facility]/OTH SYS EXC B9 34037 [facility] WANDER TOD LESION 5 PHYSICIAN MRGN XCP S GROUP SK TG T/A/L 2.1-3.0 CM REPAIR 58793 RICHY LOCKHART INTERMEDI 5 [facility] ATE INC INC S/A/T/E 2.6-7.5 CM NONEMERG A0120 FEDERATED FEDERATED TRNSPRT: 5 MINI-BUS TRANSPORT TRANSPORT MTN ATION SER ATION SER [facility]/[place] [address] [place] [facility] HEAD/BRAI 5 MEDICAL MARTIN N W/O IMAGING CONTRAST ASS MATERIAL NONEMERG A0120 FEDERATED FEDERATED TRNSPRT: 4 TRANS MINI-BUS TRANSPORT SERVBLUEG MTN ATION SER [place] AREA/OTH SYS LANCETS A4259 NAKUL [...] HOME BLD EQUIPME EQUIPME GLU MON-50 PARING/CU 66581 ALEXIA HALE TTING 4 JAM JAM BENIGN HYPERKERA TOTIC LESION 1 DEBRIDEME 89249 ALEXIA HALE NT NAIL 4 JAM JAM ANY METHOD 6/> BLD GLU A4253 NAKUL NAKUL TEST/REAG 3 HOME HOME T [facility] MED[facility] MEDICAL HOME BLD EQUIPME EQUIPME GLU MON-50 LANCETS A4259 NAKUL NAKUL PER BOX 3 HOME HOME OF 100 [place] [address] [place] GIOVANNA ABDOMINAL 3 MARTIN MARTIN [place] TIME W/[place] [address] RICHY ECHEVARRIAON 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 3 [facility] TONEAL INC INC REAL TIME W/IMAGE COMPLETE NONEMERG A0120 LKLP CAC LKLP CAC TRNSPRT: 3 INC INC MINI-BUS REGION 11 REGION 11 [facility] AREA/OTH SYS LANCETS A4259 NAKUL NAKUL PER BOX 3 HOME HOME OF 100 MEDICAL MEDICAL EQUIPME EQUIPME BLD GLU A4253 NAKUL NAKUL TEST/REAG 3 HOME HOME T STRIPS MEDICAL MEDICAL HOME BLD EQUIPME EQUIPME GLU MON-50 RADIOLOGI 07624 EXPRESS EXPRESS C EXAM 3 MOBILE MOBILE CHEST 2 DIAGNOSTI DIAGNOSTI VIEWS C SE C SE FRONTAL&L [facility] 78584 MCKEMIE MCKEMIE DISCHARGE 3 JR YO JR YO DAY MANAGEMEN T 30 MIN/< ECG 03184 KIERSTEN BURCH ROUTINE 3 III YO III YO ECG W/LEAST 12 LDS I&[place] [address] GIOVANNA GIOVANNA HEAD/BRAI 3 MARTIN MARTIN N W/O CONTRAST MATERIAL RADIOLOGI 43074 EXPRESS EXPRESS C EXAM 3 MOBILE MOBILE CHEST 2 DIAGNOSTI DIAGNOSTI VIEWS C SE C SE FRONTAL&L ATERAL BLD GLU A4253 NAKUL HUERTASRELL TEST/REAG 3 HOME HOME T [facility] BLD EQUIPME EQUIPME GLU MON-50 NONEMERG A0120 [facility] TRNSPRT: 2 [facility]I-[facility] ACTION ACTION MTN AREA/OTH SYS NONEMERG A0120 [facility] TRNSPRT: 2 [facility] ACTION ACTION MTN AREA/OTH SYS MRA NECK 38690 GIOVANNA PERRYUTCHER W/O 2 MARTIN MARTIN CONTRST MATERIAL MRI BRAIN 02424 [facility] [place] BRAIN 2 [facility] STEM W/O INC INC CONTRAST MATERIAL MRI BRAIN 70805 [place] GIOVANNA BRAIN 2 MEDICAL MARTIN STEM W/O IMAGING CONTRAST ASS MATERIAL MRA HEAD 90299 [place] GIOVANNA W/O 2 MEDICAL MARTIN CONTRST IMAGING MATERIAL ASS NONEMERG A0120 [facility] TRNSPRT: 2 [facility] ACTION ACTION MTN AREA/OTH SYS NONEMERG A0120 [facility] TRNSPRT: 2 [facility] ACTION ACTION MTN AREA/OTH SYS HEMOGLOBI 45105 COMBINED COMBINED N 2 PHYSICIAN PHYSICIAN GLYCOSYLA S LA S LA KEN A1C LIPID 32711 COMBINED COMBINED PANEL 2 PHYSICIAN PHYSICIAN S LA S LA BLOOD 94847 COMBINED COMBINED COUNT 2 PHYSICIAN PHYSICIAN COMPLETE S LA S LA AUTO&AUTO DIFRNTL WBC COMPREHEN 09996 COMBINED COMBINED SIVE 2 PHYSICIAN PHYSICIAN METABOLIC S LA S LA PANEL RADIOLOGI 36594 [place] C 2 MEDICAL FRA EXAMINATI SERV ON KNEE FOUNDATIO 1/2 VIEWS MRI BRAIN 06040 [facility] BRAIN 0 Y Y STEM W/O [facility] [place] [address] [facility] THYROID 0 Y Y STIMULATI [facility] NG HORMONE TSH RADEX 16880 WALTER CANDELARIA, SPINE 0 MEDICAL IVY N LUMBOSACR SERV AL 2/3 FOUNDATIO VIEWS COLLECTIO 01212 [facility] N VENOUS 0 Y Y BLOOD [facility] VENIPUNCT URE COMPREHEN 02840 [facility] SIVE 0 Y Y METABOLIC [facility] PANEL BLOOD 54295 [facility] COUNT 0 Y Y COMPLETE [facility] AUTOMATED CYANOCOBA 10426 [facility] LEATHA 0 Y Y VITAMIN [facility] B-12 Encounters Encounter Start End Date Code Location Performer Type Date [facility] - 7 7 [facility] EM[facility]GENC[facility] 38165 7 7 [facility] DEPARTMEN E T VISIT HOSPITALS HIGH/URGE NT SEVERITY OFFICE 74793 [facility] OUTPATIEN 7 7 [facility] 30 CLINIC MINUTES [facility] 13250 MIKEY HOLT DEPT 7 7 PHYS[facility]& THREAT [facility] - 7 7 [facility] EMERGENCY 78215 MIKEY ANTONIO DEPT 7 7 PHYSICIAN U VISIT S, PLL HIGH SEVERITY& THREAT FUNJ OFFICE 18596 YARELI BOLTON OUTPATIEN 7 7 [facility] 15 MINUTES OFFICE 18415 WALTER YA OUTPATIEN 6 6 MEDICAL T VISIT SERV 25 FOUNDATIO MINUTES [facility] R[facility] - 5 5 [facility] T OFFICE 57091 [facility] PHILLIPS [facility]PATI[facility] 5 [facility] MINUTES [facility] - 5 5 [facility] OUTPATIEN INC T OFFICE 74278 [facility] OUTPATIEN 5 5 [facility] T VISIT INC 10 MINUTES [facility] - 5 5 [facility] T OFFICE 18871 R[facility] NEVIN OUTPATIEN 5 5 [facility] HOSPITAL MINUTES [facility] - 5 5 [facility] T EMERGENCY 05624 [facility] YANET 5 5 [facility] T VISIT MODERATE SEVERITY [facility]OSPITAL R[facility] - 3 3 [facility] OUTPATIEN INC T Inpatient IMP Richy Patterson MD (IN) 3 12:43 3 17:10 [facility] OFFICE 06541 GIVEN CUR GIVEN CUR OUTPATIEN 2 2 T [facility] RICHY - 2 2 [facility] OUTPATIEN INC T OFFICE 59176 [facility] 0 0 [facility] VISIT MEDICINE 15 P MINUTES OFFICE 10950 MÓNICA PEREZ 0 0 [facility] T VISIT SERV 15 FOUNDATIO [facility] UNIVERSIT - 0 0 Y [facility] UNIVERSIT - 0 0 Y [facility] T OFFICE 76769 MÓNICA PEREZ 0 0 [facility] [place] [facility] T VISIT SERV 15 FOUNDATIO MINUTES OFFICE 44610 MÓNICA PEREZ 9 9 [facility] [place] [facility] T NEW 45 SERV MINUTES FOUNDATIO
--- OUTSIDE RECORDS SUMMARY | 2016-12-24 08:41 | External Medical Summary Rpt ---
Author Author , LINDSAY MONTOYA Address Unknown Phone [email or web address] Care Team Providers Care Teleprinter Name Role Phone PHILLIPS LUZ, PHILLIPS Unavailable Unavailable LUZ VIKY FRA, VIKY Unavailable Unavailable FRA BEINEKE, BEINEKE Unavailable Unavailable CHE, CHE Unavailable Unavailable CHE KRYSTAL, Unavailable Unavailable CHE KRYSTAL REYNOLDS ALL, REYNOLDS ALL Unavailable Unavailable BRAUDIS, BRAUDIS Unavailable Unavailable BRAUDIS, BRAUDIS Unavailable Unavailable BRAUDIS JAM, BRAUDIS Unavailable Unavailable JAM BRAUDIS JAM, BRAUDIS Unavailable Unavailable JAM [facility] Unavailable Unavailable SERVICE, [facility] Unavailable Unavailable SERVICE, [facility] Unavailable Unavailable [place], [...] Unavailable GIVEN CUR, GIVEN CUR Unavailable Unavailable [facility] Unavailable Unavailable INC, [facility] Un[facility] Un[facility] P, [facility], Unavailable Unavailable [facility] OTIS [facility]ERG Unavailable Unavailable ALEC VIRK, ALEC VIRK Unavailable Unavailable ILDA, [facility] Unavailable Unavailable [facility], [facility] Un[facility] Unavailable [facility], [facility] Un[facility], [facility], [facility] Unavailable Unavailable 11, [facility] 11 [facility] Unavailable Unavailable ACTION, [facility] MCKEMIE JR YO, Unavailable Unavailable MCKEMIE JR YO [facility] Unavailable Unavailable [facility], Unavailable Unavailable [facility], Unavailable Unavailable PLLC, [facility] LAURA, MALACHI A, Unavailable Unavailable LAURA, MALACHI A WANDER TOD, WANDER TOD Unavailable Unavailable SCIFRES ANG, SCIFRES Unavailable Unavailable ANG SCIFRES ANG, SCIFRES Unavailable Unavailable ANG LUCY JUAREZ, SHAENDIY Unavailable Unavailable ANN MOISE, JOSE MARIA Unavailable Unavailable CANDELARIA, IVY N, Unavailable Unavailable CANDELARIA, IVY N [facility] Unavailable Unavailable EQU[facility], [facility] Unavailable Unavailable [facility], [facility] SOTINGEANU, Unavailable Unavailable SOTINGEANU ANDRE, Unavailable Unavailable ANDRE Clinton Patterson MD, Unavailable Unavailable Clinton Patterson MD [facility] Unavailable Unavailable HOSPITALS, [facility], Unavailable Unavailable [facility] MCCORD BHAKTI, MCCORD BHAKTI Unavailable Unavailable WEHRMAN III YO, Unavailable Unavailable WEHRMAN III YO Purpose Continuity of Care Document - 12-26-2008 through 2016 Problems Code Diagnosis DOS Provider Status E1165 TYPE 2 10-24-2016 [facility] [place]PER[place]YCEM [place] E785 HYPERLIPIDE 10-24-2016 [facility] UNSPECIFIED HOSPITALS I10 ESSENTIAL 10-24-2016 [facility] N I129 HYPERTENSIV 10-24-2016 [facility] E CKD [facility]ALTHCARE W/STAGE 1-4 HOSPITALS CKD OR UNS CKD N189 CHRONIC 10-24-2016 [facility] UNSPECIFIED Z8673 PERSONAL HX 10-24-2016 [facility]B H[facility]PITALS INFARCT NO RESID DEFICIT E118 TYPE 2 09-24-2016 [facility] DI[facility]ETES [facility], MELLITUS PLLC W/UNS COMPLICATIO NS 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 [facility] 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[facility], 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 N289 DISORDER OF 09-24-2016 [facility] KIDNEY [facility], URETER PLLC UNSPECIFIED R4182 ALTERED 09-24-2016 [facility] M[facility]AL [facility], STATUS PLLC UNSPECIFIED R5383 OTHER 09-24-2016 [facility] I4891 UNSPECIFIED 09-22-2016 [facility] ATRIAL HEART FIBRILLATIO N R748 ABNORMAL 09-22-2016 [facility] LEVELS OF HEART OTHER SERUM ENZYMES I214 NON-ST 09-21-2016 [facility] ELEVATION PHYSICIANS MYOCARDIAL GROUP INFARCTION T36807 ASHD [place] 09-21-2016 [facility] COR ART PHYSICIANS W/UNSTABLE GROUP ANGINA PECTORIS I495 SICK SINUS 09-21-2016 [facility] SYNDROME PHYSICIANS GROUP N183 CHRONIC 09-21-2016 [facility] KIDNEY PHYSICIANS DISEASE GROUP STAGE 3 MODERATE U32440 HEMIPLEGIA 09-20-2016 [facility] FLW PHYSICIANS CEREBRAL GROUP INFARCT AFFCT UNS SIDE 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 [facility] OSIS OF PHYSICIANS RENAL GROUP ARTERY [id number] ENCOUNTER 09-20-2016 [facility] FOR OTHER PHYSICIANS PREPROCEDUR GROUP AL EXAMINATION E1122 TYPE 2 09-19-2016 [facility] DIABETES [facility] MELLITUS INC W/DIAB CHRON KIDNEY DZ 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[facility] 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 N38228 HEMIPLEGIA 09-19-2016 [facility] FLW [facility] CEREBRAL INC INFARCT AFF RT DOM SIDE N390 URINARY 09-19-2016 [facility] TRACT [facility] INFECTION INC SITE NOT SPECIFIED R0602 SHORTNESS 09-19-2016 [facility] OF BREATH PHYSICIANS, PLLC R079 CHEST PAIN 09-19-2016 [facility] UNSPECIFIED AMBULANCE SERVICE R7989 OTHER SPEC 09-19-2016 [facility] ASS BLOOD CHEMISTRY E119 TYPE 2 09-15-2016 [facility] DIABETES HOME MELLITUS MEDICAL WITHOUT EQUIPME COMPLICATIO NS B351 TINEA 09-07-2016 BRAUDIS UNGUIUM E1151 TYPE 2 DM 09-07-2016 B[facility]IS W/DIAB 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 E01033 PAIN IN 09-07-2016 [facility] RIGHT TOES Q20676 PAIN IN 09-07-2016 [facility] LEFT TOES R600 LOCALIZED 09-07-2016 [facility] EDEMA H1789 OTHER 07-11-2016 [facility] OPACITIES R69 ILLNESS 07-11-2016 [facility] UNSPECIFIED TRANSPORTAT ION SER [id number] FOREIGN 05-27-2016 [facility] CORNEA UNS INSTITUTE EYE INITIAL ENCOUNTER Z961 PRESENCE OF 05-27-2016 [facility] INTRAOCULAR INSTITUTE LENS A45108 PAIN IN 01-22-2016 [facility] LEFT THIGH MOBILE DIAGNOSTIC SE R7611 NONSPECIFIC 12-30-2015 EXPRESS RXN MOBILE TUBERCULIN DIAGNOSTIC SKIN TEST SE W/O ACT TB N250 RENAL 10-05-2015 [facility] OSTEODYSTRO SERV PHY [facility] Z794 PEDIATRIC CARE COORDINATOR 10-05-2015 [facility] CURRENT USE SERV OF INSULIN [facility] H2513 AGE-RELATED 07-03-2015 SCIFRES ANG NUCLEAR CATARACT BILATERAL T16155 PUPILLARY 04-28-2015 [facility] ABNORMALITY [facility] LEFT EYE INC P85850 COMBINED 04-28-2015 CHE FORMS OF 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 LEFT EYE H269 UNSPECIFIED 04-28-2015 [facility] CATARACT [facility] INC H5703 MIOSIS 04-28-2015 CHE KRYSTAL N3941 URGE 04-21-2015 [facility] P 2859 UNSPECIFIED 02-25-2015 [facility] ANEMIA [facility] INC 54163 02-25-2015 [facility] TRANSPORTAT ION SER 2410 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 [place] [facility]INODULAR [facility] GOITER [facility] 38188 DIAB W/O 02-17-2015 [place] COMP TYPE [facility] II/UNS NOT INC STATED UNCNTRL 2558 OTHER 02-17-2015 [place] SPECIFIED MEDICAL DISORDERS IMAGING ASS OF [place] 33432 UNSPEC 02-17-2015 [place] VENTRAL MEDICAL NIMO W/O IMAGING ASS MENTION OBST/GANGRE N 5932 ACQUIRED 02-17-2015 [place] CYST OF MEDICAL KIDNEY IMAGING ASS 60363 NONSPEC 12-25-2014 EXPRESS REACT MOBILE TUBERCULIN DIAGNOSTIC [place] W/[place] [address] OTHER ACUTE 09-19-2014 [facility] PAIN PHYSICIANS GROUP 7062 SEBACEOUS 09-19-2014 [facility] CYST PHYSICIANS GROUP 7820 DISTURBANCE 09-19-2014 [facility] OF SKIN PHYSICIANS SENSATION GROUP V154 PERS HX 09-17-2014 [facility]PT FOR PSYCHOLOGIC PUBLIC HLTH AL TRAUMA PRS [facility] 4739 UNSPECIFIED 07-04-2014 [facility] 7813 LACK OF 07-04-2014 [place] COORDINATIO [facility]ICAL N IMAGING ASS 76344 DIAB W/O 07-03-2014 [facility] COMP TYPE HOSPITAL P II/UNS TYPE UNCNTRL 4019 UNSPECIFIED 07-03-2014 [facility] ESSENTIAL [facility] P N 18581 MUSCLE 07-03-2014 [facility] WEAKNESS [facility] P D) 89497 OTHER 07-03-2014 [facility] MALAISE AND [facility] P 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 98625 DIAB 06-28-2013 ALEXIA MEADE W/PERIPH CIRC D/O TYPE II/UNS NOT UNCNTRL 7011 ACQUIRED 06-28-2013 ALEXIA MEADE KERATODERMA 7295 PAIN IN 06-28-2013 ALEXIA MEADE SOFT TISSUES OF LIMB 7823 EDEMA 06-28-2013 ALEXIA MEADE 5853 CHRONIC 04-15-2013 [place] KIDNEY [facility] DISEASE INC STAGE III (MODERATE) 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 7533 OTHER 04-15-2013 [facility] SPECIFIED MARTIN CONGENITAL ANOMALIES OF KIDNEY 33147 DEHYDRATION 01-03-2013 SIGRID MONTENEGRO YO 2767 HYPERPOTASS 01-03-2013 SIGRID MONTENEGRO EMIA YO 3319 UNSPECIFIED 01-02-2013 [facility] CEREBRAL MARTIN DEGENERATIO N 514 PULMONARY 12-04-2012 EXPRESS CONGESTION [place] [address] SHORTNESS 12-04-2012 [place] [address] UNSPECIFIED 04-30-2012 GIVEN CUR CEREBRAL ARTERY OCCLUSION W/INFARCT 25560 OCCL&STENOS 04-05-2012 GI[facility]NA MX&BILAT MARTIN PRECERBRL ART W/O INFARCT 96844 UNSPEC 04-04-2012 [place] CERBRL ART MEDICAL OCCLUSION IMAGING ASS W/O MENTION INFARCT 4370 CEREBRAL 04-04-2012 [place] ATHEROSCLER MEDICAL OSIS IMAGING ASS 4371 OTH 04-04-2012 [place] GENERALIZED MEDICAL ISCHEMIC IMAGING ASS CEREBROVASC ULAR DISEASE V5869 LONG-TERM 01-18-2012 COMBINED (CURRENT) PHYSICIANS USE OF [place] OTHER MEDICATIONS 35773 OSTEOARTHRO 12-16-2011 [place] [facility] S[facility] UNSPEC SERV WHETHER FOUNDATIO GEN/LOC LOWER LEG 38637 PAIN IN 12-16-2011 [place] [facility] JOINT, SERV LOWER LEG FOUNDAT[facility] 56803 EXOSTOSIS 12-16-2011 [place] [facility] OF SERV UNSPECIFIED FOUNDATIO SITE 10199 MEMORY LOSS 08-21-2009 [facility] V1254 PERSONAL HX 08-21-2009 [facility] W/O RESIDUAL DEFICITS 4409 GENERALIZED 07-17-2009 [facility] UNSPECIFIED ATHEROSCLER OSIS 7213 LUMBOSACRAL 07-17-2009 [facility] 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 7242 LUMBAGO 07-17-2009 [facility] 27200 ALTERED 07-17-2009 [place] [facility] STATUS [facility] 2724 OTHER AND 12-26-2008 [facility] UNSPECIFIED SERV [facility] HYPERLIPIDE PAT 276.7 Hyperkalemi [facility] 586 Uremia [facility] 780.93 Memory [facility] E11.9 TYPE 2 DIABETES MELLITUS WITHOUT COMPLICATIO NS I25.10 ATHSCL HEART DISEASE OF [place] CORONARY ARTERY W/O ANG PCTRS I48.91 UNSPECIFIED [...] 90 -2 -2 .0 00 D ti DE 40 4- 3- 00 14 CA ve [...] 90 -2 -0 .0 00 D ti DE 40 7- 2- 00 14 CA ve [...] 90 -3 -0 .0 00 D ti DE 40 1- 5- 00 13 CA ve [...] 90 -0 -0 .0 00 D ti DE 40 3- 7- 00 13 CA ve [...] 90 -0 -1 .0 00 D ti DE 40 3- 0- 00 13 CA ve [...] 90 -0 -1 .0 00 D ti DE 40 5- 0- 00 13 CA ve [...] 90 -0 -0 .0 00 D ti DE 40 7- 9- 00 13 CA ve [...] SerPl-m 16:17 E L Cnc Glucose dC Glucomtr-[facility] (01-04-2013 11:50) Glucose 120 70-110 complet BldC [...] 1 ed SerPl-m 07:30 Cnc Glucose dC Glucomtr-[facility] (01-04-2013 06:11) Glucose 105 70-110 complet BldC 013 mg/dl ed Glucomt 06:11 r-[facility] Glucose dC Glucomtr-[facility] (01-03-2013 20:12) Glucose 07-18-2 147 70-110 complet BldC 013 mg/dl ed Glucomt 20:12 r-[facility] Glucose dC Glucomtr-[facility] (01-03-2013 17:03) Glucose 01-03-2 199 70-110 complet BldC 013 mg/dl ed Glucomt 17:03 r-[facility] Glucose dC Glucomtr-[facility] (01-03-2013 11:29) Glucose 01-03-2 133 70-110 complet BldC 013 mg/dl ed Glucomt 11:29 r-[facility] BASIC METABOLIC PANEL (01-03-2013 06:30) Glucose 01-03-2 [...] 1 ed SerPl-m 06:30 Cnc Glucose dC Glucomtr-[facility] (01-03-2013 06:30) Glucose 01-03-2 111 70-110 complet BldC 013 mg/dl [facility] (01-02-2013 21:10) Glucose 01-02-2 238 70-110 complet BldC 013 mg/dl ed Glucomt 21:10 r-[facility] Ammonia Plas-sCnc (01-02-2013 18:08) Ammonia -17-2 3 11-32 complet 013 umoL/L ed Plas-sC 18:08 nc Glucose BldC Glucomtr-[facility] (01-02-2013 16:53) Glucose 07-17-2 111 70-110 complet BldC 013 mg/dl ed [facility]INAL[facility]/COMPLETE (01-02-2013 12:50) URINE 07-17-2 YELLOW YELLOW [...] Procedure DOS Code Location Performer Comment KETONE 86890 [facility] BODIES 7 [facility] SERUM E E QUANTITAT [facility] ALIREZA GLUC BLD 11380 [facility] GLUC MNTR 7 [place] [place] [facility] CLEARED PSC FDA SPEC HOME USE HEMOGLOBI 66817 [facility] N 7 [facility] [place] [facility] KEN A1C PSC GASES 33087 [facility] BLOOD PH 7 [facility] HEALTH[facility] DIRECT E E LISETTE XCPT [facility] [place] [address] [facility] LACTATE 7 [facility] HEALTHCAR E E HOSPITALS HOSPITALS COMPREHEN 75349 [facility] SIVE 7 [facility]ALTH[facility] METABOLIC E E PANEL [facility] RADIOLOGI 40631 [facility] C EXAM 7 [facility]ALTH[facility] HEALTHCAR CHEST 2 E E VIEWS [facility] FRONTAL&L ATERAL BLOOD 10513 [facility] COUNT 7 [facility]ALTH[facility] HEALTHCAR COMPLETE E E AUTOMATED [facility] RADIOLOGI 63357 CLEMENTEKelly JENAE C 7 MEDICAL EXAMINATI IMAGING ON CHEST ASS SINGLE VIEW FRONTAL GROUND A0425 [facility] MILEAGE 7 AMBULANCE AMBULANCE PER SERVICE SERVICE STATUTE MILE AMB A0427 [facility] SERVICE 7 AMBULANCE AMBULANCE ALS SERVICE SERVICE [place] [address] YARELI HEREDIA HEAD/BRAI 7 MEDICAL N W/O IMAGING CONTRAST ASS [facility] [address] DAY HEART MANAGEMEN T > 30 MIN SBSQ 56647 [place] [address] PHYSICIAN CARE/DAY S GROUP 25 MINUTES GROUND A0425 [facility] AMBULANCE PER SERVICE SERVICE STATUTE MILE INITIAL [address] CARE/DAY HEART 50 [place] [address] [facility] TRLUML 7 PHYSICIAN CORONARY S GROUP STENT W/ANGIO ONE ART/BRNCH AMB A0426 [facility] AMBULANCE AMBULANCE ALS SERVICE SERVICE NONEMERGE NCY TRANSPORT LEVEL 1 SBSQ 38912 [place] [address] PHYSICIAN CARE/DAY S GROUP 15 MINUTES FLUORO [id number] [facility] GARZA 7 [facility] CORONARY INC INC ARTERIES LOW OSMOLAR CONT FLUOROSCO [id number] R[facility] LOCKHART PY LEFT 7 [facility] HEART LOW INC INC OSMOLAR CONTRAST FLUORO [id number] R[facility]Y LOCKHART BILATERAL 7 [facility] RENAL INC INC ART LOW OSMOLAR CONTRST FLUORO LT [id number] RICHY LOCKHART 7 [facility] SUBCLAVIA INC INC N ARTERY LOW OSMOLAR CONTRAST MEASUREME [id number] RICHY ECHEVARRIAON NT 7 [facility] CARDIAC INC INC 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 LT HEART PERQ SLCTV 18857 [facility] JOSE MARIA CATH 7 PHYSICIAN SUBCLAVIA S GROUP N ART ANGIO VERTEBRAL ARTERY CATH PLMT 46190 [facility] L HRT & 7 PHYSICIAN PHYSICIAN ARTS S GROUP S GROUP W/NJX & ANGIO IMG S&I SLCTV 23524 [facility] JOSE MARIA CATH 7 PHYSICIAN 1STORD S GROUP W/WO ART PUNCT/FLU OR/S&I ELLY AMB A0427 [facility] SERVICE 7 AMBULANCE AMBULANCE ALS SERVICE SERVICE EMERGENCY TRANSPORT LEVEL [address] [facility] MILEA 7 AMBULANCE AMBULANCE PER SERVICE SERVICE STATUTE MILE RADIOLOGI 49597 [facility] C EXAM 7 MEDICAL CHEST 2 IMAGING VIEWS ASS FRONTAL&L ATERAL INITIAL 18201 [facility] 7 PHYSICIAN A CARE/DAY S GROUP 70 MINUTES DUPLEX 47807 [facility] MEDICAL EXTRACRAN IMAGING IAL ART ASS COMPL BI STUDY PULMONARY 47920 [facility] 7 MEDICAL VENTILATI IMAGING ON & ASS PERFUSION IMAGING BLD GLU A4253 NAKUL MOTA TEST/REAG 7 HOME HOME T STRIPS MEDICAL MEDICAL HOME BLD EQUIPME EQUIPME GLU MON-50 LANCETS A4259 NAKUL MOTA PER BOX 7 HOME HOME OF 100 MEDICAL MEDICAL EQUIPME [place]QUIP[place] [address] ALEXIA HALE TTING 7 BENIGN HYPERKERA TOTIC LESION 1 DEBRIDEME 76830 ALEXIA HALE NT NAIL 7 ANY METHOD 6/> NONEMERG A0120 [facility] FEDERATED TRNSPRT: 7 [facility] TRANSPORT TRANSPORT MTN ATION SER ATION SER AREA/OTH SYS NONEMERG A0120 [facility] FEDERATED TRNSPRT: 6 [facility] TRANSPORT TRANSPORT MTN ATION SER ATION SER AREA/OTH SYS OPHTH 48750 [facility] 6 EYE XM&EVAL INSTITUTE INTERMEDI ATE ESTAB PT NONEMERG A0120 [facility] FEDERATED TRNSPRT: 6 [facility] TRANSPORT TRANSPORT MTN ATION SER ATION SER AREA/OTH SYS NONEMERG A0120 [facility] FEDERATED TRNSPRT: 6 [facility] TRANSPORT TRANSPORT MTN ATION SER ATION SER AREA/OTH SYS DEBRIDEME 36557 BRAGERSONS BRAUDIS NT NAIL 6 ANY METHOD 6/> PARING/CU 84752 ALEXIA TURNERS TTING 6 BENIGN HYPERKERA TOTIC LESION 2-4 RADIOLOGI 99530 EXPRESS SHASHY C 6 MOBILE ANN EXAMINATI DIAGNOSTI ON FEMUR C SE MINIMUM 2 VIEWS DEBRIDEME 15494 JOHNNYS MARJORIEUDIS NT NAIL 6 JAM JAM ANY METHOD 6/> RADIOLOGI 37619 [facility] EXPRESS C EXAM 6 MOBILE MOBILE CHEST 2 DIAGNOSTI DIAGNOSTI VIEWS C SE C SE FRONTAL&L ATERAL NONEMERG A0120 [facility] FEDERATED TRNSPRT: 6 [facility] TRANSPORT TRANSPORT MTN ATION SER ATION SER AREA/OTH SYS DEBRIDEME 74468 MARJORIEGERSONS BRAUDIS NT NAIL 6 JAM JAM [...] [employer] FORMD PRFAB EA OPHTH 54162 SCIFRES SCIFRES MEDICAL 6 ANG ANG XM&EVAL [...] HOME BLD EQUIPME [place]QUIP[place]U MON-50 [place] [address] R[facility]Y ECHEVARRIAON INFUSION 5 [facility] THERAPY INC INC PROPHYLAX IS/DX EA HOUR XCAPSULAR 16761 R[facility] ECHEVARRIAON CATARACT 5 [facility] H[facility]OS[facility] RMVL INC INC INSJ LENS PROSTH 1 STG NONEMERG A0120 [facility] FEDERATED TRNSPRT: 5 [facility] TRANSPORT TRANSPORT MTN ATION [place] AT[place] SER AREA/[place] [address] RICHY ECHEVARRIAON INFUSION 5 MEM HOSP MEM [...] ATION SER ATION SER AREA/[place] [address] [facility] ALL ABDOMEN & 5 MEDICAL PELVIS IMAGING W/O ASS CONTRAST MATERIAL CT THORAX 26232 RICHY LOCKHART W/O 5 MEM H[facility]OS[facility] CONTRAST INC INC MATERIAL NONEMERG A0120 FEDERATED FEDERATED TRNSPRT: 5 MINI-BUS TRANSPORT TRANSPORT MTN ATION SER ATION SER [facility]/OTH SYS RADIOLOGI 08806 [facility] EXPRESS C EXAM 5 MOBILE MOBILE CHEST 2 DIAGNOSTI DIAGNOSTI VIEWS C SE C SE FRONTAL&L ATERAL LANCETS A4259 NAKUL HUERTASRELL PER BOX 5 HOME HOME OF 100 MEDICAL MEDICAL EQUIPME EQUIPME BLD GLU A4253 NAKLU NAKUL TEST/REAG 5 HOME HOME T STRIPS MEDICAL MEDICAL HOME BLD EQUIPME EQUIPME GLU MON-50 NONEMERG A0120 FEDERATED FEDERATED TRNSPRT: 5 MINI-BUS TRANSPORT TRANSPORT MTN ATION SER ATION SER [facility]/OTH SYS NONEMERG A0120 FEDERATED FEDERATED TRNSPRT: 5 MINI-BUS TRANSPORT TRANSPORT MTN ATION SER ATION SER [facility]/OTH SYS EXC B9 66249 [facility] WANDER TOD LESION 5 PHYSICIAN MRGN XCP S GROUP SK TG T/A/L 2.1-3.0 CM REPAIR 08587 RICHY LOCKHART INTERMEDI 5 [facility] H[facility] ATE INC INC S/A/T/E 2.6-7.5 CM NONEMERG A0120 FEDERATED FEDERATED TRNSPRT: 5 [facility] TRANSPORT TRANSPORT MTN ATION SER ATION SER [facility]/[place] [address] [place] HEAD/BRAI 5 MEDICAL MARTIN N W/O [...] HOME BLD EQUIPME EQUIPME GLU MON-50 PARING/CU 79123 ALEXIA HALE TTING 4 JAM JAM BENIGN HYPERKERA TOTIC LESION 1 DEBRIDEME 43722 ALEXIA HALE NT NAIL 4 JAM JAM ANY METHOD 6/> BLD GLU A4253 NAKUL NAKUL TEST/REAG 3 HOME HOME T STRIPS MEDICAL MEDICAL HOME BLD EQUIPME EQUIPME GLU MON-50 LANCETS A4259 NAKUL NAKUL PER BOX 3 HOME HOME OF 100 [place] [address] GIOV[place] GIOVANNA ABDOMINAL 3 MARTIN MARTIN REAL TIME W/[place] [address] RICHY ECHEVARRIAON RETROPERI 3 MEM HOS[facility] MEM HOS[facility] TONEAL INC INC REAL TIME W/IMAGE COMPLETE NONEMERG A0120 LKLP CAC LKLP CAC TRNSPRT: 3 INC INC MINI-BUS REGION 11 REGION 11 [facility] AREA/OTH SYS LANCETS A4259 NAKUL NAKUL PER BOX 3 HOME HOME OF 100 MEDICAL MEDICAL EQUIPME EQUIPME BLD GLU A4253 NAKUL NAKUL TEST/REAG 3 HOME HOME T STRIPS MEDICAL MEDICAL HOME BLD EQUIPME EQUIPME GLU MON-50 RADIOLOGI 68028 [facility] EXPRESS C EXAM 3 MOBILE MOBILE CHEST 2 DIAGNOSTI DIAGNOSTI VIEWS C SE C SE FRONTAL&[facility] 37059 MCKEMIE MCKEMIE DISCHARGE 3 JR YO JR YO DAY MANAGEMEN T 30 MIN/< ECG 86251 KIERSTEN BURCH ROUTINE 3 III YO III YO ECG W/LEAST 12 LDS I&[place] [address] GIOVANNA GIOVANNA HEAD/BRAI 3 MARTIN MARTIN N W/O CONTRAST MATERIAL RADIOLOGI 33796 [facility] EXPRESS C EXAM 3 MOBILE MOBILE CHEST 2 DIAGNOSTI DIAGNOSTI VIEWS C SE C SE FRONTAL&L ATERAL BLD GLU A4253 NAKUL HUERTASRELL TEST/REAG 3 HOME HOME T [facility]IPS MEDICAL MEDICAL HOME BLD EQUIPME EQUIPME GLU MON-50 NONEMERG A0120 [facility] TRNSPRT: 2 [facility] MINI-BUS ACTION ACTION MTN AREA/OTH SYS NONEMERG A0120 [facility] TRNSPRT: 2 [facility] MINI-BUS ACTION ACTION MTN AREA/OTH SYS MRA NECK 36380 GIOVANNA PERRYUTCHER W/O 2 MARTIN MARTIN CONTRST MATERIAL MRI BRAIN 07561 RICHY LOCKHART BRAIN 2 [facility] STEM W/O INC INC CONTRAST MATERIAL MRI BRAIN 60227 [place] GI[place] BRAIN 2 MEDICAL MARTIN STEM W/O IMAGING CONTRAST ASS MATERIAL MRA HEAD 34489 [place] GIOVANNA W/O 2 MEDICAL MARTIN CONTRST IMAGING MATERIAL ASS NONEMERG A0120 [facility] TRNSPRT[facility] 2 [facility] ACTION ACTION MTN AREA/OTH SYS NONEMERG A0120 [facility] TRNSPRT: 2 [facility] ACTION ACTION MTN AREA/OTH SYS HEMOGLOBI 45000 COMBINED COMBINED N 2 PHYSICIAN PHYSICIAN GLYCOSYLA S LA S LA KEN A1C LIPID 60637 COMBINED COMBINED PANEL 2 PHYSICIAN PHYSICIAN S LA S LA BLOOD 69804 COMBINED COMBINED COUNT 2 PHYSICIAN PHYSICIAN COMPLETE S LA S LA AUTO&AUTO DIFRNTL WBC COMPREHEN 48383 COMBINED COMBINED SIVE 2 PHYSICIAN PHYSICIAN METABOLIC S LA S LA PANEL RADIOLOGI 48233 [place] VIKY C 2 MEDICAL FRA EXAMINATI SERV ON KNEE FOUNDATIO 1/2 VIEWS MRI BRAIN 23861 [facility] BRAIN 0 Y Y STEM W/[place] [facility] [place] [address] [facility] THYROID 0 Y Y STIMULATI [facility] NG HORMONE TSH RADEX 84670 WALTER CANDELARIA, SPINE 0 MEDICAL IVY N LUMBOSACR SERV AL 2/3 FOUNDATIO VIEWS COLLECTIO 97597 [facility] N VENOUS 0 Y Y BLOOD [facility] VENIPUNCT URE COMPREHEN 16379 [facility] SIVE 0 Y Y METABOLIC [facility] PANEL BLOOD 39567 [facility] COUNT 0 Y Y COMPLETE [facility] AUTOMATED CYANOCOBA 71951 [facility] LEATHA 0 Y Y VITAMIN [facility] B-12 Encounters Encounter Start End Date Code Location Performer Type Date [facility] - 7 7 [facility] EM[facility]ENC[facility] [id number] 7 7 [facility] DEPARTMEN E T VISIT HOSPITALS HIGH/URGE NT SEVERITY OFFICE 00650 [facility] OUTPATIEN 7 7 [facility] 30 CLINIC MINUTES [facility] EMERGENCY 05866 MIKEY HOLT DEPT 7 7 PHYSICIAN VISIT S, [facility] SE[facility]& THREAT [facility]ICH[facility] - 7 7 [facility] [place] EMERGENCY 12639 MIKEY ANTONIO DEPT 7 7 PHYSICIAN U VISIT S, PLL HIGH SEVERITY& THREAT FUNJ OFFICE 28005 YARELI BOLTON OUTPATIEN 7 7 [facility] 15 MINUTES OFFICE 25718 WALETR YA OUTPATIEN 6 6 MEDICAL T VISIT SERV 25 FOUNDATIO MINUTES [facility] RICHY - 5 5 [facility] OUTPATIEN INC T OFFICE 92503 RICHY PHILLIPS OUTPATIEN 5 5 [facility] 20 HOSPITAL MINUTES [facility] RICHY - 5 5 [facility] OUTPATIEN INC T OFFICE [id number] [facility] 5 [facility] T OFFICE [id number] [facility] NEVIN OUTPATIEN 5 5 [facility] MINUTES [facility]OS[facility] - 5 5 [facility] T EMERGENCY [id number] [facility] YNAET 5 5 [facility] T VISIT MODERATE SEVERITY [facility]OSPITAL [facility] - 3 3 [facility] T Inpatient IMP Richy Patterson MD (IN) 3 12:43 3 17:10 [facility] OFFICE [id number] GIVEN CUR GIVEN CUR OUTPATIEN 2 2 T [facility] - 2 2 [facility] T OFFICE [id number] [facility] 0 0 [facility] VISIT MEDICINE 15 P MINUT[facility] OFFICE [id number] MÓNICA PEREZ 0 0 [facility] V[facility] SERV 15 [facility] UN[facility] - 0 0 Y [facility] UN[facility] - 0 0 Y [facility] T OFFICE [id number] MÓNICA PEREZ 0 0 [facility] T VISIT SERV 15 [facility] MINUTES OFFICE 69227 MÓNICA PEREZ 9 9 [facility] T NEW 45 SERV MINUTES [facility]OUNDATIO
--- OUTSIDE RECORDS SUMMARY | 2016-12-24 08:45 | External Medical Summary Rpt ---
Author Author , LINDSAY Organization LINDSAY Address Unknown Phone [email or web address] Care Team Providers Care Pulp Mill Supervisor Name Role Phone PHILLIPS LUZ, PHILLIPS Unavailable Unavailable LUZ VIKY FRA, VIKY Unavailable Unavailable FRA BEINEKE, BEINEKE Unavailable Unavailable CHE, CHE Unavailable Unavailable CHE KRYSTAL, Unavailable Unavailable CHE KRYSTAL REYNOLDS ALL, REYNOLDS ALL Unavailable Unavailable BRAUDIS, BRAUDIS Unavailable Unavailable BRAUDIS, BRAUDIS Unavailable Unavailable BRAUDIS JAM, BRAUDIS Unavailable Unavailable JAM BRAUDIS JAM, BRAUDIS Unavailable Unavailable JAM [facility] Unavailable Unavailable SERVICE, [facility] Unavailable Unavailable SERVICE, [facility] Unavailable Unavailable [place], [...] Unavailable [facility] Un[facility] Un[facility], [facility] Unavailable Unavailable HOSPITAL P, [facility], Unavailable Unavailable [facility] OTIS BERG Unavailable Unavailable ALEC MCMULLEN Unavailable Unavailable ILDA, ILDA Unavailable Unavailable [facility], [facility] Unavailable Unavailable [facility], [facility] Un[facility], [facility], [facility] Unavailable Unavailable 11, [facility] 11 [facility] Unavailable Unavailable ACTION, [facility] MCKEMIE YO, Unavailable Unavailable MCJOSIEMIE YO [facility] Unavailable Unavailable [facility], Unavailable Unavailable [facility], Unavailable Unavailable PLL[facility], [facility] LAURA, MALACHI A, Unavailable Unavailable LAURA, MALACHI A WANDER TOD, WANDER TOD Unavailable Unavailable SCIFRES ANG, SCIFRES Unavailable Unavailable ANG SCIFRES ANG, SCIFRES Unavailable Unavailable ANG SHASHY ANN, SHASHY Unavailable Unavailable ANN JOSE MARIA, JOSE MARIA Unavailable Unavailable CANDELARIA, IVY N, Unavailable Unavailable CANDELARIA, IVY N [facility] Unavailable Unavailable [facility], [facility] Unavailable Unavailable [facility], [facility] SOTINGEANU, Unavailable Unavailable SOTINGEANU [facility], Unavailable Unavailable [facility], Unavailable Unavailable [facility] MCCORD BHAKTI, MCCORD BHAKTI Unavailable Unavailable WEHRMAN III YO, Unavailable Unavailable WEHRMAN III YO Purpose Continuity of Care Document - 12-26-2008 through 2016 Problems Code Diagnosis DOS Provider Status E1165 TYPE 2 10-24-2016 [facility] [place] E785 HYPERLIPIDE 10-24-2016 [facility] UNSPECIFIED HOSPITALS I10 ESSENTIAL 10-24-2016 [facility] N I129 HYPERTENSIV 10-24-2016 [facility] E CKD [facility]CARE W/STAGE 1-4 HOSPITALS CKD OR UNS CKD N189 CHRONIC 10-24-2016 [facility] UNSPECIFIED Z8673 PERSONAL HX 10-24-2016 [facility]PITALS INFARCT NO RESID DEFICIT E118 TYPE 2 09-24-2016 [facility], MELLITUS PLLC W/UNS COMPLICATIO NS 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-24-2016 [facility] CORONARY [facility], 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 N289 DISORDER OF 09-24-2016 [facility], URETER PLLC UNSPECIFIED R4182 ALTERED 09-24-2016 [facility]AL [facility], STATUS PLLC UNSPECIFIED R5383 OTHER 09-24-2016 [facility] I4891 UNSPECIFIED 09-22-2016 [facility] A[facility]IAL [facility]ART FIBRILLATIO N R748 ABNORMAL 09-22-2016 [facility] LEVELS OF HEART OTHER SERUM ENZYMES I214 NON-ST 09-21-2016 [facility] ELEVATION PHYSICIANS MYOCARDIAL GROUP INFARCTION Z71834 ASHD OUZINKIE 09-21-2016 [facility] COR ART PHYSICIANS W/UNSTABLE GROUP ANGINA PECTORIS I495 SICK SINUS 09-21-2016 [facility] SYNDROME PHYSICIANS GROUP N183 CHRONIC 09-21-2016 [facility] KIDNEY PHYSICIANS DISEASE GROUP STAGE 3 MODERATE X21751 HEMIPLEGIA 09-20-2016 [facility] FLW PHYSICIANS CEREBRAL GROUP INFARCT AFFCT UNS SIDE 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 [facility] OSIS OF PHYSICIANS RENAL GROUP ARTERY R90367 ENCOUNTER 09-20-2016 [facility] FOR OTHER PHYSICIANS PREPROCEDUR GROUP AL EXAMINATION E1122 TYPE 2 09-19-2016 [facility]ES [facility] MELLITUS INC W/DIAB CHRON KIDNEY DZ 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[place] [facility] 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 L87986 HEMIPLEGIA 09-19-2016 [facility] FLW [facility] CEREBRAL INC INFARCT AFF RT DOM SIDE N390 URINARY 09-19-2016 [facility] TRACT [facility] INFECTION INC SITE NOT SPECIFIED R0602 SHORTNESS 09-19-2016 [facility] OF BREATH PHYSICIANS, [facility] R079 CHEST PAIN 09-19-2016 [facility] UNSPECIFIED AMBULANCE SERVICE R7989 OTHER SPEC 09-19-2016 [facility] BLOOD CHEMISTRY E119 TYPE 2 09-15-2016 [facility] HOME MELLITUS MEDICAL WITHOUT EQUIPME COMPLICATIO NS B351 TINEA 09-07-2016 BRAUDIS UNGUIUM E1151 TYPE 2 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-07-2016 [facility] W/DIAB 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 S86287 PAIN IN 09-07-2016 [facility] RIGHT TOES K38623 PAIN IN 09-07-2016 [facility] LEFT TOES R600 LOCALIZED 09-07-2016 [facility] EDEMA H1789 OTHER 07-11-2016 [place] [facility] OPACITIES R69 ILLNESS 07-11-2016 [facility] UNSPECIFIED TRANSPORTAT ION SER S6443TO FOREIGN 05-27-2016 [place] [facility] IN EYE CORNEA UNS INSTITUTE EYE INITIAL ENCOUNTER Z961 PRESENCE OF 05-27-2016 [facility] LENS W33374 PAIN IN 01-22-2016 EXPRESS LEFT THIGH MOBILE DIAGNOSTIC SE R7611 NONSPECIFIC 12-30-2015 [facility] RXN MOBILE TUBERCULIN DIAGNOSTIC SKIN TEST SE W/O ACT TB N250 RENAL 10-05-2015 [place] [facility] OSTEODY[facility] SERV [facility] Z794 CORRECTION 10-05-2015 [place] [facility] CURRENT USE SERV OF INSULIN [facility] H2513 AGE-RELATED 07-03-2015 SCIFRES ANG NUCLEAR CATARACT BILATERAL A03201 PUPILLARY 04-28-2015 [facility] ABNORMALITY [facility] LEFT EYE INC M21745 COMBINED 04-28-2015 CHE FORMS OF 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 LEFT EYE H269 UNSPECIFIED 04-28-2015 [facility] CATARACT [facility] INC H5703 MIOSIS 04-28-2015 CHE KRYSTAL N3941 URGE 04-21-2015 [facility] P 2859 UNSPECIFIED 02-25-2015 [facility]IA [facility] INC 47041 02-25-2015 [facility] TRANSPORTAT ION SER 2410 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 [facility] UNINODULAR [facility] GOITER [facility] 49381 DIAB W/O 02-17-2015 [place] COMP TYPE [facility] II/UNS NOT INC STATED UNCNTRL 2558 OTHER 02-17-2015 [facility] SPECIFIED MEDICAL DISORDERS IMAGING ASS OF ADRENAL [place]S 19430 UNSPEC 02-17-2015 [facility] VENTRAL MEDICAL NIMO W/O IMAGING ASS MENTION OBST/GANGRE N 5932 ACQUIRED 02-17-2015 [facility] CYST OF MEDICAL KIDNEY IMAGING ASS 05065 NONSPEC 12-25-2014 EXPRESS REACT MOBILE TUBERCULIN DIAGNOSTIC [place] W/[place] [address] OTHER ACUTE 09-19-2014 [facility] PAIN PHYSICIANS GROUP 7062 SEBACEOUS 09-19-2014 [facility] CYST PHYSICIANS GROUP 7820 DISTURBANCE 09-19-2014 [facility] OF SKIN PHYSICIANS SENSATION GROUP V154 PERS HX 09-17-2014 DEPT FOR PSYCHOLOGIC PUBLIC HLTH AL TRAUMA PRS [facility] 4739 UNSPECIFIED 07-04-2014 [facility] 7813 LACK OF 07-04-2014 [facility] COORDINATIO [facility] N IMAGING ASS 62977 DIAB W/O 07-03-2014 [facility] P II/UNS TYPE UNCNTRL 4019 UNSPECIFIED 07-03-2014 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 29138 DIAB 06-28-2013 [facility] MEADE W/PERIPH CIRC D/O TYPE II/UNS NOT UNCNTRL 7011 ACQUIRED 06-28-2013 ALEXIA MEADE KERATODERMA 7295 PAIN IN 06-28-2013 ALEXIA MEADE SOFT TISSUES OF LIMB 7823 EDEMA 06-28-2013 A[facility] MEADE 5853 CHRONIC 04-15-2013 [place] [facility] DISEASE INC STAGE III (MODERATE) 60193 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 7533 OTHER 04-15-2013 [facility] SPECIFIED MARTIN CONGENITAL ANOMALIES OF KIDNEY 92748 DEHYDRATION 01-03-2013 SIGRID MONTENEGRO YO 2767 HYPERPOTASS 01-03-2013 SIGR[facility] MONTENEGRO EMIA YO 3319 UNSPECIFIED 01-02-2013 [facility] CEREBRAL MARTIN DEGENERATIO N 514 PULMONARY 12-04-2012 EXPRESS CONGESTION [place] [address] SHORTNESS 12-04-2012 [place] [address] UNSPECIFIED 04-30-2012 GIVEN CUR CEREBRAL ARTERY OCCLUSION W/INFARCT 83677 OCCL&STENOS 04-05-2012 GI[facility]NA MX&BILAT MARTIN PRECERBRL ART W/O INFARCT 24788 UNSPEC 04-04-2012 [facility] CERBRL ART MEDICAL OCCLUSION IMAGING ASS W/O MENTION INFARCT 4370 CEREBRAL 04-04-2012 [facility] ATHEROSCLER MEDICAL OSIS IMAGING ASS 4371 OTH 04-04-2012 [facility] GENERALIZED MEDICAL ISCHEMIC IMAGING ASS CEREBROVASC ULAR DISEASE V5869 LONG-TERM 01-18-2012 COMBINED (CURRENT) PHYSICIANS USE OF [place] OTHER MEDICATIONS 45894 OSTEOARTHRO 12-16-2011 [place] [facility] S[facility] UNSPEC SERV WHETHER FOUNDATIO GEN/LOC LOWER LEG 53246 PAIN IN 12-16-2011 [place] [facility] JOINT, SERV LOWER LEG FOUNDAT[facility] 76057 EXOSTOSIS 12-16-2011 [place] [facility] OF SERV UNSPECIFIED FOUNDATIO SITE 68802 MEMORY LOSS 08-21-2009 [facility] V1254 PERSONAL HX 08-21-2009 [facility] W/O RESIDUAL DEFICITS 4409 GENERALIZED 07-17-2009 [facility] UNSPECIFIED ATHEROSCLER OSIS 7213 LUMBOSACRAL 07-17-2009 [place] [facility] 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 7242 LUMBAGO 07-17-2009 [facility] 09665 ALTERED 07-17-2009 [place] [facility] M[facility] STATUS [facility] 2724 OTHER AND 12-26-2008 [place] [facility] U[place]PECIFIED SERV [facility] HYPERLIPIDE PAT Medications Na ND Rx Da Fi Fi Am Da Di Ph RX Ph St me C No te ll ll ou ys ag ar # ys at rm s nt no ma ic us Or Da si cy ia de te s n re d 00 06 07 30 30 00 ME Ac PI 90 -0 -0 .0 00 D ti RI 46 2- 7- 00 14 CA ve N 28 20 20 30 RE 81 88 17 17 75 9 42 PH MG AR MA CH CY EW AB LE TA BL ET FE 00 06 07 30 30 00 ME Ac RR 53 -0 -0 .0 00 D ti OU 61 2- 7- 00 14 CA ve S 00 20 20 30 RE ANAYA 90 17 17 75 LF 1 43 PH AT AR E MA 32 CY 5 MG TA BL ET TA 00 05 06 [...] .0 00 D ti SC 40 7- 9- 00 13 CA ve N 52 20 20 40 RE C 38 16 17 98 50 0 09 PH 0 AR MG MA CY TA BL LL ET C Procedures Procedure DOS Code Location Performer Comment BLOOD 61767 [facility] COUNT 7 [facility] HEALTHCAR COMPLETE E E AUTOMATED [facility] RADIOLOGI 39951 [facility] C EXAM 7 HEALTHCAR HEALTHCAR CHEST 2 E E VIEWS [facility] FRONTAL&L ATERAL KETONE 53153 [facility] BODIES 7 HEALTHCAR HEALTHCAR SERUM E E QUANTITAT [facility] ALIREZA GLUC BLD 42329 [facility]UC MNTR 7 [facility] CLEARED PSC FDA SPEC HOME USE HEMOGLOBI 80489 [facility] N 7 [facility] KEN A1C PSC COMPREHEN 18037 [facility] SIVE 7 HEALTHCAR HEALTHCAR METABOLIC E E PANEL [facility] GASES 06001 [facility] BLOOD PH 7 HEALTHCAR HEALTHCAR DIRECT E E LISETTE XCPT [facility] [address] [facility] LACTATE 7 HEALTHCAR HEALTHCAR E [facility] RADIOLOGI 11610 [facility] C 7 MEDICAL EXAMINATI IMAGING [place] [address] YARELI HEREDIA HEAD/BRAI 7 MEDICAL N W/O IMAGING CONTRAST ASS MATERIAL AMB A0427 [facility] 7 AMBULANCE AMBULANCE ALS SERVICE SERVICE EMERGENCY TRANSPORT LEVEL 1 GROUND A0425 [facility]ANCE AMBULANCE PER SERVICE SERVICE STATUTE [facility] [address] HEART MANAGEMEN T > 30 MIN SBSQ [address]2552 [place] [address] PHYSICIAN CARE/DAY S GROUP 25 MINUTES INITIAL [address]/[facility] HEART 50 MINUTES GROUND A0425 [facility] 7 AMBULANCE AMBULANCE PER SERVICE SERVICE [place]UTE [facility] [address] [facility] TRLU 7 PHYSICIAN CORONARY S GROUP STENT W/ANGIO ONE ART/BRNCH AMB A0426 [facility] 7 AMBULANCE AMBULANCE ALS SERVICE SERVICE NONEMERGE NCY TRANSPORT LEVEL 1 CATH PLMT 42353 [facility] & 7 PHYSICIAN PHYSICIAN ARTS S GROUP S GROUP W/NJX & ANGIO IMG S&I SLCTV 79197 [place] [address] PHYSICIAN 1STORD S GROUP W/WO ART PUNCT/FLU OR/S&I ELLY FLUORO [id number] [facility] MULTI 7 [facility] CORONARY INC INC ARTERIES LOW OSMOLAR CONT FLUOROSCO [id number] [facility] PY LEFT 7 [facility] HEART LOW INC INC OSMOLAR CONTRAST FLUORO [id number] [facility] BILATERAL 7 [facility] RENAL INC INC ART LOW OSMOLAR CONTRST FLUORO LT [id number] [facility] 7 [facility] SUBCLAVIA INC INC N ARTERY LOW OSMOLAR CONTRAST MEASUREME [id number] [facility] NT 7 [facility] CARDIAC INC INC 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 LT HEART PERQ SLCTV 65241 [facility] CATH 7 PHYSICIAN SUBCLAVIA S GROUP N ART ANGIO VERTEBRAL ARTERY SBSQ 44541 [facility] 7 PHYSICIAN CARE/DAY S GROUP [address]ES [address] [facility] 7 PHYSICIAN A CARE/DAY S GROUP 70 MINUTES AMB A0427 [facility] SERVICE 7 AMBULANCE AMBULANCE ALS SERVICE SERVICE EMERGENCY TRANSPORT LEVEL 1 GROUND A0425 [facility] MILEAGE 7 AMBULANCE AMBULANCE PER SERVICE SERVICE STATUTE MILE PULMONARY 17649 [facility] 7 MEDICAL VENTILATI IMAGING ON & ASS PERFUSION IMAGING RADIOLOGI 32923 [facility] C EXAM 7 MEDICAL CHEST 2 IMAGING VIEWS ASS FRONTAL&L ATERAL DUPLEX 79342 [facility] GI[facility] SCAN 7 MEDICAL EXTRACRAN IMAGING IAL ART ASS COMPL BI STUDY BLD GLU A4253 N[facility] HUERTASRELL TEST/REAG 7 HOME HOME T STRIPS MEDICAL MEDICAL HOME BLD EQUIPME EQUIPME GLU MON-50 LANCETS A4259 NAKUL HUERTASRELL PER BOX 7 HOME HOME OF 100 MEDICAL MEDICAL EQUIPME [place] [address] ALEXIA HALE TTING 7 BENIGN HYPERKERA TOTIC LESION 1 DEBRIDEME 38702 ALEXIA HALE NT NAIL 7 ANY METHOD 6/> NONEMERG A0120 [facility] TRNSPRT: 7 [facility] TRANSPORT [facility]N [facility] NONEMERG A0120 [facility] FEDERATED TRNSPRT: 6 [facility] TRANSPORT TRANSPORT MTN [facility] OPHTH 02455 [facility] 6 EYE XM&EVAL INSTITUTE INTERMEDI ATE ESTAB PT NONEMERG A0120 [facility] FEDERATED TRNSPRT: 6 [facility] TRANSPORT TRANSPORT MTN [facility] DEBRIDEME 68809 ALEXIA HALE NT NAIL 6 ANY METHOD 6/> NONEMERG A0120 FEDERATED FEDERATED TRNSPRT: 6 [facility] TRANSPORT TRANSPORT MTN ATION SER ATION [facility]/OT SYS [place]/CU [address] ALEXIA HALE TTING 6 BENIGN HYPERKERA TOTIC LESION 2-4 RADIOLOGI 21309 [facility] SHASHY C 6 MOBILE ANN EXAMINATI DIAGNOSTI ON FEMUR C SE MINIMUM 2 VIEWS DEBRIDEME 07404 ALEXIA HALE NT NAIL 6 JAM JAM ANY METHOD 6/> RADIOLOGI 70378 [facility] EXPRESS C EXAM 6 MOBILE MOBILE CHEST 2 DIAGNOSTI DIAGNOSTI VIEWS C SE C SE FRONTAL&L ATERAL NONEMERG A0120 [facility] FEDERATED TRNSPRT: 6 [facility]I-BUS TRANSPORT TRANSPORT MTN ATION SER ATION SER AREA/OTH SYS DEBRIDEME 02915 ALEXIA HALE NT NAIL 6 JAM JAM [...] [employer] FORMD PRFAB EA OPHTH 83003 [facility] 6 ANG ANG XM&EVAL COMPRHNSV ESTAB [...] HOME OF 100 MEDICAL MEDICAL EQUIPME EQUIPME NONEMER A0120 [facility] FEDERATED TRNSPRT: 5 [facility] TRANSPORT TRANSPORT MTN ATION [place] SER AREA/[place] [address] [facility] INFUSION 5 [facility] THERAPY/P INC INC ROPHYLAXI S /DX 1ST TO 1 [place] [address] [facility] INFUSION 5 [facility] THERAPY INC INC PROPHYLAX IS/DX EA HOUR XCAPSULAR 88869 [facility] CATARACT 5 [facility] RMVL INC INC INSJ LENS PROSTH 1 STG NONEMER A0120 [facility] FEDERATED TRNSPRT: 5 [facility] TRANSPORT TRANSPORT MTN ATION SER ATION SER AREA/OTH SYS NONEMER A0120 [facility]ERATED FEDERATED TRNSPRT: 5 [facility] TRANSPORT TRANSPORT MTN ATION SER ATION SER AREA/OTH SYS NONEMER A0120 FEDERATED FEDERATED TRNSPRT: 5 [facility]I-BUS TRANSPORT TRANSPORT MTN ATION SER ATION SER AREA/OTH SYS NONEMERG A0120 FEDERATED FEDERATED TRNSPRT: 5 [facility] TRANSPORT TRANSPORT MTN ATION SER ATION SER AREA/OTH SYS NONEMER A0120 FEDERATED FEDERATED TRNSPRT: 5 [facility] TRANSPORT TRANSPORT MTN ATION SER ATION SER AREA/OTH SYS NONEMERG A0120 FEDERATED FEDERATED TRNSPRT: 5 [facility]-BUS TRANSPORT TRANSPORT MTN ATION SER ATION SER AREA/OTH SYS NONEMER A0120 FEDERATED FEDERATED TRNSPRT: 5 [facility] TRANSPORT TRANSPORT MTN ATION SER ATION SER AREA/[place] [address] [facility] ALL ABDOMEN & 5 MEDICAL PELVIS IMAGING W/O ASS CONTRAST MATERIAL CT THORAX 70713 [facility] REYNOLDS ALL W/O 5 MEDICAL CONTRAST IMAGING MATERIAL ASS NONEMERG A0120 [facility]ATED FEDERATED TRNSPRT: 5 [facility] TRANSPORT TRANSPORT MTN ATION SER ATION SER AREA/OTH SYS RADIOLOGI 18196 [facility] EXPRESS C EXAM 5 MOBILE MOBILE CHEST 2 DIAGNOSTI DIAGNOSTI VIEWS C SE C SE FRONTAL&L ATERAL LANCETS A4259 NAKUL NAKUL PER BOX 5 HOME HOME OF 100 MEDICAL MEDICAL EQUIPME EQUIPME BLD GLU A4253 NAKUL NAKUL TEST/REAG 5 HOME HOME T STRIPS MEDICAL MEDICAL HOME BLD EQUIPME EQUIPME GLU MON-50 NONEMERG A0120 FEDERATED FEDERATED TRNSPRT: 5 MINI-BUS TRANSPORT TRANSPORT MTN [facility] SYS NONEMERG A0120 FEDERATED FEDERATED TRNSPRT: 5 [facility]-BUS TRANSPORT TRANSPORT MTN [facility] SYS REPAIR 10684 R[facility] RICHY INTERMEDI 5 [facility] ATE INC INC S/A/T/E 2.6-7.5 CM EXC B9 23931 [facility] WANDER TOD LESION 5 PHYSICIAN MRNATHEN XCP S GROUP SK TG T/A/L 2.1-3.0 CM NONEMERG A0120 FEDERATED FEDERATED TRNSPRT: 5 [facility] TRANSPORT TRANSPORT MTN [facility] [place] [address] [facility] GI[facility]ANNA HEAD/BRAI 5 MEDICAL MARTIN N W/O IMAGING CONTRAST ASS MATERIAL NONEMERG A0120 FEDERATED FEDERATED TRNSPRT: 4 TRANS MINI-BUS TRANSPORT SERVBLUEG MTN [facility]OT SYS BLD GLU A4253 NAKUL NAKUL TEST/REAG [...] MEDICAL HOME BLD EQUIPME EQUIPME GLU MON-50 DEBRIDEME 71612 ALEXIA HALE NT NAIL 4 JAM JAM ANY METHOD 6/> PARING/CU 56274 ALEXIA HALE TTING 4 JAM JAM BENIGN HYPERKERA TOTIC LESION 1 BLD GLU A4253 NAKUL NAKUL TEST/REAG 3 HOME HOME T STRIPS MEDICAL MEDICAL HOME BLD EQUIPME EQUIPME GLU MON-50 LANCETS A4259 NAKUL NAKUL PER BOX 3 HOME HOME OF 100 [place] [address] GIOVANNA GIOVANNA ABDOMINAL 3 MARTIN MARTIN [place] W/[place] [address] [facility] RETROPERI 3 [facility] TONEAL INC INC REAL TIME W/IMAGE COMPLETE NONEMERG A0120 LKLP CAC LKLP CAC TRNSPRT: 3 INC INC MINI-BUS REGION 11 REGION 11 [facility] SYS BLD GLU A4253 NAKUL NAKUL TEST/REAG 3 HOME HOME T STRIPS MEDICAL MEDICAL HOME BLD EQUIPME EQUIPME GLU MON-50 LANCETS A4259 NAKUL NAKUL PER BOX 3 HOME HOME OF 100 MEDICAL MEDICAL EQUIPME EQUIPME RADIOLOGI 15771 EXPRESS EXPRESS C EXAM 3 MOBILE MOBILE CHEST 2 DIAGNOSTI DIAGNOSTI VIEWS C SE C SE FRONTAL&L [facility] 06838 MCKEMIE MCKEMIE DISCHARGE 3 JR YO JR YO DAY MANAGEMEN T 30 MIN/< [place] [address] GIOVANNA GIOVANNA HEAD/BRAI 3 MARTIN MARTIN N W/O CONTRAST MATERIAL ECG 15722 WEHRMARBIN BURCH ROUTINE 3 III YO III YO ECG W/LEAST 12 LDS I&R ONLY RADIOLOGI 74880 [facility] EXPRESS C EXAM 3 MOBILE MOBILE CHEST 2 DIAGNOSTI DIAGNOSTI VIEWS C SE C SE FRONTAL&L ATERAL BLD GLU A4253 NAKUL NAKUL TEST/REAG 3 HOME HOME T STRIPS MEDICAL MEDICAL HOME BLD EQUIPME EQUIPME GLU MON-50 NONEMERG A0120 LKLP LKLP TRNSPRT: 2 [facility] COMM[facility]ITY MINI-BUS ACTION ACTION [facility] AREA/OTH SYS NONEMERG A0120 LKLP LKLP TRNSPRT: 2 [facility] MINI-BUS ACTION ACTION MTN AREA/OTH SYS MRA NECK 22287 GIOVANNA GIOVANNA W/O 2 MARTIN MARTIN CONTRST MATERIAL MRI BRAIN 25941 [facility] BRAIN 2 [facility] STEM W/O INC INC CONTRAST MATERIAL MRI BRAIN 13120 YARELI HEREDIA BRAIN 2 MEDICAL MARTIN STEM W/O IMAGING CONTRAST ASS MATERIAL NONEMERG A0120 [facility] TRNSPRT: 2 [facility] MINI-BUS ACTION ACTION MTN AREA/OTH SYS MRA HEAD 44301 YARELI GIOVANNA W/O 2 MEDICAL MARTIN CONTRST IMAGING MATERIAL ASS NONEMERG A0120 [facility] TRNSPRT: 2 [facility] MINI-BUS ACTION ACTION MTN AREA/OTH SYS BLOOD 49648 COMBINED COMBINED COUNT 2 PHYSICIAN PHYSICIAN COMPLETE S LA S LA AUTO&AUTO DIFRNTL WBC LIPID 94590 COMBINED COMBINED PANEL 2 PHYSICIAN PHYSICIAN S [place] HEMOGLOBI 97604 COMBINED COMBINED N 2 PHYSICIAN PHYSICIAN GLYCOSYLA S LA S LA KEN A1C COMPREHEN 08763 COMBINED COMBINED SIVE 2 PHYSICIAN PHYSICIAN METABOLIC S LA S LA PANEL RADIOLOGI 37013 WALTER Adams 2 MEDICAL FRA EXAMINATI SERV ON KNEE FOUNDATIO 1/2 VIEWS MRI BRAIN 02438 [facility] BRAIN 0 Y Y STEM W/O HOSPITAL HOSPITAL CONTRAST MATERIAL CYANOCOBA 42644 [facility] [place] 0 Y Y [facility] B-12 COMPREHEN 21469 [facility] SIVE 0 Y Y METABOLIC [facility] PANEL COLLECTIO 65953 [facility] UNIVERS N VENOUS 0 Y Y BLOOD [facility] VENIPUNCT URE RADEX 64068 WALTER CANDELARIA, SPINE 0 MEDICAL IVY N LUMBOSACR SERV AL 2/[place] [address] [facility] THYROID 0 Y Y STIMULATI [facility] NG HORMONE TSH BLOOD 55906 [facility] COUNT 0 Y [facility] AUTOMATED Encounters Encounter Start End Date Code Location Performer Type Date [facility] - 7 7 [facility] E T [facility]ALS OFFICE 93847 [facility] OUTPATIEN 7 7 [facility] 30 CLINIC MINUTES PSC EMERGENCY 38952 [facility] HIGH/URGE NT SEVERITY EMERGENCY 44966 [facility] HOLT DEPT 7 7 PHYSICIAN VISIT S, [facility] HIGH SEVERITY& THREAT FUN EMERGENCY 62693 MIKEY ANTONIO DEPT 7 7 PHYSICIAN U VISIT S, [facility] HIGH SEVERITY& [facility] - 7 7 [facility] INPATIENT INC OFFICE 27955 YARELI PAVO OUTPATIEN 7 7 [facility] 15 MINUTES OFFICE 66311 WALTER YA OUTPATIEN 6 6 MEDICAL T VISIT SERV 25 FOUNDATIO MINUTES N HOSPITAL [facility] - 5 5 [facility] OUTPATIEN INC T OFFICE 24600 [facility] PHILLIPS OUTPATIEN 5 5 [facility] 20 HOSPITAL MINUTES P OFFICE 32554 [facility] OUTPATIEN 5 5 [facility] T VISIT INC 10 MINUTES [facility]OSPITAL [facility] - 5 5 [facility] OUTPATIEN INC T [facility] - 5 5 [facility] OUTPATIEN INC T OFFICE 00248 [facility] NEVIN OUTPATIEN 5 5 [facility] 30 HOSPITAL MINUTES P HOSPITAL [facility] - 5 5 [facility] OUTPATIEN INC T EMERGENCY 13108 [facility] HOLT 5 5 [facility] T VISIT P MODERATE SEVERITY [facility]OSPITAL [facility] - 3 3 [facility] OUTPATIEN INC T OFFICE 08861 [facility] GIVEN CUR OUTPATIEN 2 2 T [facility] 30 MINUTES [facility]OSPITAL [facility] 45800 [facility] ALEC SULLY OUTPATIEN 0 0 [facility] T VISIT MEDICINE 15 P MINUTES OFFICE 56941 MÓNICA PEREZ 0 0 MEDICAL [place] A T VISIT SERV 15 FOUNDATIO MINUTES [facility] UNIVERSIT - 0 0 Y [facility] UNIVERSIT - 0 0 Y [facility] T OFFICE 99611 MÓNICA PEREZ 0 0 MEDICAL [place] A T VISIT SERV 15 FOUNDATIO MINUTES OFFICE [address] MÓNICA PEREZ 9 9 MEDICAL MALACHI A T NEW 45 SERV MINUTES FOUNDATIO
--- OUTSIDE RECORDS SUMMARY | 2016-12-24 08:45 | External Medical Summary Rpt ---
Demographics Preferred Language Kyrgyz Marital Status Unknown Yazidi Affiliation Unknown Race Unknown Ethnic Group Unknown Author Author LINDSAY Address Unknown Phone Immunization No patient found.
--- OUTSIDE RECORDS SUMMARY | 2016-12-24 08:45 | External Medical Summary Rpt ---
Author Author , LINDSAY Organization LINDSAY Address Unknown Phone [email or web address] Care Team Providers Care Dye Can Operator Name Role Phone PHILLIPS LUZ, PHILLIPS Unavailable Unavailable LUZ VIKY FRA, VIKY Unavailable Unavailable FRA BEINEKE, BEINEKE Unavailable Unavailable CHE, CHE Unavailable Unavailable CHE KRYSTAL, Unavailable Unavailable CHE KRYSTAL REYNOLDS ALL, REYNOLDS ALL Unavailable Unavailable BRAUDIS, BRAUDIS Unavailable Unavailable BRAUDIS, BRAUDIS Unavailable Unavailable BRAUDIS JAM, BRAUDIS Unavailable Unavailable JAM BRAUDIS JAM, BRAUDIS Unavailable Unavailable JAM [facility] Unavailable Unavailable SERVICE, [facility] Unavailable Unavailable SERVICE, [facility] Unavailable Unavailable [place], [...] Unavailable Unavailable INC, [facility] Unavailable Unavailable HOSPITAL P, [facility], Unavailable Unavailable [facility] OTIS BERG Unavailable Unavailable [...] Unavailable 11, [facility] Unavailable Unavailable ACTION, [facility] MCKEMIE YO, Unavailable Unavailable MCJOSIEMIE YO [facility] Unavailable Unavailable [facility], [facility], Unavailable Unavailable [facility], Unavailable Unavailable PLL[facility], [...] [facility] Unavailable Un[facility], [facility], Unavailable Unavailable [facility] MCCORD BHAKTI, MCCORD BHAKTI Unavailable Unavailable WEHRMAN III YO, Unavailable Unavailable WEHRMAN III YO Purpose Continuity of Care Document - 12-26-2008 through 2016 Problems Code Diagnosis DOS Provider Status E1165 TYPE 2 10-24-2016 [facility] [place]PER[place]YCEM [place] E785 HYPERLIPIDE 10-24-2016 [facility], [facility] UNSPECIFIED HOSPITALS I10 ESSENTIAL 10-24-2016 [facility] HYPERT[facility] CLINIC [facility] N I129 HYPERTENSIV 10-24-2016 [facility] E CKD HEALTHCARE W/STAGE 1-4 HOSPITALS CKD OR UNS CKD N189 CHRONIC 10-24-2016 [facility] UNSPECIFIED Z8673 PERSONAL HX 10-24-2016 [facility] H[facility]PITALS INFARCT NO RESID DEFICIT E118 TYPE 2 09-24-2016 [facility]ETES [facility], MELLITUS PLLC W/UNS COMPLICATIO NS 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 09-24-2016 [facility] CORONARY [facility], 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 N289 DISORDER OF 09-24-2016 [facility], URETER PLLC UNSPECIFIED R4182 ALTERED 09-24-2016 [facility] MENTAL [facility], STATUS PLLC UNSPECIFIED R5383 OTHER 09-24-2016 [facility] MEDICAL IMAGING ASS I4891 UNSPECIFIED 09-22-2016 [facility] ATRIAL HEART FIBRILLATIO N R748 ABNORMAL 09-22-2016 [facility] LEVELS OF HEART OTHER SERUM ENZYMES I214 NON-ST 09-21-2016 [facility] ELEVATION PHYSICIANS MYOCARDIAL GROUP INFARCTION L98505 ASHD ZUNI 09-21-2016 [facility] COR ART PHYSICIANS W/UNSTABLE GROUP ANGINA PECTORIS I495 SICK SINUS 09-21-2016 [facility] SYNDROME PHYSICIANS GROUP N183 CHRONIC 09-21-2016 [facility] KIDNEY PHYSICIANS DISEASE GROUP STAGE 3 MODERATE F04860 HEMIPLEGIA 09-20-2016 [facility] FLW PHYSICIANS CEREBRAL GROUP INFARCT AFFCT UNS SIDE 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 [facility] OSIS OF PHYSICIANS RENAL GROUP ARTERY K15139 ENCOUNTER 09-20-2016 [facility] FOR OTHER PHYSICIANS PREPROCEDUR GROUP AL EXAMINATION E1122 TYPE 2 09-19-2016 [facility] DIABETES [facility] MELLITUS INC W/DIAB CHRON KIDNEY DZ 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[place] [facility] 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 H46062 HEMIPLEGIA 09-19-2016 [facility] FLW [facility] CEREBRAL INC INFARCT AFF RT DOM SIDE N390 URINARY 09-19-2016 [facility] TRACT [facility] INFECTION INC SITE NOT SPECIFIED R0602 SHORTNESS 09-19-2016 [facility] OF BREATH PHYSICIANS, [facility] R079 CHEST PAIN 09-19-2016 [facility] UNSPECIFIED AMBULANCE SERVICE R7989 OTHER SPEC 09-19-2016 [place] ABNORMAL MEDICAL FINDINGS IMAGING ASS BLOOD CHEMISTRY E119 TYPE 2 09-15-2016 [facility] DIABETES HOME MELLITUS MEDICAL WITHOUT EQUIPME COMPLICATIO NS B351 TINEA 09-07-2016 BRA[facility]IS UNGUIUM E1151 TYPE 2 DM 09-07-2016 [facility] W/DIAB 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 X79523 PAIN IN 09-07-2016 [facility] RIGHT TOES R67570 PAIN IN 09-07-2016 [facility] LEFT TOES R600 LOCALIZED 09-07-2016 [facility] EDEMA H1789 OTHER 07-11-2016 [place] [facility] OPACITIES R69 ILLNESS 07-11-2016 [facility] UNSPECIFIED TRANSPORTAT ION SER H3423HA FOREIGN 05-27-2016 [place] BODY IN EYE CORNEA UNS INSTITUTE EYE INITIAL ENCOUNTER Z961 PRESENCE OF 05-27-2016 [facility] LENS H15565 PAIN IN 01-22-2016 [facility] LEFT THIGH MOBILE DIAGNOSTIC SE R7611 NONSPECIFIC 12-30-2015 EXPRESS RXN MOBILE TUBERCULIN DIAGNOSTIC SKIN TEST SE W/O ACT TB N250 RENAL 10-05-2015 [facility] MEDICAL OSTEODYSTRO SERV PHY [facility]ATION Z794 HALFWAY 10-05-2015 [place] MEDICAL CURRENT USE SERV OF INSULIN [facility] H2513 AGE-RELATED 07-03-2015 SCIFRES ANG NUCLEAR CATARACT BILATERAL Z75795 PUPILLARY 04-28-2015 [facility] ABNORMALITY [facility] LEFT EYE INC V60669 COMBINED 04-28-2015 CHE FORMS OF 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 LEFT EYE H269 UNSPECIFIED 04-28-2015 [facility] CATARACT [facility]OS[facility] INC H5703 MIOSIS 04-28-2015 CHE KRYSTAL N3941 URGE 04-21-2015 [facility] P 2859 UNSPECIFIED 02-25-2015 [facility] ANEMIA [facility] 23978 02-25-2015 [facility] TRANSPORTAT ION SER 2410 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 [place] UNINODULAR MEDICAL GOITER IMAGING ASS 11482 DIAB W/O 02-17-2015 [facility] COMP TYPE MEM [facility]OS[facility] II/UNS NOT INC STATED UNCNTRL 2558 OTHER 02-17-2015 [place] SPECIFIED MEDICAL DISORDERS IMAGING ASS OF ADRENAL GLANDS 40828 UNSPEC 02-17-2015 [place] VENTRAL MEDICAL NIMO W/O IMAGING ASS MENTION OBST/GANGRE N 5932 ACQUIRED 02-17-2015 [place] CYST OF MEDICAL KIDNEY IMAGING ASS 51948 NONSPEC 12-25-2014 EXPRESS REACT MOBILE TUBERCULIN DIAGNOSTIC [place] W/[place] [address] OTHER ACUTE 09-19-2014 [facility] PAIN PHYSICIANS GROUP 7062 SEBACEOUS 09-19-2014 [facility] CYST PHYSICIANS GROUP 7820 DISTURBANCE 09-19-2014 [facility] OF SKIN PHYSICIANS SENSATION GROUP V154 PERS HX 09-17-2014 [facility]PT FOR PSYCHOLOGIC PUBLIC HLTH AL TRAUMA PRS [facility] 4739 UNSPECIFIED 07-04-2014 [place] SINUSITIS MEDICAL IMAGING ASS 7813 LACK OF 07-04-2014 [place] COORDINATIO MEDICAL N IMAGING ASS 23320 DIAB W/O 07-03-2014 [facility] TYPE HOSPITAL P II/UNS TYPE UNCNTRL 4019 UNSPECIFIED 07-03-2014 [facility] HYPERTENSIO HOSPITAL P N 12644 MUSCLE 07-03-2014 [facility] WEAKNESS [facility] P D) 24657 OTHER 07-03-2014 [facility] P 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 12606 DIAB 06-28-2013 ALEXIA MEADE W/PERIPH CIRC D/O TYPE II/UNS NOT UNCNTRL 7011 ACQUIRED 06-28-2013 ALEXIA MEADE KERATODERMA 7295 PAIN IN 06-28-2013 ALEXIA MEADE SOFT TISSUES OF LIMB 7823 EDEMA 06-28-2013 ALEXIA MEADE 5853 CHRONIC 04-15-2013 [facility] DISEASE INC STAGE III (MODERATE) 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 7533 OTHER 04-15-2013 GI[facility] SPECIFIED MARTIN CONGENITAL ANOMALIES OF KIDNEY 04165 DEHYDRATION 01-03-2013 SIGRID MONTENEGRO YO 2767 HYPERPOTASS 01-03-2013 SIGRDI MONTENEGRO EMIA YO 3319 UNSPECIFIED 01-02-2013 GI[facility] CEREBRAL MARTIN DEGENERATIO N 514 PULMONARY 12-04-2012 EXPRESS CONGESTION [place] [address] SHORTNESS 12-04-2012 [place] [address] UNSPECIFIED 04-30-2012 GIVEN CUR CEREBRAL ARTERY OCCLUSION W/INFARCT 93515 OCCL&STENOS 04-05-2012 GIOVANNA MX&BILAT MARTIN PRECERBRL ART W/O INFARCT 76553 UNSPEC 04-04-2012 [place] CERBRL ART MEDICAL OCCLUSION IMAGING ASS W/O MENTION INFARCT 4370 CEREBRAL 04-04-2012 [place] ATHEROSCLER MEDICAL OSIS IMAGING ASS 4371 OTH 04-04-2012 [place] GENERALIZED MEDICAL ISCHEMIC IMAGING ASS CEREBROVASC ULAR DISEASE V5869 LONG-TERM 01-18-2012 COMBINED (CURRENT) PHYSICIANS USE OF [place] OTHER MEDICATIONS 85458 OSTEOARTHRO 12-16-2011 [place] MEDICAL SIS UNSPEC SERV WHETHER FOUNDATIO GEN/LOC LOWER LEG 42663 PAIN IN 12-16-2011 [place] MED[facility] JOINT, SERV LOWER LEG FOUNDATIO 57964 EXOSTOSIS 12-16-2011 [place] MEDICAL OF SERV UNSPECIFIED FOUNDATIO SITE 37363 MEMORY LOSS 08-21-2009 [facility] V1254 PERSONAL HX 08-21-2009 [facility] W/O RESIDUAL DEFICITS 4409 GENERALIZED 07-17-2009 [place] [facility] UNSPECIFIED ATHEROSCLER OSIS 7213 LUMBOSACRAL 07-17-2009 [place] [facility] SERV 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 7242 LUMBAGO 07-17-2009 [place] [facility] FOUND[place] 78321 ALTERED 07-17-2009 [place] MEDICAL MENTAL SERV STATUS FOUNDATIO 2724 OTHER AND 12-26-2008 [place] MEDICAL UNSPECIFIED SERV FOUNDATIO HYPERLIPIDE PAT Medications [...] 90 -2 -2 .0 00 D ti PA 40 4- 3- 00 14 CA ve [...] 90 -2 -0 .0 00 D ti PA 40 7- 2- 00 14 CA ve [...] 90 -3 -0 .0 00 D ti PA 40 1- 5- 00 13 CA ve [...] 90 -0 -0 .0 00 D ti PA 40 3- 7- 00 13 CA ve [...] 90 -0 -1 .0 00 D ti PA 40 3- 0- 00 13 CA ve [...] 90 -0 -1 .0 00 D ti PA 40 5- 0- 00 13 CA ve [...] 90 -0 -0 .0 00 D ti PA 40 7- 9- 00 13 CA ve N 52 20 20 40 RE C 38 16 17 98 50 0 09 PH 0 AR MG MA CY TA BL LL ET C Procedures Procedure DOS Code Location Performer Comment BLOOD 60483 [facility] COUNT 7 HEALTHCAR HEALTHCAR COMPLETE E E AUTOMATED [facility] RADIOLOGI 06029 [facility] C EXAM 7 HEALTHCAR HEALTHCAR CHEST 2 E E VIEWS [facility] FRONTAL&L ATERAL KETONE 35581 [facility] BODIES 7 HEALTHCAR HEALTHCAR SERUM E E QUANTITAT [facility] ALIREZA GLUC BLD 49716 [facility] GLUC MNTR 7 BATH DEV CLINIC CLEARED PSC FDA SPEC HOME USE HEMOGLOBI 68931 [facility] N 7 BATH GLYCOSYLA CLINIC KEN A1C PSC COMPREHEN 06816 [facility] SIVE 7 HEALTHCAR HEALTHCAR METABOLIC E E PANEL [facility] GASES 70448 [facility] BLOOD PH 7 HEALTHCAR HEALTHCAR DIRECT E E LISETTE XCPT [facility] [address] [facility] LACTATE 7 HEALTHCAR HEALTHCAR E [facility] RADIOLOGI 70274 [facility] BEBARBARAKE C 7 MEDICAL EXAMINATI [place]AGING [place] [address] YARELI HEREDIA HEAD/BRAI 7 MEDICAL N W/O IMAGING CONTRAST ASS MATERIAL AMB A0427 [facility] 7 AMBULANCE AMBULANCE ALS SERVICE SERVICE EMERGENCY TRANSPORT LEVEL 1 GROUND A0425 [facility]ULANCE AMBULANCE PER SERVICE SERVICE STATUTE [facility] [address] HEART MANAGEMEN T > 30 MIN SBSQ [address] [place] [address] PHYSICIAN CARE/DAY S GROUP 25 MINUTES INITIAL [address]/[facility] HEART 50 MINUTES GROUND A0425 [facility] 7 AMBULANCE AMBULANCE PER SERVICE SERVICE STATUTE [facility] [place] [address] [facility] T[facility]U 7 PHYSICIAN CORONARY S GROUP STENT W/ANGIO ONE ART/BRNCH AMB A0426 [facility] 7 AMBULANCE AMBULANCE ALS SERVICE SERVICE NONEMERGE NCY TRANSPORT LEVEL 1 CATH PLMT 20359 [facility] L HRT & 7 PHYSICIAN PHYSICIAN ARTS S GROUP S GROUP W/NJX & ANGIO IMG S&I SLCTV 03190 [place] [address] PHYSICIAN 1STORD S GROUP W/WO ART PUNCT/FLU OR/S&I ELLY FLUORO [id number] [facility] MULTI 7 [facility] CORONARY INC INC ARTERIES LOW OSMOLAR CONT FLUOROSCO [id number] [facility] PY LEFT 7 [facility] HEART LOW INC INC OSMOLAR CONTRAST FLUORO [id number] [facility] BILATERAL 7 [facility] RENAL INC INC ART LOW OSMOLAR CONTRST FLUORO LT [id number] [facility] 7 [facility] SUBCLAVIA INC INC N ARTERY LOW OSMOLAR CONTRAST MEASUREME [id number] [facility] NT 7 [facility] CARDIAC INC INC 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 LT HEART PERQ SLCTV 92111 [facility] CATH 7 PHYSICIAN SUBCLAVIA S GROUP N ART ANGIO VERTEBRAL ARTERY SBSQ 47580 [facility] 7 PHYSICIAN CARE/DAY S GROUP 15 MINUTES INITIAL 35563 [facility] 7 PHYSICIAN A CARE/DAY S GROUP 70 MINUTES AMB A0427 [facility] SERVICE 7 AMBULANCE AMBULANCE ALS SERVICE SERVICE EMERGENCY TRANSPORT LEVEL 1 GROUND A0425 [facility] MILEAGE 7 AMBULANCE AMBULANCE PER SERVICE SERVICE STATUTE MILE PULMONARY 85900 [facility] 7 MEDICAL VENTILATI IMAGING ON & ASS PERFUSION IMAGING RADIOLOGI 86903 [facility] C EXAM 7 MEDICAL CHEST 2 IMAGING VIEWS ASS FRONTAL&L ATERAL DUPLEX 95190 [place] GIOVANNA SCAN 7 MEDICAL EXTRACRAN IMAGING IAL ART ASS COMPL BI STUDY BLD GLU A4253 NAKUL HUERTASRELL TEST/REAG 7 HOME HOME T STRIPS MEDICAL MEDICAL HOME BLD EQUIPME EQUIPME GLU MON-50 LANCETS A4259 NAKUL HUERTASRELL PER BOX 7 HOME HOME OF 100 MEDICAL MEDICAL EQUIPME [place]QU[place] [address] ALEXIA HALE TTING 7 BENIGN HYPERKERA TOTIC LESION 1 DEBRIDEME 35350 ALEXIA HALE NT NAIL 7 ANY METHOD 6/> NONEMERG A0120 [facility]ATED FEDERATED TRNSPRT: 7 [facility] TRANSPORT [facility] NONEMERG A0120 FEDERATED FEDERATED TRNSPRT: 6 [facility] TRANSPORT TRANSPORT MTN [facility] OPHTH 48837 [facility] 6 EYE XM&EVAL INSTITUTE INTERMEDI ATE ESTAB PT NONEMERG A0120 FEDERATED FEDERATED TRNSPRT: 6 MINI-BUS TRANSPORT TRANSPORT MTN [facility] DEBRIDEME 91895 ALEXIA HALE NT NAIL 6 ANY METHOD 6/> NONEMERG A0120 FEDERATED FEDERATED TRNSPRT: 6 MINI-BUS TRANSPORT TRANSPORT MTN ATION SER ATION [facility]/OT SYS [place]/CU [address] ALEXIA HALE TTING 6 BENIGN HYPERKERA TOTIC LESION 2-4 RADIOLOGI 63258 [facility] SHASHY C 6 MOBILE ANN EXAMINATI DIAGNOSTI ON FEMUR C SE MINIMUM 2 VIEWS DEBRIDEME 73884 ALEXIA HALE NT NAIL 6 JAM JAM ANY METHOD 6/> RADIOLOGI 21740 EXPRESS EXPRESS C EXAM 6 MOBILE MOBILE CHEST 2 DIAGNOSTI DIAGNOSTI VIEWS C SE C SE FRONTAL&L ATERAL NONEMERG A0120 FEDERATED FEDERATED TRNSPRT: 6 MINI-BUS TRANSPORT TRANSPORT MTN ATION SER ATION SER AREA/OTH SYS DEBRIDEME 02250 ALEXIA HALE NT NAIL 6 JAM JAM [...] [employer] FORMD PRFAB EA OPHTH 06376 [facility] 6 ANG ANG XM&EVAL COMPRHNSV ESTAB [...] ATION SER ATION SER AREA/[place] [address] [facility] INFUSION 5 [facility] THERAPY/P INC INC ROPHYLAXI S /DX 1ST TO 1 [place] [address] [facility] INFUSION 5 [facility]OS[facility] THERAPY INC INC PROPHYLAX IS/DX EA HOUR XCAPSULAR 67093 [facility] CATARACT 5 MEM HOSP MEM [...] ATION SER ATION SER AREA/[place] [address] [facility] ALL ABDOMEN & 5 MEDICAL PELVIS IMAGING W/O ASS CONTRAST MATERIAL CT THORAX 61966 [place] REYNOLDS ALL W/O 5 MEDICAL CONTRAST IMAGING MATERIAL ASS NONEMERG A0120 FEDERATED FEDERATED TRNSPRT: 5 [facility]I-BUS TRANSPORT TRANSPORT MTN ATION SER ATION SER AREA/OTH SYS RADIOLOGI 25874 [facility] EXPRESS C EXAM 5 MOBILE MOBILE [...] 5 MINI-BUS TRANSPORT TRANSPORT MTN [facility] SYS NONEMERG A0120 FEDERATED FEDERATED TRNSPRT: 5 MINI-BUS TRANSPORT TRANSPORT [facility]N [facility] SYS REPAIR 47228 RICHY RICHY INTERMEDI 5 MEM HOSP MEM [facility]OS[facility] ATE INC INC S/A/T/E 2.6-7.5 CM EXC B9 57719 [facility] WANDER TOD LESION 5 PHYSICIAN MRNATHEN XCP S GROUP SK TG T/A/L 2.1-3.0 CM NONEMERG A0120 FEDERATED FEDERATED TRNSPRT: 5 MINI-BUS TRANSPORT TRANSPORT MTN [facility] [place] [address] [facility] GI[facility] HEAD/BRAI 5 MEDICAL MARTIN N W/O IMAGING CONTRAST ASS MATERIAL NONEMERG A0120 FEDERATED FEDERATED TRNSPRT: 4 TRANS MINI-BUS TRANSPORT SERVBLUEG MTN [facility]OT SYS BLD GLU A4253 NAKUL NAKUL TEST/REAG [...] HOME BLD EQUIPME EQUIPME GLU MON-50 DEBRIDEME 92942 ALEXIA HALE NT NAIL 4 JAM JAM ANY METHOD 6/> [place]/CU 32384 ALEXIA HALE TTING 4 JAM JAM BENIGN HYPERKERA TOTIC LESION 1 BLD GLU A4253 NAKUL NAKUL TEST/REAG 3 HOME HOME T STRIPS MEDICAL MEDICAL HOME BLD EQUIPME EQUIPME GLU MON-50 LANCETS A4259 NKAUL NAKUL PER BOX 3 HOME HOME OF 100 [place] [address] GIOVANNA GIOVANNA ABDOMINAL 3 MARTIN AMRTIN REAL TIME W/[place] [address] R[facility]Y [facility] RETROPERI 3 MEM HOS[facility]OS[facility] TONEAL INC INC REAL TIME W/IMAGE COMPLETE NONEMERG A0120 LKLP CAC LKLP CAC TRNSPRT: 3 INC INC MINI-BUS REGION 11 REGION 11 [facility] SYS BLD GLU A4253 NAKUL NAKUL TEST/REAG 3 HOME HOME T STRIPS MEDICAL MEDICAL HOME BLD EQUIPME EQUIPME GLU MON-50 LANCETS A4259 NAKUL NAKUL PER BOX 3 HOME HOME OF 100 MEDICAL MEDICAL EQUIPME EQUIPME RADIOLOGI 37218 EXPRESS EXPRESS C EXAM 3 MOBILE MOBILE CHEST 2 DIAGNOSTI DIAGNOSTI VIEWS C SE C SE FRONTAL&L [facility] 99512 MCKEMIE MCKEMIE DISCHARGE 3 JR YO JR YO DAY MANAGEMEN T 30 MIN/< [place] [address] GIOVANNA GIOVANNA HEAD/BRAI 3 MARTIN MARTIN N W/O CONTRAST MATERIAL ECG 95362 WEHRMARBIN BURCH ROUTINE 3 III YO III YO ECG W/LEAST 12 LDS I&R ONLY RADIOLOGI 81126 [facility] EXPRESS C EXAM 3 MOBILE MOBILE CHEST 2 DIAGNOSTI DIAGNOSTI VIEWS C SE C SE FRONTAL&L ATERAL BLD GLU A4253 NAKUL NAKUL TEST/REAG 3 HOME HOME T STRIPS MEDICAL MEDICAL HOME BLD EQUIPME EQUIPME GLU MON-50 NONEMERG A0120 LKLP LKLP TRNSPRT: 2 [facility] MINI-BUS ACTION ACTION [facility] AREA/OTH SYS NONEMERG A0120 LKLP LKLP TRNSPRT: 2 [facility] MINI-BUS ACTION ACTION MTN AREA/OTH SYS MRA NECK 52496 GIOVANNA GIOVANNA W/O 2 MARTIN MARTIN CONTRST MATERIAL MRI BRAIN 37439 [facility] BRAIN 2 [facility] STEM W/O INC INC CONTRAST MATERIAL MRI BRAIN 38773 YARELI HEREDIA BRAIN 2 MEDICAL MARTIN STEM W/O IMAGING CONTRAST ASS MATERIAL NONEMERG A0120 [facility] TRNSPRT: 2 [facility] MINI-BUS ACTION ACTION MTN AREA/OTH SYS MRA HEAD 20540 YARELI GIOVANNA W/O 2 MEDICAL MARTIN CONTRST IMAGING MATERIAL ASS NONEMERG A0120 [facility] TRNSPRT: 2 [facility] MINI-BUS ACTION ACTION MTN AREA/OTH SYS BLOOD 21866 COMBINED COMBINED COUNT 2 PHYSICIAN PHYSICIAN COMPLETE S LA S LA AUTO&AUTO DIFRNTL WBC LIPID 29539 COMBINED COMBINED PANEL 2 PHYSICIAN PHYSICIAN S LA S LA HEMOGLOBI 73200 COMBINED COMBINED N 2 PHYSICIAN PHYSICIAN GLYCOSYLA S LA S LA KEN A1C COMPREHEN 58860 COMBINED COMBINED SIVE 2 PHYSICIAN PHYSICIAN METABOLIC S LA S LA PANEL RADIOLOGI 96720 [facility] 2 MEDICAL FRA EXAMINATI SERV ON KNEE FOUNDATIO 1/2 VIEWS MRI BRAIN 05259 [facility] BRAIN 0 Y Y STEM W/O HOSPITAL HOSPITAL CONTRAST MATERIAL CYANOCOBA 25275 [facility] LEATHA 0 Y [facility] B-12 COMPREHEN 59064 [facility] SIVE 0 Y Y METABOLIC [facility] HOSPITAL PANEL COLLECTIO [address] [facility] UNIVERS N VENOUS 0 Y Y BLOOD [facility] VENIPUNCT URE RADEX 29952 WALTER CANDELARIA, SPINE 0 MEDICAL IVY N LUMBOSACR SERV AL 2/[place] [address] [facility] THYROID 0 Y Y STIMULATI [facility] NG HORMONE TSH BLOOD 96122 [facility] COUNT 0 Y Y COMPLETE HOSPITAL HOSPITAL AUTOMATED Encounters Encounter Start End Date Code Location Performer Type Date HOSPITAL [facility] - 7 7 [facility] OUTPATIEN E T HOSPITALS OFFICE 25825 [facility] 7 7 [facility] 30 CLINIC MINUTES PSC EMERGENCY 88704 7 [facility] HIGH/URGE NT SEVERITY EMERGENCY 57176 [facility]KEY HOLT DEPT 7 7 PHYSICIAN VISIT S, [facility] HIGH SEVERITY& THREAT FUN EMERGENCY 86225 MIKEY ANTONIO DEPT 7 7 PHYSICIAN U VISIT S, [facility] HIGH SEVERITY& THREAT [facility] HOSPITAL RICHY - 7 7 MEM H[facility]P INPATIENT INC OFFICE 41896 YARELI [place] OUTPATIEN 7 7 EYE T VISIT INSTITUTE 15 MINUTES OFFICE 51530 [facility] YA OUTPATIEN 6 6 MEDICAL T VISIT SERV 25 FOUNDATIO MINUTES N [facility]OSPITAL [facility] - 5 5 [facility] OUTPATIEN INC T OFFICE 72926 RICHY PHILLIPS OUTPATIEN 5 5 [facility] 20 HOSPITAL MINUTES P OFFICE 61222 [facility] OUTPATIEN 5 5 [facility] T VISIT INC 10 MINUTES [facility]OSP[facility] - 5 5 [facility] T [facility] - 5 5 [facility] OUTPATIEN INC T OFFICE [id number] RICHY NEVIN OUTPATIEN 5 5 [facility] 30 HOSPITAL MINUTES P HOSPITAL [facility] - 5 5 [facility] OUTPATIEN INC T EMERGENCY 25338 RICHY HOLT 5 5 [facility] T VISIT P MODERATE SEVERITY HOSPITAL [facility] - 3 3 [facility] OUTPATIEN INC T OFFICE 20877 GIVEN CUR GIVEN CUR OUTPATIEN 2 2 T [facility] 30 MINUTES HOSPITAL [facility] - 2 2 [facility] T OFFICE 83554 [facility] ALEC SULLY OUTPATIEN 0 0 [facility] T VISIT MEDICINE 15 P MINUTES OFFICE 97766 MÓNICA PEREZ 0 0 [facility] [place] [facility] T VISIT SERV 15 FOUNDATIO MINUTES [facility] UNIVERSIT [facility] 0 0 Y [facility] HOSPITAL UNIVERSIT - 0 0 Y [facility] T OFFICE 24667 MÓNICA PEREZ 0 0 [facility] [place] [facility] T VISIT SERV 15 FOUNDATIO MINUTES OFFICE 60456 MÓNICA PEREZ 9 9 [facility] [place] [facility] T NEW 45 SERV MINUTES FOUNDATIO
--- OUTSIDE RECORDS SUMMARY | 2016-12-24 08:45 | External Medical Summary Rpt ---
Demographics Preferred Language Sami Marital Status Unknown Pentecostal Affiliation Unknown Race Unknown Ethnic Group Unknown Author Author LINDSAY Address Unknown Phone Immunization No patient found.
--- NOTE | 2016-12-24 08:49 | HISTORY AND PHYSICAL REPORT ---
Demographics: Admit date: 12/24/16 Chief complaint: fall PRIMARY DIAGNOSIS: wrist injury Allergies: Coded Allergies: BANANAS (FOOD) (From BANANAS (FOOD/DRUG)) (01/03/13) History of present illness: History of present illness: this wf from local [facility] fell this am with no def etiology of fall- she has diabetes and cad but no loc and suffered open fx rt wrist and was seen at [facility] and will be seen by dr mondragon and have surg this am and will be admitted Past medical history: Family HX Family Hx Insignificant Yes Immunization HX DT/Tetanus Unknown Flu [id number] Flu Season Pneumonia Refuses General CAD? No Angina: No CT: No Hypertension? Yes Hyperlipidemia? Yes CHF? No DVT? No PE? No COPD? No Asthma? No Anemia? No GERD? No Gastric ulcers? No GI Bleed? No Hernia? No Thyroid Problems? No Hypothyroidism? No CVA? Yes Seizures? No Diabetes? Yes Insulin Dependent: No Insulin Pump: No Home FSBS? No Renal Insuffiency? No UTI? No Stones? No BPH? No GB Disease: No Nephritic Syndrome? No Asplenia? No Hepatitis? No Sickle Cell Disease? No Arthritis? Yes Migraines? No Cataracts? No Glaucoma? No MRSA? No HIV? No TB? No Anxiety? No Depression? No Cancer? No Site: N More? No Past Surgical HX Previous Surgery?Y BLADDER SX HYSTERECTOMY RIGHT ANKLE SEBACEOUS CYST REMOVED ELLY LEGS VEIN STRIPPING CARDIAC STENTS Current home meds: Active Scripts CLOPIDOGREL BISULFATE (Clopidogrel) 75 MG PO DAILY 30 Days Prov: 09/21/16 Diltiazem Hcl (Cardizem Cd 120MG Cap) 120 MG PO DAILY 30 Days Prov: 09/21/16 Aspirin (Aspirin EC 81MG Tab) 81 MG PO DAILY 30 Days Prov: 09/21/16 Ferrous Sulfate 325 MG PO DAILY 30 Days Prov: 09/21/16 VIT#96/FERROUS FUM/FA ( Tablet) 1 EACH PO DAILY 30 Days Prov: 09/21/16 Sertraline Hcl (Zoloft 50MG) 50 MG PO DAILY 30 Days Prov: 09/21/16 ASCORBIC ACID (Vitamin C) 500 MG PO DAILY 30 Days Prov: 09/21/16 Lisinopril 2.5 MG PO DAILY #30 TAB Prov: 12/07/16 Reported Medications Pioglitazone (Actos 15MG) 15 MG PO DAILY Atorvastatin Calcium (Atorvastatin) 40 MG PO QHS MULTIVITAMIN (Multivitamins) 1 CAP PO DAILY Pantoprazole Sodium (Pantoprazole 40MG) 40 MG PO DAILY NITROGLYCERIN (Nitrostat) 0.4 MG SL [id number] PRN CHEST PAIN Oxybutynin Chloride (Ditropan XL) 10 MG PO DAILY Ins Asp-Prt 70/Asp 30(Nvlogmx) (Novolog Mix 70-30 Flexpen Syrn) 16 UNITS SC BID Social Hx: Smoking HX Tobacco Yes Type Cigarettes Packs/day < 1 PACK Alcohol Alcohol: No Hx of Drug Use Drug Use? No Patien't marital status is Patient's support system is good Review of systems: Constitutional No: fever. Eyes No: drainage. Ears, Nose, Mouth, Throat No ear discharge, No epistaxis, No throat pain Respiratory No: cough, wheezing. Cardiovascular No chest pain, No palpitations, No syncope Gastrointestinal/Abdominal No diarrhea, No vomiting Genitourinary No: dysuria. Musculoskeletal see HPI, joint pain, joint swelling, other. Skin No: rash. Neurological No: seizure disorder. Psychiatric No: no symptoms reported. Exam: Lab data for last 24 hours: Laboratory Tests 12/24/16 0730: Sodium 138, Potassium 5.0, Chloride 105, Carbon Dioxide 26, BUN 18, Creatinine 1.4 H, Estimated Creat Clear 36 L, Estimated GFR (MDRD) 36 L, Glucose 140 H, Calcium 9.0, Total Bilirubin 0.3, AST 19, ALT 26, Alkaline Phosphatase 80, Total Protein 6.8, Albumin 2.5 L, Globulin 4.3 H, Albumin/Globulin Ratio 0.6 L, PT 11.2, INR 1.05, WBC 5.1, RBC 3.11 L, Hgb 9.5 L, Hct 29.0 L, MCV 93.4, RDW 14.0, Plt Count 245, MPV 7.1 L, Gran % 42.3, Gran # 2.2, Lymphocytes % 47.6, Monocytes % 4.6, Eosinophils % 4.4, Basophils % 1.1, Lymphocytes # 2.4, Monocytes # 0.2, Eosinophils # 0.2, Basophils # 0.1, PUBS MCHC 33.0, MCH 30.8 Microbiology 07/08 0805 BLOOD: Anaerobic Blood Culture - ORD 12/24 804 BLOOD: Aerobic Blood Culture - ORD 12/24 800 BLOOD: Anaerobic Blood Culture - ORD 12/24 800 BLOOD: Aerobic Blood Culture - ORD Admission vital signs: 1ST Vital Signs Result Date Time Pulse Ox 96 12/24 728 B/P 155/74 12/24 728 Temp 98.6 12/24 728 Pulse 66 12/24 728 Resp 18 12/24 728 Exam General appearance: alert Eyes: anicteric, PERRLA ENT: dry mucous membranes Neck: no JVD, no bruit Cardiovascular: regular rate & rhythm, murmur Respiratory: no respiratory distress, diminished breath sounds ABD: soft Genitourinary: normal voiding & quantity Extremities: open fx rt wrist Musculoskeletal: equal muscle strength Skin: open wd rt wrist /neurovascular ok 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 Open fracture of right wrist 2. Diabetes mellitus, insulin dependent (IDDM), controlled 3. Anemia Plan: will admit at 0849
--- NOTE | 2016-12-24 08:49 | HISTORY AND PHYSICAL REPORT ---
Demographics: Admit date: 12/24/16 Chief complaint: fall PRIMARY DIAGNOSIS: wrist injury Allergies: Coded Allergies: BANANAS (FOOD) (From BANANAS (FOOD/DRUG)) (01/03/13) History of present illness: History of present illness: this [facility] from local [facility] this am with no def etiology of fall- she has diabetes and cad but no loc and suffered open fx rt wrist and was seen at [facility] ed and will be seen by dr mondragon and have surg this am and will be admitted Past medical history: Family HX Family Hx Insignificant Yes Immunization HX DT/Tetanus Unknown Flu [id number] Flu Season Pneumonia Refuses General CAD? No Angina: No [place]: No Hypertension? Yes Hyperlipidemia? Yes CHF? No DVT? No PE? No COPD? No Asthma? No Anemia? No GERD? No Gastric ulcers? No GI Bleed? No Hernia? No Thyroid Problems? No Hypothyroidism? No CVA? Yes Seizures? No Diabetes? Yes Insulin Dependent: No Insulin Pump: No Home FSBS? No Renal Insuffiency? No UTI? No Stones? No BPH? No GB Disease: No Nephritic Syndrome? No Asplenia? No Hepatitis? No Sickle Cell Disease? No Arthritis? Yes Migraines? No Cataracts? No Glaucoma? No MRSA? No HIV? No TB? No Anxiety? No Depression? No Cancer? No Site: N More? No Past Surgical HX Previous Surgery?Y BLADDER SX HYSTERECTOMY RIGHT ANKLE SEBACEOUS CYST REMOVED ELLY LEGS VEIN STRIPPING CARDIAC STENTS Current home meds: Active Scripts CLOPIDOGREL BISULFATE (Clopidogrel) 75 MG PO DAILY 30 Days Prov: 09/21/16 Diltiazem Hcl (Cardizem Cd 120MG Cap) 120 MG PO DAILY 30 Days Prov: 09/21/16 Aspirin (Aspirin EC 81MG Tab) 81 MG PO DAILY 30 Days Prov: 09/21/16 Ferrous Sulfate 325 MG PO DAILY 30 Days Prov: 09/21/16 VIT#96/FERROUS FUM/FA ( Tablet) 1 EACH PO DAILY 30 Days Prov: 09/21/16 Sertraline Hcl (Zoloft 50MG) 50 MG PO DAILY 30 Days Prov: 09/21/16 ASCORBIC ACID (Vitamin C) 500 MG PO DAILY 30 Days Prov: 09/21/16 Lisinopril 2.5 MG PO DAILY #30 TAB Prov: 12/07/16 Reported Medications Pioglitazone (Actos 15MG) 15 MG PO DAILY Atorvastatin Calcium (Atorvastatin) 40 MG PO QHS MULTIVITAMIN (Multivitamins) 1 CAP PO DAILY Pantoprazole Sodium (Pantoprazole 40MG) 40 MG PO DAILY NITROGLYCERIN (Nitrostat) 0.4 MG SL [id number] PRN CHEST PAIN Oxybutynin Chloride (Ditropan XL) 10 MG PO DAILY Ins Asp-Prt 70/Asp 30(Nvlogmx) (Novolog Mix 70-30 Flexpen Syrn) 16 UNITS SC BID Social Hx: Smoking HX Tobacco Yes Type Cigarettes Packs/day < 1 PACK Alcohol Alcohol: No Hx of Drug Use Drug Use? No Patien't marital status is Patient's support system is good Review of systems: Constitutional No: fever. Eyes No: drainage. Ears, Nose, Mouth, Throat No ear discharge, No epistaxis, No throat pain Respiratory No: cough, wheezing. Cardiovascular No chest pain, No palpitations, No syncope Gastrointestinal/Abdominal No diarrhea, No vomiting Genitourinary No: dysuria. Musculoskeletal see HPI, joint pain, joint swelling, other. Skin No: rash. Neurological No: seizure disorder. Psychiatric No: no symptoms reported. Exam: Lab data for last 24 hours: Laboratory Tests 12/24/16 0730: Sodium 138, Potassium 5.0, Chloride 105, Carbon Dioxide 26, BUN 18, Creatinine 1.4 H, Estimated Creat Clear 36 L, Estimated GFR (MDRD) 36 L, Glucose 140 H, Calcium 9.0, Total Bilirubin 0.3, AST 19, ALT 26, Alkaline Phosphatase 80, Total Protein 6.8, Albumin 2.5 L, Globulin 4.3 H, Albumin/Globulin Ratio 0.6 L, PT 11.2, INR 1.05, WBC 5.1, RBC 3.11 L, Hgb 9.5 L, Hct 29.0 L, MCV 93.4, RDW 14.0, Plt Count 245, MPV 7.1 L, Gran % 42.3, Gran # 2.2, Lymphocytes % 47.6, Monocytes % 4.6, Eosinophils % 4.4, Basophils % 1.1, Lymphocytes # 2.4, Monocytes # 0.2, Eosinophils # 0.2, Basophils # 0.1, PUBS MCHC 33.0, MCH 30.8 Microbiology 07/08 0805 BLOOD: Anaerobic Blood Culture - ORD 12/24 804 BLOOD: Aerobic Blood Culture - ORD 12/24 800 BLOOD: Anaerobic Blood Culture - ORD 12/24 800 BLOOD: Aerobic Blood Culture - ORD Admission vital signs: 1ST Vital Signs Result Date Time Pulse Ox 96 12/24 728 B/P 155/74 12/24 728 Temp 98.6 12/24 728 Pulse 66 12/24 728 Resp 18 12/24 728 Exam General appearance: alert Eyes: anicteric, PERRLA ENT: dry mucous membranes Neck: no JVD, no bruit Cardiovascular: regular rate & rhythm, murmur Respiratory: no respiratory distress, diminished breath sounds ABD: soft Genitourinary: normal voiding & quantity Extremities: open fx rt wrist Musculoskeletal: equal muscle strength Skin: open wd rt wrist /neurovascular ok 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 Open fracture of right wrist 2. Diabetes mellitus, insulin dependent (IDDM), controlled 3. Anemia Plan: will admit at 0849
--- NOTE | 2016-12-24 08:50 | RADIOLOGY REPORT PS360 ---
WRIST-3 VIEWS-RT COMPARISON: None HISTORY: Right wrist pain and deformity after a fall TECHNIQUE: AP lateral and oblique views FINDINGS: There is a comminuted transverse fracture of the distal radius with dorsal tilt of the distal fracture fragments. There also is a corner triangular-shaped fracture of the distal ulna without significant displacement. The carpal bones appear intact. There is marked generalized osteopenia. There is diffuse soft tissue swelling of the wrist. IMPRESSION: Comminuted fracture distal radius with dorsal tilt of the distal fracture fragments and telescoping of the radial shaft beneath the comminuted fragments along with nondisplaced fracture of the distal ulna
--- NOTE | 2016-12-24 08:51 | RADIOLOGY REPORT PS360 ---
CHEST-PORTABLE COMPARISON: PA and lateral chest 12/06/2016 HISTORY: Chest pain after a fall TECHNIQUE: Portable semiupright chest FINDINGS: The lung sifuentes are well expanded and appear clear of infiltrate. There is mild generalized cardio megaly but is no evidence of failure. There is minimal atelectasis left perihilar region. There is no obvious rib fracture and there is no pneumothorax. IMPRESSION: Mild cardiomegaly is noted
--- NOTE | 2016-12-24 10:30 | CONSULT NOTE ---
Consultation findings: Referring physician: Dr. Cisneros Date of examination: 12/24/16 Time of examination: 1000 Exam findings: History of present illness: Patient is a pleasant 81-year-old [id number] female admitted to the hospital from the ER this morning with grade 1 open fractures of right distal radius and right distal ulna. She is a resident of a skilled nursing and has history of dementia. Hence, she is difficult to communicate with and obtain any meaningful history from her. History as per ER and medical admission notes-she apparently fell this morning sustaining an injury to her right wrist. She was brought to the ER where it was noted that she has superficial lacerations over the volar aspect of the right wrist. X-rays of her right wrist showed a displaced Colles' fracture as well as a nondisplaced fracture of the distal ulna. She received IV antibiotics and sterile dressings were applied. She was admitted for further orthopedic management. Patient was seen by Dr. Whelan and was cleared for surgery. She does not report any other injuries. She has no family locally and she is a [employer]on of the [employer]. She has history of insulin- dependent diabetes, coronary artery disease, hypertension and dementia. No history of any loss of consciousness, dizziness, chest pain or shortness of breath. Past medical history: Family HX Family Hx Insignificant Yes Immunization HX DT/Tetanus Unknown Flu [id number] Flu Season Pneumonia Refuses General CAD? No Angina: No [place]: No Hypertension? Yes Hyperlipidemia? Yes CHF? No DVT? No PE? No COPD? No Asthma? No Anemia? No GERD? No Gastric ulcers? No GI Bleed? No Hernia? No Thyroid Problems? No Hypothyroidism? No CVA? Yes Seizures? No Diabetes? Yes Insulin Dependent: No Insulin Pump: No Home FSBS? No Renal Insuffiency? No UTI? No Stones? No BPH? No GB Disease: No Nephritic Syndrome? No Asplenia? No Hepatitis? No Sickle Cell Disease? No Arthritis? Yes Migraines? No Cataracts? No Glaucoma? No MRSA? No HIV? No TB? No Anxiety? No Depression? No Cancer? No Site: N More? No Past Surgical HX Previous Surgery?Y BLADDER SX HYSTERECTOMY RIGHT ANKLE SEBACEOUS CYST REMOVED ELLY LEGS VEIN STRIPPING CARDIAC STENTS Current home meds: Active Scripts CLOPIDOGREL BISULFATE (Clopidogrel) 75 MG PO DAILY 30 Days Prov: 09/21/16 Diltiazem Hcl (Cardizem Cd 120MG Cap) 120 MG PO DAILY 30 Days Prov: 09/21/16 Aspirin (Aspirin EC 81MG Tab) 81 MG PO DAILY 30 Days Prov: 09/21/16 Ferrous Sulfate 325 MG PO DAILY 30 Days Prov: 09/21/16 VIT#96/FERROUS FUM/FA ( Tablet) 1 EACH PO DAILY 30 Days Prov: 09/21/16 Sertraline Hcl (Zoloft 50MG) 50 MG PO DAILY 30 Days Prov: 09/21/16 ASCORBIC ACID (Vitamin C) 500 MG PO DAILY 30 Days Prov: 09/21/16 Lisinopril 2.5 MG PO DAILY #30 TAB Prov: 12/07/16 Reported Medications Pioglitazone (Actos 15MG) 15 MG PO DAILY Atorvastatin Calcium (Atorvastatin) 40 MG PO QHS MULTIVITAMIN (Multivitamins) 1 CAP PO DAILY Pantoprazole Sodium (Pantoprazole 40MG) 40 MG PO DAILY NITROGLYCERIN (Nitrostat) 0.4 MG SL [id number] PRN CHEST PAIN Oxybutynin Chloride (Ditropan XL) 10 MG PO DAILY Ins Asp-Prt 70/Asp 30(Nvlogmx) (Novolog Mix 70-30 Flexpen Syrn) 16 UNITS SC BID Social Hx: Smoking HX Tobacco Yes Type Cigarettes Packs/day < 1 PACK Alcohol Alcohol: No Hx of Drug Use Drug Use? No Patien't marital status is Patient's support system is good Review of systems: Constitutional No: fever. Eyes No: drainage. Ears, Nose, Mouth, Throat No ear discharge, No epistaxis, No throat pain Respiratory No: cough, wheezing. Cardiovascular No chest pain, No palpitations, No syncope Gastrointestinal/Abdominal No diarrhea, No vomiting Genitourinary No: dysuria. Musculoskeletal see HPI, joint pain, joint swelling, other. Skin No: rash. Neurological No: seizure disorder. Psychiatric No: no symptoms reported. Exam: Lab data for last 24 hours: Laboratory Tests 12/24/16 0730: Sodium 138, Potassium 5.0, Chloride 105, Carbon Dioxide 26, BUN 18, Creatinine 1.4 H, Estimated Creat Clear 36 L, Estimated GFR (MDRD) 36 L, Glucose 140 H, Calcium 9.0, Total Bilirubin 0.3, AST 19, ALT 26, Alkaline Phosphatase 80, Total Protein 6.8, Albumin 2.5 L, Globulin 4.3 H, Albumin/Globulin Ratio 0.6 L, PT 11.2, INR 1.05, WBC 5.1, RBC 3.11 L, Hgb 9.5 L, Hct 29.0 L, MCV 93.4, RDW 14.0, Plt Count 245, MPV 7.1 L, Gran % 42.3, Gran # 2.2, Lymphocytes % 47.6, Monocytes % 4.6, Eosinophils % 4.4, Basophils % 1.1, Lymphocytes # 2.4, Monocytes # 0.2, Eosinophils # 0.2, Basophils # 0.1, PUBS MCHC 33.0, MCH 30.8 Microbiology 12/24 804 BLOOD: Anaerobic Blood Culture - ORD 12/24 804 BLOOD: Aerobic Blood Culture - ORD 12/24 800 BLOOD: Anaerobic Blood Culture - ORD 12/24 800 BLOOD: Aerobic Blood Culture - ORD Admission vital signs: 1ST Vital Signs Result Date Time Pulse Ox 96 12/24 728 B/P 155/74 12/24 728 Temp 98.6 12/24 728 Pulse 66 12/24 728 Resp 18 12/24 728 Exam General appearance: alert, No acute distress Eyes: anicteric, PERRLA ENT: dry mucous membranes Neck: no JVD, no bruit Cardiovascular: regular rate & rhythm Respiratory: no respiratory distress, diminished breath sounds bilaterally ABD: soft, nontender, bowel sounds heard over all 4 quadrants 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 She has 2 small superficial transverse lacerations on the volar aspect of the wrist- One measuring about 1 cm over the distal ulna and the other measuring about half centimeter over the distal radius. Movements of her wrist and forearm are limited with pain. She has good range of finger movements. Distal circulation is intact. Difficult to assess the neurological status as the patient does not respond appropriately to questions due to her dementia. No other injuries noted. There is no tenderness over the right elbow and she has full range of elbow movements. Imaging: X-rays of her RIGHT wrist show comminuted, displaced fracture of the distal radius and a nondisplaced comminuted fracture of the distal ulna. The distal radius metaphysis as well as the radial articular surface appear deformed possibly from a previous fracture. Impression: 1. Grade 1 open fracture Right distal Radius, displaced 2. Grade 1 open fracture Right distal Ulna, non-displaced 3. Diabetes mellitus, insulin dependent (IDDM), controlled 4. Anemia Recommendations: I reviewed the clinical and x-ray findings with the patient. I have discussed the diagnosis, natural history and management options in detail including both nonsurgical and surgical. She has grade 1 open fractures of the right distal radius and distal ulna with significant displacement and overriding of the distal radius fracture. Given the above factors, I have recommended wound debridement, open reduction and internal fixation of the distal radius fracture along with possible fixation of the distal ulna fracture. I discussed the details of the procedure, risks and benefits and alternatives in detail. The complications discussed include but are not limited to infection, injury to nerves , tendons and blood vessels, incisional scar (cosmesis), DVT/PE, malunion , nonunion/delayed union, loss of position, refracture, wrist/finger stiffness, CRPS (complex regional pain syndrome- pain, sensory and temperature changes, swelling and stiffness), painful/prominent hardware, loss of fixation/hardware failure, incomplete relief of pain, incomplete return of function, and likely need for further surgery in future and also the risks of anesthesia including heart attack, stroke, and . I have discussed how there is a small but real possibility of loss of use of the arm, loss of the limb [amputation] or loss of life itself. I have also explained how additional surgery may be required if there are any complications or the fracture fails to heal or the nerve function fails to improve. We have also discussed the postoperative pain management, recovery and rehabilitation, immobilization required, the likely need for physical therapy, the possibility of stiffness, chronic pain and we've also discussed the option of nonsurgical treatment. The patient desires to proceed with the proposed surgery of wound debridement, open reduction and internal fixation of the RIGHT distal radius and distal ulna as appropriate. A telephonic consent was obtained from the appropriate authorities. The puncture wounds over the RIGHT wrist were cleaned and Betadine gauze dressing was applied. A well-padded short-arm volar splint was applied. Patient is admitted to the medical service under Dr. Whelan and she was cleared for surgery by him. I am planning to take her to the OR for surgery at the earliest opportunity today. Administer when necessary analgesia. Please keep the patient nothing by mouth. Keep the limb elevated and encourage the patient to mobilize the fingers. Observe distal CSM. Thank you for the opportunity to participate in the care of this very pleasant patient.
[2016-12-24] MEDS ORDERED: NOVOLOG MI100 UNITS1 SC (14:14)
[2016-12-24] MEDS ORDERED: ROBAFEN100 MG/5 M PO (14:15)
--- NOTE | 2016-12-24 15:07 | Anesthesia Record ---
Anesthesia Record Part I Total IV fluids: 1500 EBL (ml): 0 Urine Output: 0 B/P: 148/74 % SaO2: 95 Pulse: 83 Resps: 12 Temp: 98 Patient is: Awake, Stable Stable to PACU at: 1500 at 1506
--- NOTE | 2016-12-24 15:07 | Anesthesia Record ---
Anesthesia Record Part II Discharge time: 1530 Destination: Second Floor PACU nurse assessment review? Yes Patient is: Awake, Stable Anesthesia complications? No at 1509
--- NOTE | 2016-12-24 15:11 | Operative Note ---
Procedure/Operative Record Date of Procedure: 12/24/16 Referring physician: Dr. Whelan Pre-op diagnosis: 1. Grade 1 open, comminuted, displaced distal radius fracture (Colles fracture), RIGHT wrist 2. Grade 1 open, nondisplaced distal ulnar fracture, RIGHT wrist Post-op diagnosis: 1. Grade 1 open, comminuted, displaced distal radius fracture (Colles fracture), RIGHT wrist 2. Grade 1 open, nondisplaced distal ulnar fracture, RIGHT wrist Procedure performed: 1. Wound debridement, RIGHT wrist 2. Open reduction and internal fixation of distal radius fracture, RIGHT Surgeon: CAMELIA RIZVI MD Motorcycle Fabricator(s): Josie Bueno Anesthesia: General Indications: Patient is an 81-year-old [id number] female who sustained a grade 1 open displaced fracture of her RIGHT distal radius (Colles fracture) and grade 1 open nondisplaced fracture of her RIGHT distal ulna when she fell down earlier this morning. The distal radius fracture was displaced, comminuted and unstable. Patient was admitted from the ER for observation, started on IV antibiotics and prepared for surgery the same day. Following a detailed discussion with the patient about the management options including both nonsurgical and surgical, she elected to proceed with surgical remediation. On the day of surgery I met the patient on the floor and discussed the details of the procedure, risks and benefits, alternatives and the expected outcomes. The complications discussed include but are not limited to infection, bleeding, injury to nerves, blood vessels and tendons, malunion, nonunion, loss of fixation, stiffness, CRPS as well as the anesthetic complications including heart attack, stroke and even . She expressed a full understanding and wished to proceed. The operative side was marked and the consent form was reviewed and signed. Findings: Grade 1 open displaced, comminuted and unstable fracture of the RIGHT distal radius and a grade 1 open nondisplaced stable fracture of the RIGHT distal ulna. There were 2 separate skin lacerations on the volar aspect of the wrist each measuring about 0.5-1 cm in size. There was no obvious contamination or foreign body material noted. 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 Description of procedure: Patient was brought to the operating room and placed supine on the table. The RIGHT upper extremity was placed over an arm table. All the bony prominences were well padded. A general anesthesia was administered by the anesthetic team. Patient has already received 2 g of Ancef on admission in the ER therefore, a 900 mg dose of IV clindamycin was administered by the bpo specialist for preoperative prophylaxis. A well-padded tourniquet cuff was applied over the RIGHT upper arm. The RIGHT upper extremity was prepped and draped in the usual sterile fashion. A preprocedure timeout was performed as per hospital protocol. The skin incision was marked over the distal forearm anteriorly for the volar approach to distal radius. Before making the skin incision, the lacerations was thoroughly washed out with 2 L of normal saline. The skin edges of the lacerations were freshened and debrided. No obvious contamination or foreign body material was noted in the wounds. We then proceeded to perform open reduction and internal fixation of the distal radius fracture. The limb was exsanguinated with Esmarch bandage and tourniquet was inflated to 250 mmHg. Please see the nursing notes for the total tourniquet time. Skin incision was made over the distal radius for an anterior volar approach. The incision was deepened through the subcutaneous tissue and the FCR tendon was identified. The FCR sheath was opened and the tendon retracted medially. The deeper dissection was carried through the bed of the FCR tendon to expose the FPL muscle and tendon which were retracted medially. The pronator quadratus was released in an L-shaped fashion on the radial and distal margins and elevated from the bone with the periosteal elevator. This exposed the distal radius fracture and the distal shaft of the radius. The fracture site was cleared of hematoma and, the fracture as well as the soft tissues was thoroughly irrigated with 3 L of normal saline. The median nerve was inspected and noted to be in continuity without any obvious injury. The fracture was noted to be grossly comminuted on the distal radius was noted to be somewhat deformed. The fracture was then reduced in a stable fashion under direct vision/under C-arm control and a 4 holed Kt distal radius plate was positioned across the fracture site and provisionally secured with K wires. After confirming the satisfactory reduction and the position of the plate under fluoroscopic guidance, a drill hole was made through the oval hole and the plate was secured to the proximal fragment with a cortical screw. Then the distal fragment was secured to the plate with both locking and nonlocking screws in an appropriate fashion. Then the fixation of the plate to the proximal fragment was completed with further nonlocking and locking cortical screws. This gave us a very good reduction of the fracture and a stable fixation. The wrist was put through the range of motion and the appropriate placement of the screws and their lengths were confirmed under fluoroscopy screening including a 20 degree lateral view. No intra-articular screw penetration was noted. We then screened the distal radioulnar joint under fluoroscopic guidance. The ulnar head fracture was noted to be well reduced and stable after the distal radius fracture was reduced and fixed. Therefore we have decided not to fix the distal ulna. The distal radioulnar joint was noted to be stable. The final fluoroscopic images were obtained and stored digitally. The tourniquet was deflated and hemostasis obtained with bipolar diathermy. The wounds were again thoroughly washed out with 2 more liters of normal saline. The pronator quadratus was repaired with 2-0 Vicryl sutures. Then the incision was closed in layers with 2-0 Vicryl to subcutaneous tissue and 4-0 Monocryl subcuticular sutures and Steri-Strips to skin. The small lacerations over the volar aspect of the wrist were not sutured but approximated with Steri-Strips. At the end of the procedure we also noted a 2 cm superficial skin laceration over the dorsum of the hand. This was irrigated with normal saline and approximated with Steri- Strips. Sterile dressings were applied to all the wounds. The tourniquet cuff was removed. A well-padded short-arm Ortho-Glass splint was applied. Patient was then reversed from the anesthetic and transferred onto the [facility]. She was then transported to the postoperative recovery area in a stable condition. She tolerated the procedure well and there were other complications except for the superficial skin laceration noted as above. Swabs, needles and instrument counts were correct at the end of the procedure as per the scrub team. She will receive IV antibiotics for 48 hours at which point well inspect the wounds. Advised to keep the hand elevated and mobilize the fingers. EBL (ml): 10 Implant: Kt distal radius locking plate and screws. Industry internet sales representative- Lowell Jones from [employer]. Complications: About 2 cm superficial skin laceration on the dorsum of the hand- approximated with Steri-Strips and sterile dressings applied. Specimens: None
--- NOTE | 2016-12-24 16:09 | RADIOLOGY REPORT PS360 ---
WRIST-3 VIEWS-RT COMPARISON: Right wrist same date HISTORY: Comminuted fractures distal radius and fracture distal ulna TECHNIQUE: Fluoroscopy during ORIF FINDINGS: Fluoroscopic spot films show placement of the metallic plate fixating reduction of the comminuted fracture the distal radius. Plate is fixated and multiple threaded screws and shows reduction of the dorsal tilt of the distal fracture fragments. The distal ulnar fracture is stable. IMPRESSION: ORIF distal radial comminuted fracture as noted
[2016-12-25] VITALS (24 sets, daily range): BP systolic 95–152; BP diastolic 35–87
[2016-12-25 06:41] LABS: LYMPH # 1.3 K/mm3 (0.7-4.5); LYMPH % 21.3 % (10-50.0)
--- NOTE | 2016-12-25 06:56 | ACUTE CARE PROGRESS NOTE (QUA) ---
Progress Notes Subjective Date 12/25/16 Time 0648 Note doing better Patient/family reports: feeling better Nursing reports: no complaints Objective Findings Last VS-Temp:98.7 B/P:142/62 Pulse:69 Resp:18 SaO2:98 OXYGEN Last weight lbs:142 oz:7 K.609 Method:Bed Scales Exam General appearance: alert Eyes: PERRLA ENT: dry mucous membranes Neck: no JVD Cardiovascular: regular rate & rhythm Respiratory: no respiratory distress ABD: soft Genitourinary: no hematuria Extremities: rt wrist in splint Musculoskeletal: motor intact Skin: dry Neuro: alert, coding compliance manager II-XII nml as tested Reviewed: allergies, medications, vital signs, lab results, radiology report, consult note Assessment/Plan Problem List 1. Open fracture of right wrist 2. Diabetes mellitus, insulin dependent (IDDM), controlled 3. Anemia Patient condition Improving Plan: continue current care This inpt stay is expected to cross 2 MNs from start of care Yes Comments: will check lab work Antibiotic Stewardship (2) Current Culture Results Microbiology 12/24 817 BLOOD: Anaerobic Blood Culture - RECD 12/24 817 BLOOD: Aerobic Blood Culture - RECD at 0655
--- NOTE | 2016-12-25 06:56 | ACUTE CARE PROGRESS NOTE (QUA) ---
Progress Notes Subjective Date 12/25/16 Time 0648 Note doing better Patient/family reports: feeling better Nursing reports: no complaints Objective Findings Last VS-Temp:98.7 B/P:142/62 Pulse:69 Resp:18 SaO2:98 OXYGEN Last weight lbs:142 oz:7 K.609 Method:Bed Scales Exam General appearance: alert Eyes: PERRLA ENT: dry mucous membranes Neck: no JVD Cardiovascular: regular rate & rhythm Respiratory: no respiratory distress ABD: soft Genitourinary: no hematuria Extremities: rt wrist in splint Musculoskeletal: motor intact Skin: dry Neuro: alert, nuclear pharmacist II-XII nml as tested Reviewed: allergies, medications, vital signs, lab results, radiology report, consult note Assessment/Plan Problem List 1. Open fracture of right wrist 2. Diabetes mellitus, insulin dependent (IDDM), controlled 3. Anemia Patient condition Improving Plan: continue current care This inpt stay is expected to cross 2 MNs from start of care Yes Comments: will check lab work Antibiotic Stewardship (2) Current Culture Results Microbiology 12/24 817 BLOOD: Anaerobic Blood Culture - RECD 12/24 817 BLOOD: Aerobic Blood Culture - RECD at 0655
--- NOTE | 2016-12-25 08:16 | PHARMACY CLINIC NOTE ---
Patient Demographics Patient Demographics Admission date: 12/24/16 Date: 12/25/16 Time: 08 Allergies Coded Allergies: BANANAS (FOOD) (From BANANAS (FOOD/DRUG)) (12/24/16) HEIGHT- FT: 5 IN: 6.00 K.609 VTE General Information Labs: Laboratory Tests 12/25 614 Hematology Hgb (12.2 - 16.2 g/dL) 8.0 L Hct (37.0 - 47.0 %) 24.7 L Plt Count (142 - 424 K/mm3) 190 Disclaimer The following section includes nursing documentation that has been pulled in for pharmacy review. Patient's VTE score: 3 Patient's VTE Risk: LOW RISK Clinical trial participant? No VTE prophylaxis NQF [id number] VTE prophylaxis ordered? Yes Type of prophylaxis/treatment: ICD at 0815
[2016-12-25 09:13] LABS: ABO BLOOD TYPE A; RH BLOOD TYPE POSITIVE
[2016-12-25 09:21] LABS: ANTIHUMAN GLOB CROSSMATCH COMPAT
--- NOTE | 2016-12-25 13:11 | ACUTE CARE PROGRESS NOTE ---
Progress note Date: 12/25/16 Assessment: Subjective data: Patient is status post wound debridement and ORIF, RIGHT distal radius fracture, post op day # 1. She says she is doing well and reports no pain. She is eating and drinking well. The nursing staff reports no problems. No history of any fevers, chills or rigors. No history of any distal tingling or numbness. Objective: I reviewed the vitals, labs, medication, medical progress note and also discussed with the nursing staff. Exam General appearance: Well built age appropriate female lying in bed. She is eating her lunch. She is in no acute distress. She is somewhat reluctant to answer questions appropriately. Cardiovascular: regular rate & rhythm Respiratory: clear to auscultation, no respiratory distress ABD: soft, non tender, non-distended, normal bowel sounds. Extremities: The RIGHT wrist is in a short-arm splint. The dressings/splint over the RIGHT wrist are clean, dry and intact. She has swelling of her fingers but is able to actively mobilize them. Distal neurovascular status is intact. Capillary refill less than 2 seconds. She reports normal sensation throughout the hand. She has full range of pain-free movements. Impression: 1. Open fracture of right wrist Qualifiers Encounter type: initial encounter Qualified Code: S62.101B - Fracture of unspecified carpal bone, right wrist, initial encounter for open fracture 2. Diabetes mellitus, insulin dependent (IDDM), controlled 3. Anemia Plan: Reviewed the surgical findings, procedure on postoperative x-rays with the patient. Encouraged her to keep the hand elevated and mobilize her fingers actively. Discontinue IV fluids if eating and drinking well. Continue IV antibiotics for 48 hours postop. For wound inspection tomorrow and possible discharge on oral antibiotics if the wounds are healthy. Medical management as per Dr. Whelan. Antibiotic Stewardship (2) Current Culture Results Microbiology 12/24 817 BLOOD: Anaerobic Blood Culture - RECD 12/24 817 BLOOD: Aerobic Blood Culture - RECD
[2016-12-25 17:54] LABS: HEMOGLOBIN 10.2 g/dL (12.2-16.2)
[2016-12-26 03:40] VITALS: BP 103/67
[2016-12-26 07:55] VITALS: BP 126/53
--- NOTE | 2016-12-26 08:47 | ACUTE CARE PROGRESS NOTE (QUA) ---
Progress Notes Subjective Date 12/26/16 Time 0844 Note doing better Patient/family reports: feeling better Nursing reports: no complaints Objective Findings Last VS-Temp:99.0 B/P:126/53 Pulse:60 Resp:18 SaO2:95 ROOM AIR Last weight lbs:142 oz:7 K.609 Method:Bed Scales Exam General appearance: alert Eyes: PERRLA ENT: dry mucous membranes Neck: no JVD Cardiovascular: regular rate & rhythm Respiratory: no respiratory distress ABD: soft Genitourinary: no hematuria Extremities: cast rt wrist Musculoskeletal: equal muscle strength Skin: dry Neuro: alert, installment dealer II-XII nml as tested Reviewed: allergies, medications, vital signs, lab results Assessment/Plan Problem List 1. Open fracture of right wrist 2. Diabetes mellitus, insulin dependent (IDDM), controlled 3. Anemia 4. Renal insufficiency Patient condition Improving Plan: continue current care This inpt stay is expected to cross 2 MNs from start of care Yes Comments: will check with ortho for follow up at 0846
--- NOTE | 2016-12-26 08:47 | ACUTE CARE PROGRESS NOTE (QUA) ---
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 Open fracture of right wrist 2. Diabetes mellitus, insulin dependent (IDDM), controlled 3. Anemia 4. Renal insufficiency Patient condition Improving Plan: continue current care This inpt stay is expected to cross 2 MNs from start of care Yes Comments: will check with ortho for follow up at 0846
[2016-12-26 09:00] VITALS: BP 126/53
--- NOTE | 2016-12-26 11:18 | ACUTE CARE PROGRESS NOTE ---
Progress note Date: 12/26/16 Assessment: Subjective data: Patient is status post wound debridement and ORIF, RIGHT distal radius fracture, post op day # 2. She says she is doing well and reports no pain or discomfort. She is eating and drinking well. The nursing staff reports no problems. No history of any fevers, chills or rigors. No history of any distal tingling or numbness. She says she wants to go home and requesting to be discharged. Objective: I reviewed the vitals, labs, medication, medical progress note and also discussed with the nursing staff. Exam General appearance: Well built age appropriate female lying in bed. She is not in any acute distress. Cardiovascular: regular rate & rhythm Respiratory: clear to auscultation, no respiratory distress ABD: soft, non tender, non-distended, normal bowel sounds. Extremities: The RIGHT wrist is in a short-arm splint. The dressings/splint over the RIGHT wrist are clean, dry and intact. She has swelling of her fingers but is able to actively mobilize them. Distal neurovascular status is intact. Capillary refill less than 2 seconds. She reports normal sensation throughout the hand. She has full range of pain-free movements. The dressings were changed by me- the wounds appear healthy and there are no signs of any infection. We have reapplied a well-padded short-arm splint. Impression: 1. Open fracture of right wrist Qualifiers Encounter type: initial encounter Qualified Code: S62.101B - Fracture of unspecified carpal bone, right wrist, initial encounter for open fracture 2. Diabetes mellitus, insulin dependent (IDDM), controlled 3. Anemia 4. Renal insufficiency Plan: Reviewed the findings and progress with the patient. The dressings were changed and the wounds are healthy. The short-arm splint was reapplied. Encouraged her to keep the hand elevated and mobilize her fingers actively. From an orthopedic standpoint, patient can be discharged on oral antibiotics for 5 days. Follow-up in my office in 3-4 days' time for wound inspection. Medical management as per Dr. Whelan. Antibiotic Stewardship (2) Current Culture Results Microbiology 12/24 817 BLOOD: Anaerobic Blood Culture - RES 12/24 817 BLOOD: Aerobic Blood Culture - RES
[2016-12-26 11:36] VITALS: BP 137/74
[2016-12-26] MEDS ORDERED: KEFLEX 500MG.500 MG PO (12:52)
--- NOTE | 2016-12-26 12:55 | DISCHARGE SUMMARY STANDARD ---
Demographics Admit date: 12/24/16 Discharge date: 12/26/16 History of present illness History of present illness this wf from local half-way fell this am with no def etiology of fall- she has diabetes and cad but no loc and suffered open fx rt wrist and was seen at [facility] and will be seen by dr mondragon and have surg this am and will be admitted Hospital Course Hospital Course: pt did well with surg and has uncomplicated post op course and will return to half-way for follow up with ortho in a few days Discharge diagnoses Problem List 1. Open fracture of right wrist 2. Diabetes mellitus, insulin dependent (IDDM), controlled 3. Anemia 4. Renal insufficiency Medications Medications: Discharge meds are as noted. Comment: will d/c today for follow up Follow up Follow up in office in: 4 DAYS with: BELKYS SALGADO, CAMELIA TYSON Comment: post op check at 4160
--- NOTE | 2016-12-26 12:55 | DISCHARGE SUMMARY STANDARD ---
Demographics Admit date: 12/24/16 Discharge date: 12/26/16 History of present illness History of present illness this wf from local long term fell this am with no def etiology of fall- she has diabetes and cad but no loc and suffered open fx rt wrist and was seen at [facility] ed and will be seen by dr mondragon and have surg this am and will be admitted Hospital Course Hospital Course: pt did well with surg and has uncomplicated post op course and will return to long term for follow up with ortho in a few days Discharge diagnoses Problem List 1. Open fracture of right wrist 2. Diabetes mellitus, insulin dependent (IDDM), controlled 3. Anemia 4. Renal insufficiency Medications Medications: Discharge meds are as noted. Comment: will d/c today for follow up Follow up Follow up in office in: 4 DAYS with: BELKYS SALGADO, CAMELIA TYSON Comment: post op check at 8187
[2016-12-26 15:54] VITALS: BP 126/69
[2016-12-26 19:31] VITALS: BP 147/64
[2016-12-27] VITALS (8 sets, daily range): BP systolic 123–157; BP diastolic 52–81
--- NOTE | 2016-12-27 10:18 | ACUTE CARE PROGRESS NOTE ---
Progress note Date: 12/27/16 Assessment: Subjective data: Patient is status post wound debridement and ORIF, RIGHT distal radius fracture, post op day # 3. She says she is doing well and reports no pain or discomfort. She is eating and drinking well. The nursing staff reports no problems. No history of any fevers, chills or rigors. No history of any distal tingling or numbness. Objective: I reviewed the vitals, labs, medication, medical progress note and also discussed with the nursing staff. Exam General appearance: Well built age appropriate female lying in bed. She is not in any acute distress. Cardiovascular: regular rate & rhythm Respiratory: clear to auscultation, no respiratory distress ABD: soft, non tender, non-distended, normal bowel sounds. Extremities: The RIGHT wrist is in a short-arm splint. The dressings/splint over the RIGHT wrist are clean, dry and intact. The swelling of her fingers has significantly improved and she has better movement of the fingers compared to yesterday. Distal neurovascular status is intact. Capillary refill less than 2 seconds. She reports normal sensation throughout the hand. She has full range of pain-free elbow movements. Impression: 1. Open fracture of right wrist Qualifiers Encounter type: initial encounter Qualified Code: S62.101B - Fracture of unspecified carpal bone, right wrist, initial encounter for open fracture 2. Diabetes mellitus, insulin dependent (IDDM), controlled 3. Anemia 4. Renal insufficiency Plan: Reviewed the findings and progress with the patient. Encouraged her to continue to keep the hand elevated and mobilize her fingers actively. Patient is from a personal detention and apparently failed her assessment to go back to. Therefore she is waiting for a rehab place. Care management to look into discharge planning. From an orthopedic standpoint, patient can be discharged on oral antibiotics for 5 days. Follow-up in my office in 3-4 days' time for wound inspection. Medical management as per Dr. Whelan. at 1018
--- NOTE | 2016-12-27 12:29 | ACUTE CARE PROGRESS NOTE (QUA) ---
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 Open fracture of right wrist 2. Diabetes mellitus, insulin dependent (IDDM), controlled 3. Anemia 4. Renal insufficiency Patient condition Stable Plan: order additional tests This inpt stay is expected to cross 2 MNs from start of care Yes Comments: will check hip xrays and labs as pt has been limited ambulation after fall with wrist fracture Antibiotic Stewardship (2) Current Culture Results Microbiology 12/24 817 BLOOD: Anaerobic Blood Culture - RES 12/24 817 BLOOD: Aerobic Blood Culture - RES at 1228
--- NOTE | 2016-12-27 12:29 | ACUTE CARE PROGRESS NOTE (QUA) ---
See Addendum Progress Notes Subjective Date 12/27/16 Time 1226 Note pt awake Patient/family reports: feeling better Nursing reports: pain Objective Findings Last VS-Temp:98.6 B/P:131/74 Pulse:78 Resp:20 SaO2:95 ROOM AIR Last weight lbs:142 oz:7 K.609 Method:Bed Scales Exam General appearance: awake Eyes: PERRLA ENT: dry mucous membranes Neck: no JVD Cardiovascular: regular rate & rhythm Respiratory: no respiratory distress ABD: soft Genitourinary: no hematuria Extremities: moves all, splint on rt Musculoskeletal: equal muscle strength Skin: dry Neuro: alert, pump tester II-XII nml as tested Reviewed: allergies, medications, vital signs, lab results, consult note Assessment/Plan Problem List 1. Open fracture of right wrist 2. Diabetes mellitus, insulin dependent (IDDM), controlled 3. Anemia 4. Renal insufficiency Patient condition Stable Plan: order additional tests This inpt stay is expected to cross 2 MNs from start of care Yes Comments: will check hip xrays and labs as pt has been limited ambulation after fall with wrist fracture Antibiotic Stewardship (2) Current Culture Results Microbiology 12/24 817 BLOOD: Anaerobic Blood Culture - RES 12/24 817 BLOOD: Aerobic Blood Culture - RES at 1228
--- NOTE | 2016-12-27 12:32 | RADIOLOGY REPORT PS360 ---
HIP LT 2-3V W/PELVIS IF PERFOR COMPARISON: Left hip same date HISTORY: Right hip pain after a fall TECHNIQUE: Portable AP and frog-leg views FINDINGS: The left pubic bones appear intact. The femoral head and neck appear intact and is no significant joint space narrowing. The soft tissues are normal and there are no calcifications seen. IMPRESSION: Grossly negative left hip
--- NOTE | 2016-12-27 12:35 | RADIOLOGY REPORT PS360 ---
HIP RT 2-3V W/PELVIS IF PERFOR COMPARISON: Left hip same date HISTORY: Right hip pain after a fall TECHNIQUE: Portable AP pelvis, cone-down AP and crosstable lateral views FINDINGS: There is a subcapital femoral neck fracture noted without significant displacement or angulation. There is minor asymmetrical joint space narrowing of the hip joint. The soft tissues are normal. The iliac bones and. Bones appear intact. IMPRESSION: Subcapital femoral neck fracture
[2016-12-27 13:48] LABS: HEMOGLOBIN 11.2 g/dL (12.2-16.2); LYMPH # 1.7 K/mm3 (0.7-4.5); LYMPH % 21.8 % (10-50.0)
--- NOTE | 2016-12-27 15:24 | RADIOLOGY REPORT PS360 ---
CT HEAD W/O CONTRAST COMPARISON: CT scan of brain noncontrast 09/24/2016 HISTORY: Recent fall TECHNIQUE: Multiaxial scans obtained from base skull to the vertex and were performed without IV contrast. FINDINGS: The base of skull appears normal, the mastoids are clear. Both internal auditory canals appear normal. The basilar cisterns are normal for age. Again noted is a large area of encephalomalacia left MCA distribution consistent with old ischemic infarct. There is mild diffuse ventricular megaly. There is no bleed and there is no new ischemic infarct. There are minimal periventricular hypodensities consistent with chronic ischemic white matter changes. The bony calvarium appears intact showing evidence of hyperostosis frontalis interna. 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
--- NOTE | 2016-12-27 15:58 | ACUTE CARE PROGRESS NOTE ---
Progress note Date: 12/27/16 Assessment: Subjective: Patient was admitted during the weekend and underwent ORIF of her RIGHT wrist failed history assessment back to the senior care. She was not able to walk weightbearing on the RIGHT side. She is not complaining of any pain. As she is not able to weight-bear on the RIGHT side she had x-rays of her pelvis and both hips today. The x-rays are showing a displaced subcapital fracture neck of RIGHT femur. Patient denies any pain in her hip joint. Objective: Reviewed the vital signs, labs, x-rays, medical progress note and discussed with the nursing staff. Laboratory Tests 12/27/16 1250: Sodium 140, Potassium 3.6, Chloride 106, Carbon Dioxide 24, BUN 18, Creatinine 0.8, Estimated Creat Clear 56, Estimated GFR (MDRD) 69, Glucose 154 H, Calcium 8.2 L, Total Bilirubin 0.5, AST 25, ALT 18, Alkaline Phosphatase 84, Total Protein 6.1 L, Albumin 1.9 L, Globulin 4.2 H, Albumin/Globulin Ratio 0.5 L, WBC 7.7, RBC 3.81 L, Hgb 11.2 L, Hct 34.8 L, MCV 91.4, RDW 15.4, Plt Count 210, MPV 7.4, Gran % 71.3, Gran # 5.5, Lymphocytes % 21.8, Monocytes % 4.2, Eosinophils % 2.3, Basophils % 0.5, Lymphocytes # 1.7, Monocytes # 0.3, Eosinophils # 0.2, Basophils # 0.0, PUBS MCHC 32.1, MCH 29.3 12/27/16 1154: POC Glucose 125 H 12/27/16 0617: POC Glucose 144 H 12/26/16 1701: POC Glucose 199 H Vital Signs Result Date Time Resp 20 12/27 1504 Pulse Ox 95 12/27 1150 B/P 131/74 12/27 1150 O2 Delivery ROOM AIR 12/27 1150 Pulse 78 12/27 1150 Temp 98.6 12/27 0846 O2 Flow Rate 2 12/25 1917 Exam: General Appearance: normal appearance, well built. No acute distress, her mood and affect are appropriate for her situation. ENT: mucous membranes moist Neck: normal inspection, non-tender, supple, full range of motion, trachea central Respiratory: chest symmetrical, non tender chest. No respiratory distress. Normal breath sounds bilaterally Cardiovascular: regular rate/rhythm, no peripheral edema, no gallop, no JVD, no murmur, no rub, normal peripheral pulses Gastrointestinal: Abdomen is soft and nontender, normal bowel sounds over all 4 quadrants, no organomegaly, no CVA tenderness. Neurologic: alert, normal exam; cranial nerves II-12: intact Skin: intact, normal color, warm/dry On examination of her lower extremities, there is shortening of the RIGHT leg and the foot is externally rotated. On examination of the RIGHT hip, the skin is normal. No rashes or lesions noted. She is tender over the RIGHT hip. Any attempted movements of the RIGHT hip are painful. Thigh and calf are soft and nontender. Dorsalis pedis and posterior tibial pulses are palpable 2+ bilaterally. Sensation is grossly intact. She has good range of foot, ankle and toe movements. Imaging: X-rays of her pelvis, RIGHT and LEFT hip joints multiple views performed today were reviewed along with the radiologist's report. The x-rays show a displaced intracapsular fracture neck of RIGHT femur. No other acute changes noted. There is a degree of osteopenia noted. Impression: 1. Open fracture of right wrist Qualifiers Encounter type: initial encounter Qualified Code: S62.101B - Fracture of unspecified carpal bone, right wrist, initial encounter for open fracture 2. Diabetes mellitus, insulin dependent (IDDM), controlled 3. Anemia 4. Renal insufficiency 5. Fracture of neck of right femur Status: Acute Onset Date: 12/27/16 Qualifiers Encounter type: initial encounter Fracture type: closed Qualified Code: S72.001A - Fracture of unspecified part of neck of right femur, initial encounter for closed fracture Plan: I reviewed the clinical and x-ray findings with the patient. I have discussed the diagnosis and management options in detail including both nonsurgical and surgical. I have recommended surgical remediation in the form of a hemiarthroplasty RIGHT hip. I explained the procedure, risks, benefits, alternatives and the expected postoperative course. The complications discussed include but are not limited to infection, injury to nerves and blood vessels, DVT and PE, femur fracture, limb length inequality, dislocation, implant failure , loosening, acetabular wear, osteolysis, periprosthetic femur fracture, heterotopic ossification, abductor weakness and a limp, incomplete relief of pain, incomplete return of function or motion, likely need for further surgery in future including revision, anesthetic/medical complications including heart attack, stroke, transfusion reactions and even . We discussed how any of these events can be devastating. We have discussed nonsurgical alternatives as well. I've explained that the patient is at a significant surgical risk due to her age, medical issues, and fragility of the bone. The patient seemed to understand and accepts these risks. We have discussed nonsurgical alternatives as well. The nonoperative management would essentially consist of prolonged bed rest and traction (skeletal/skin) in bed and pain medication and has exceptionally poor outcome. This could result in nonunion and malunion of the fracture and almost certainly, the patient has a very high risk of decubitus ulcers, UTI, respiratory tract infections, DVT/PE and other complications from being bedridden. I have explained to her that the standard of care for this sort of injury is surgical throughout the country unless the patient is very ill for surgical management. We also discussed the postoperative course including the rehab and physical therapy required. She lives in a personal senior care and may need to go to a short-term rehab place after surgery. All her questions were answered and she verbalized a good understanding. We will obtain a preoperative anesthetic evaluation. She is scheduled for surgery tomorrow morning. I have recommended- Type and screen Nothing by mouth after midnight Continue IV fluids DVT prophylaxis as per protocol Analgesia as needed Consent patient for a hemiarthroplasty RIGHT hip. Order 2 g of IV Ancef for preoperative prophylaxis to start half an hour before surgery Antibiotic Stewardship (2) Current Culture Results Microbiology 12/24 817 BLOOD: Anaerobic Blood Culture - RES 12/24 817 BLOOD: Aerobic Blood Culture - RES
[2016-12-28] VITALS (14 sets, daily range): BP systolic 119–157; BP diastolic 46–93
[2016-12-28 06:08] LABS: HEMOGLOBIN 10.7 g/dL (12.2-16.2); LYMPH # 1.5 K/mm3 (0.7-4.5)
[2016-12-28 06:52] LABS: ABO BLOOD TYPE A; RH BLOOD TYPE POSITIVE
--- NOTE | 2016-12-28 09:01 | ACUTE CARE PROGRESS NOTE (QUA) ---
Progress Notes Subjective Date 12/28/16 Time 0900 Note surg today Patient/family reports: pain Nursing reports: no complaints Objective Findings Last VS-Temp:99.1 B/P:146/70 Pulse:70 Resp:20 SaO2:93 OXYGEN Last weight lbs:165 oz:8 K.07 Method:Bed Scales Exam General appearance: alert Eyes: anicteric ENT: dry mucous membranes Neck: no JVD Cardiovascular: regular rate & rhythm Respiratory: no respiratory distress ABD: soft Genitourinary: no hematuria Extremities: moves all Musculoskeletal: equal muscle strength Skin: dry Neuro: alert Reviewed: allergies, medications, vital signs, lab results, consult note Assessment/Plan Problem List 1. Open fracture of right wrist 2. Diabetes mellitus, insulin dependent (IDDM), controlled 3. Anemia 4. Renal insufficiency 5. Fracture of neck of right femur Status: Acute Onset Date: 12/27/16 Patient condition Stable Plan: continue current care This inpt stay is expected to cross 2 MNs from start of care Yes Comments: hip fx repair at 0656
--- NOTE | 2016-12-28 10:12 | Anesthesia Record ---
Anesthesia Record Part I Total IV fluids: 1800 EBL (ml): 150 Urine Output: 250 B/P: 138/61 % SaO2: 94 Pulse: 70 Resps: 12 Temp: 97 Patient is: Awake, Stable Stable to PACU at: 1005 at 1012
--- NOTE | 2016-12-28 10:12 | Anesthesia Record ---
Anesthesia Record Part II Discharge time: 1035 Destination: Second Floor PACU nurse assessment review? Yes Patient is: Awake, Stable Anesthesia complications? No at 1012
[2016-12-28 10:31] LABS: URINE BILIRUBIN - DIPSTICK NEGATIVE (NEG); URINE BLOOD TRACE-INTACT (NEG)
--- NOTE | 2016-12-28 12:10 | RADIOLOGY REPORT PS360 ---
HIP RT 2-3V W/PELVIS IF PERFOR Ordering Physician: Jono Whelan MD Patient Age: 81 years: Female HISTORY: POST-OP HEMIARTHROPLASTY TECHNIQUE: Portable AP and crosstable lateral right hip post femoral head hip replacement FINDINGS Yesterday's study showed a impacted subcapital hip fracture. Patient has now undergone right femoral head replacement Bipolar right hip prosthesis now in place. Medullary stem of appropriately placed within the proximal femur. Slight posterior bypass towards the tip of the stem on lateral view noted.. The prosthetic femoral head articulates satisfactory with the [place] acetabulum.. The visualized right hemipelvis unremarkable. Roldan catheter in place. IMPRESSION: . Right bipolar femoral prosthesis now in place..
--- NOTE | 2016-12-28 12:10 | RADIOLOGY REPORT PS360 ---
HIP RT 2-3V W/PELVIS IF PERFOR Ordering Physician: Jono Whelan MD Patient Age: 81 years: Female HISTORY: POST-OP HEMIARTHROPLASTY TECHNIQUE: Portable AP and crosstable lateral right hip post femoral head hip replacement FINDINGS Yesterday's study showed a impacted subcapital hip fracture. Patient has now undergone right femoral head replacement Bipolar right hip prosthesis now in place. Medullary stem of appropriately placed within the proximal femur. Slight posterior bypass towards the tip of the stem on lateral view noted.. The prosthetic femoral head articulates satisfactory with the [place] acetabulum.. The visualized right hemipelvis unremarkable. Roldan catheter in place. IMPRESSION: . Right bipolar femoral prosthesis now in place..
--- NOTE | 2016-12-28 16:49 | Operative Note ---
Procedure/Operative Record Date of Procedure: 12/28/16 Referring physician: Dr. Whelan Pre-op diagnosis: Displaced fracture neck of femur, RIGHT hip Post-op diagnosis: Displaced fracture neck of femur, RIGHT hip Procedure performed: Bipolar hemiarthroplasty, RIGHT hip Surgeon: CAMELIA RIZVI MD Baseboard Heating Installer(s): Carolyn Gandhi Anesthesia: Spinal Indications: Patient is an 81-year-old female who sustained a displaced intracapsular fracture neck of RIGHT femur following a mechanical fall. A hemiarthroplasty was indicated to relieve pain and restore function. Findings: Displaced sub capital femoral neck fracture of the RIGHT hip as noted on the preoperative hip x-rays. The articular cartilage of the acetabulum is well maintained without evidence of any significant arthritis. The proximal femur bone quality is good. Description of procedure: On the day of the procedure the patient was met on the floor, and a physical examination was performed. The operating side and site were marked and initialed by me. I reviewed the diagnosis, natural history and management options in detail including both the nonsurgical and surgical. Given the nature of the fracture, I have recommended surgery in the form of a hemiarthroplasty of the RIGHT hip. I discussed the procedure, risks and benefits, alternatives, potential complications and expected outcomes with the patient and family. The complications discussed include but are not limited to infection, injury to nerves and blood vessels, DVT and PE, femur fracture, limb length inequality, dislocation, implant failure, loosening, acetabular wear, osteolysis, periprosthetic femur fracture, heterotopic ossification, abductor weakness and a limp, incomplete relief of pain, incomplete return of function or motion, likely need for further surgery in future including revision, anesthetic/medical complications including heart attack, stroke, transfusion reactions and even . We discussed how any of these events can be devastating. We have discussed nonsurgical alternatives as well. We also discussed the postoperative course including the rehab and physical therapy required. The consent form was reviewed and signed. The patient was brought to the operating room and a spinal anesthesia was administered by the interior design program chair. The patient was then transferred onto the operating table and positioned in the LEFT lateral decubitus position with the RIGHT hip facing upwards. All the bony prominences were well-padded. The RIGHT lower extremity was then prepped and draped in the usual sterile fashion. The entire operative team used isolation suits and room traffic was controlled. The surgical landmarks and incision was marked over the skin with a marking pen. [place] sterile drape was used to cover the operative site and isolate the perineum completely from the operative field. Administration of 2 g of prophylactic IV Ancef was confirmed with the anesthetic team. A preprocedure timeout was performed as per hospital protocol. A posterior approach was used to the hip joint. An electrocautery was used for hemostasis. The skin incision was made centering over the posterior border of the greater trochanter extending posteriorly in a curvilinear fashion across the buttock. The dissection was carried through subcutaneous tissue down to the fascia lorenza. The fascia lorenza and gluteus fascia were split and a Charnley retractor was placed. The trochanteric bursa was then removed with blunt dissection. The sciatic nerve was identified and kept out of the harm's way throughout the rest of the procedure. The hip was then internally rotated and the fat over the external rotators was cleared with a sponge. The short external rotator muscles were identified, a tag stitch was placed near their insertion, and they were divided close to the greater trochanter with electrocautery. This exposed the joint capsule which was opened with a T shaped incision and tag stitches were applied to both the leaves of the capsule. Upon entering the joint capsule, a fracture hematoma was noted as well as the displaced sub-capital femoral neck fracture. A corkscrew was then used to remove the femoral head from the acetabulum and passed to the scrubber system attendant to be sized on the back table. It measured 47 mm. All bony fragments were then removed from the acetabulum and surrounding soft tissue. The acetabulum was then inspected and found to be clear. The articular cartilage was noted to be well maintained without any significant arthritic changes. Our attention was then turned to the preparation of proximal femur where a cutting guide was used to toma the neck for the femoral neck cut. An oscillating saw was then used to finish the femoral cut. A box osteotome was then used to remove the bone from the proximal femur. A canal entry reamer was then used to open the femoral canal paying close attention to keep the reamer in a lateral position. Next we performed femoral broaching starting with a small broach, making efforts to lateralize the broach. The broaching was continued sequentially up to size 3 broach. We found this to be a very good fit without any rocking. We then used the calcar reamer to finish the femoral preparation. We then performed a trial reduction using the size 3 broach, +0 neck and 47 mm bipolar head. With these components the hip was somewhat unstable and the ligament was noted to be shorter compared to the other side and therefore we changed to +4 head. The hip was then again taken through range of motion and tested in adduction, internal and external rotation as well as with a shuck and posteriorly directed force on a flexed hip. It was noted that the hip was very stable with these trial components throughout the range of motion. We also noted that the limb lengths were equal with these components. Next, the trial components were removed and the femur and acetabulum were irrigated with pulse lavage and suctioned out. The size 3 Kt accolade 132 degree femoral stem was introduced and seated to the appropriate level. This gave us a very good fit without any play whatsoever. We then irrigated and dried the [place] taper and then placed the definitive 47 mm bipolar femoral head assembly on the stem and tapped into place. The hip was then reduced and again taken through range of motion and noted to be stable. The limb length was also well corrected. The hip joint was then soaked with dilute Betadine solution for 3 minutes, then suctioned out and irrigated with normal saline pulse lavage. At this point I also injected the capsule and soft tissue with the local anesthetic cocktail ( 0.5 percent bupivacaine 200 mg +10 mg of morphine +600 g of epinephrine +750 mg of cefuroxime +30 mg of ketorolac diluted in normal saline to make up a total volume of 120 mL). We confirmed good hemostasis and then proceeded to close the wound. The capsule was closed with interrupted #1 Vicryl sutures followed by reattachment of the external rotators to the greater trochanter with #1 Vicryl sutures. Next the fascia lorenza and the gluteus fascia were closed with #1 Vicryl sutures. The wound was then again irrigated copiously with pulse lavage and suctioned dry. Next the subcutaneous tissues were closed with 2-0 Vicryl sutures. The skin was closed with 4-0 Monocryl subcuticular sutures, Dermabond and Steri-Strips. Sterile dressings were applied consisting of Xeroform, 4 x 4 and ABDs as well as adhesive tape. No drains were placed. The patient was then transferred from the operating table onto the bed. The leg lengths were again checked in supine position and noted to be equal. An abduction pillow was placed between the legs. The patient was then reversed from the anesthetic and transported to the postoperative recovery area in a stable condition. She tolerated the procedure well and there were no immediate complications. Swab, needle and instrument counts were correct according to the scrub team at the end of the procedure. Portable X-rays of the RIGHT hip AP and lateral views were obtained in the recovery area and noted to be satisfactory. Postoperatively, continue standard precautions for a posterior hip approach. To mobilize weightbearing as tolerated with the help of a walker by physical therapist and to commence standard physical therapy and precautions for a posterior hip approach. EBL (ml): 150 Implant: Kt Accolade TMGF plus 132 degree neck angle V 40, hip stem- size 3 [place] [facility] universal head bipolar component- 47 mm outer diameter/28 mm inner diameter [employer] LFIT V40 femoral head, 28 mm outer diameter, +4 mm offset (Industry enrollment eligibility representative: Epifanio Rivera from [employer] [facility]) Complications: None Specimens: None
[2016-12-28 16:56] LABS: URINE BILIRUBIN - DIPSTICK NEGATIVE (NEG); URINE BLOOD 1+ (NEG)
[2016-12-29] VITALS (8 sets, daily range): BP systolic 136–151; BP diastolic 57–70
[2016-12-29 06:41] LABS: LYMPH # 1.3 K/mm3 (0.7-4.5); LYMPH % 18.9 % (10-50.0)
[2016-12-29 06:57] LABS: HEMOGLOBIN 8.9 g/dL (12.2-16.2)
--- NOTE | 2016-12-29 07:40 | ACUTE CARE PROGRESS NOTE (QUA) ---
Progress Notes Subjective Date 12/29/16 Time 0738 Note doing good Patient/family reports: feeling better Nursing reports: no complaints Objective Findings Last VS-Temp:99.1 B/P:146/70 Pulse:70 Resp:20 SaO2:93 OXYGEN Last weight lbs:165 oz:8 K.07 Method:Bed Scales Exam General appearance: alert Eyes: anicteric, PERRLA ENT: dry mucous membranes Neck: no JVD Cardiovascular: regular rate & rhythm Respiratory: no respiratory distress ABD: soft Genitourinary: no hematuria Extremities: moves all Musculoskeletal: equal muscle strength Skin: dry Neuro: alert, refrigeration supervisor II-XII nml as tested Reviewed: allergies, medications, vital signs, lab results, consult note Assessment/Plan Problem List 1. Open fracture of right wrist 2. Diabetes mellitus, insulin dependent (IDDM), controlled 3. Anemia 4. Renal insufficiency 5. Fracture of neck of right femur Status: Acute Onset Date: 12/27/16 Patient condition Improving Plan: continue current care This inpt stay is expected to cross 2 MNs from start of care Yes Comments: doing ok after surg at 0739
--- NOTE | 2016-12-29 07:40 | ACUTE CARE PROGRESS NOTE (QUA) ---
Progress Notes Subjective Date 12/29/16 Time 0738 Note doing good Patient/family reports: feeling better Nursing reports: no complaints Objective Findings Last VS-Temp:99.1 B/P:146/70 Pulse:70 Resp:20 SaO2:93 OXYGEN Last weight lbs:165 oz:8 K.07 Method:Bed Scales Exam General appearance: alert Eyes: anicteric, PERRLA ENT: dry mucous membranes Neck: no JVD Cardiovascular: regular rate & rhythm Respiratory: no respiratory distress ABD: soft Genitourinary: no hematuria Extremities: moves all Musculoskeletal: equal muscle strength Skin: dry Neuro: alert, patient registration representative II-XII nml as tested Reviewed: allergies, medications, vital signs, lab results, consult note Assessment/Plan Problem List 1. Open fracture of right wrist 2. Diabetes mellitus, insulin dependent (IDDM), controlled 3. Anemia 4. Renal insufficiency 5. Fracture of neck of right femur Status: Acute Onset Date: 12/27/16 Patient condition Improving Plan: continue current care This inpt stay is expected to cross 2 MNs from start of care Yes Comments: doing ok after surg at 0739
--- NOTE | 2016-12-29 13:22 | ACUTE CARE PROGRESS NOTE ---
Progress note Date: 12/29/16 Assessment: Subjective data: Patient is an 81-year-old female. She is status post- 1. Wound debridement and ORIF RIGHT distal radius fracture, postop day #5 and 2. RIGHT hip bipolar hemiarthroplasty, post op day# 1. She is sitting out on the chair and appears comfortable. She says she is doing well and her pain is well controlled. She is eating and drinking well. No history of any nausea, vomiting, chest pain or shortness of breath. She says she would like to be discharged back to her personal halfway. Objective: Vital Signs Result Date Time Pulse Ox 94 12/29 1230 B/P 142/65 12/29 1230 O2 Delivery ROOM AIR 12/29 1230 Temp 99.3 12/29 1230 Pulse 78 12/29 1230 Resp 18 12/29 1230 O2 Flow Rate 2 12/29 0402 Exam General appearance: alert, awake, no acute distress ENT: mucous membranes dry Cardiovascular: Irregular heart rate and murmur noted Respiratory: clear to auscultation, normal breath sounds ABD: normal bowel sounds, soft, no tenderness, no guarding, no organomegaly Genitourinary: catheter in place Skin: dry, intact On examination of her RIGHT lower extremity, the alignment is neutral and the limb lengths are equal. The dressings over the RIGHT hip are clean, dry and intact. Her thigh and calf are soft and nontender. Distal neurovascular status is intact. On examination of her RIGHT wrist, she has a well fitting short-arm splint. She has good range of finger movements. Distal sensation is intact and capillary refill is brisk. Laboratory Tests 12/29/16 1146: POC Glucose 223 H 12/29/16 0615: Sodium 137, Potassium 3.7, Chloride 104, Carbon Dioxide 25, BUN 17, Creatinine 0.8, Estimated Creat Clear 56, Estimated GFR (MDRD) 69, Glucose 222 H, Calcium 7.8 L, WBC 7.1, RBC 2.98 L, Hgb 8.9 L, Hct 26.9 L, MCV 90.3, RDW 15.2, Plt Count 157, MPV 7.7, Gran % 70.6, Gran # 5.0, Lymphocytes % 18.9, Monocytes % 6.4 , Eosinophils % 3.5, Basophils % 0.5, Lymphocytes # 1.3, Monocytes # 0.5, Eosinophils # 0.3, Basophils # 0.0, PUBS MCHC 32.7, MCH 29.5 12/28/16 2017: POC Glucose 227 H 12/28/16 1649: POC Glucose 283 H 12/28/16 1625: Urine Color YELLOW, Urine Appearance CLEAR, Urine pH 6.0, Ur Specific [place] 1.025, Urine Protein 2+ H, Urine Ketones NEGATIVE, Urine Blood 1+ H, Urine Nitrate NEGATIVE, Urine Bilirubin NEGATIVE, Urine Urobilinogen 1.0, Ur Leukocyte Esterase NEGATIVE, Urine RBC OCC, Urine WBC 3-5, Ur Squamous Epith Cells 5-10, Urine Bacteria 1+, Urine Mucus OCC, Urine Glucose 2+ H Impression: 1. Open fracture of right wrist Qualifiers Encounter type: initial encounter Qualified Code: S62.101B - Fracture of unspecified carpal bone, right wrist, initial encounter for open fracture 2. Diabetes mellitus, insulin dependent (IDDM), controlled 3. Anemia 4. Renal insufficiency 5. Fracture of neck of right femur Status: Acute Onset Date: 12/27/16 Qualifiers Encounter type: initial encounter Fracture type: closed Qualified Code: S72.001A - Fracture of unspecified part of neck of right femur, initial encounter for closed fracture Plan: I reviewed her vital signs, lab results, nursing notes, medical progress notes, medication and also discussed with the nursing staff regarding her progress. I also discussed about the findings and procedure performed. Physical therapy to continue mobilization weightbearing as tolerated on the RIGHT lower extremity. She may need to use an elbow support on the RIGHT side as she should not weight- bear on the RIGHT wrist. Use abduction pillow when in bed and continue using this for 6 weeks postop. Continue standard precautions for posterior approach to the hip joint. Given that she lives by herself in a halfway, it would be better for her to go to a prison facility for rehab. Care management to look into discharge planning. Medical management as per Dr. Whelan's team.
[2016-12-30 04:30] VITALS: BP 146/44
[2016-12-30 08:11] VITALS: BP 144/49
[2016-12-30 10:01] VITALS: BP 144/49
[2016-12-30 11:55] VITALS: BP 130/61
--- NOTE | 2016-12-30 13:22 | ACUTE CARE PROGRESS NOTE (QUA) ---
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 Open fracture of right wrist 2. Diabetes mellitus, insulin dependent (IDDM), controlled 3. Anemia 4. Renal insufficiency 5. Fracture of neck of right femur Status: Acute Onset Date: 12/27/16 Patient condition Improving Plan: initiate discharge plan This inpt stay is expected to cross 2 MNs from start of care Yes Comments: will send to [facility] today Antibiotic Stewardship (2) Current Culture Results Microbiology 12/24 817 BLOOD: Anaerobic Blood Culture - COMP 12/24 817 BLOOD: Aerobic Blood Culture - COMP Infxn that will respond? Yes Right drug,dose,and route? Yes More targeted antbx? Yes at 1320
--- NOTE | 2016-12-30 13:22 | ACUTE CARE PROGRESS NOTE (QUA) ---
Progress Notes Subjective Date 12/30/16 Time 1319 Note doing better Patient/family reports: feeling better Nursing reports: no complaints Objective Findings Last VS-Temp:98.8 B/P:130/61 Pulse:74 Resp:20 SaO2:93 ROOM AIR Last weight lbs:165 oz:8 K.07 Method:Bed Scales Exam General appearance: alert Eyes: PERRLA ENT: dry mucous membranes Neck: no JVD Cardiovascular: regular rate & rhythm Respiratory: no respiratory distress ABD: soft Genitourinary: circumcised Extremities: positive splint rt upper ext Musculoskeletal: motor intact Skin: dry Neuro: alert, advance agent II-XII nml as tested Reviewed: allergies, medications, vital signs, lab results, consult note Assessment/Plan Problem List 1. Open fracture of right wrist 2. Diabetes mellitus, insulin dependent (IDDM), controlled 3. Anemia 4. Renal insufficiency 5. Fracture of neck of right femur Status: Acute Onset Date: 12/27/16 Patient condition Improving Plan: initiate discharge plan This inpt stay is expected to cross 2 MNs from start of care Yes Comments: will send to [facility] today Antibiotic Stewardship (2) Current Culture Results Microbiology 12/24 817 BLOOD: Anaerobic Blood Culture - COMP 12/24 817 BLOOD: Aerobic Blood Culture - COMP Infxn that will respond? Yes Right drug,dose,and route? Yes More targeted antbx? Yes at 1322
[2016-12-30 14:03] VITALS: BP 130/61
--- NOTE | 2017-01-03 16:25 | ACUTE CARE PROGRESS NOTE ---
Progress note Date: 12/30/16 Assessment: Subjective data: Patient is an 81-year-old female. She is status post- Wound debridement and ORIF RIGHT distal radius fracture, postop day #6 and RIGHT hip bipolar hemiarthroplasty, post op day #2. She is lying down on the bed and appears comfortable. She says she is doing well and her pain is well controlled. She is eating and drinking well. No history of any nausea, vomiting, chest pain or shortness of breath. She says she would like to be discharged today. Objective: Exam General appearance: alert, awake, no acute distress ENT: mucous membranes dry Cardiovascular: Irregular heart rate and murmur noted Respiratory: clear to auscultation, normal breath sounds ABD: normal bowel sounds, soft, no tenderness, no guarding, no organomegaly Genitourinary: catheter in place Skin: dry, intact On examination of her RIGHT lower extremity, the alignment is neutral and the limb lengths are equal. The dressings over the RIGHT hip are clean, dry and intact. Her thigh and calf are soft and nontender. Distal neurovascular status is intact. On examination of her RIGHT wrist, she has a well fitting short-arm splint. She has good range of finger movements. Distal sensation is intact and capillary refill is brisk. We changed the dressings over both her RIGHT wrist and RIGHT hip. The RIGHT hip wounds are healing well and there is no evidence of any infection or other complications. The suture ends were cut and Steri-Strips were applied. The RIGHT hip incision looks clean and dry and healthy. There is no erythema or induration. The dressings were changed. Impression: 1. Open fracture of right wrist Qualifiers Encounter type: initial encounter Qualified Code: S62.101B - Fracture of unspecified carpal bone, right wrist, initial encounter for open fracture 2. Diabetes mellitus, insulin dependent (IDDM), controlled 3. Anemia 4. Renal insufficiency 5. Fracture of neck of right femur Status: Acute Onset Date: 12/27/16 Qualifiers Encounter type: initial encounter Fracture type: closed Qualified Code: S72.001A - Fracture of unspecified part of neck of right femur, initial encounter for closed fracture Plan: I reviewed her vital signs, lab results, nursing notes, medical progress notes, medication and also discussed with the nursing staff regarding her progress. Physical therapy to continue mobilization weightbearing as tolerated with an elbow walker. Keep the RIGHT wrist elevated and mobilize the fingers. Advised her not to weight-bear on the RIGHT hand. Use abduction pillow when in bed and continue using this for 6 weeks postop. Continue standard precautions for posterior approach to the hip joint. Postoperative dressings were changed today and the wounds looks healthy. The suture ends were cut from the wrist incision and Steri-Strips were applied. The wrist wounds are healing well and herof any infection or other complications. The hip incision is looking healthy. From an orthopedic standpoint patient can be discharged back to a SNFas appropriate if medically stable. Recommend DVT prophylaxis for 5 weeks postop- the appropriate agents include Lovenox, Aspirin 325 mg, Xarelto (Rivaroxaban), Eliquis (apixaban ) and Coumadin. Follow-up in my office in 2 weeks time with check x-ray. Please feel free to call our office at [phone] for any orthopaedic questions. Medical management as per Dr. Whelan's team.
== END 2016-12-30 14:46 | DRG 956 ==
LOC: ER 07:29 → 2ND 08:34 → ER 08:34 → 2ND 08:38
PROVIDERS: Emergency Medicine; Family Medicine; General Practice; Orthopaedic Surgery
PROC: 0PSH04Z Reposition Right Radius with Internal Fixation Device, Open Approach (ICD-10-PCS; principal; 2016-12-24 11:30)
PROC: 0SRR03Z Replacement of Right Hip Joint, Femoral Surface with Ceramic Synthetic Substitute, Open Approach (ICD-10-PCS; 2016-12-28)
DX: S52.531B Colles' fracture of right radius, initial encounter for open fracture type I or II (principal); S72.011A Unspecified intracapsular fracture of right femur, initial encounter for closed fracture; F03.90 Unspecified dementia, unspecified severity, without behavioral disturbance, psychotic disturbance, mood disturbance, and anxiety; S52.601B Unspecified fracture of lower end of right ulna, initial encounter for open fracture type I or II; W18.30XA Fall on same level, unspecified, initial encounter; E11.9 Type 2 diabetes mellitus without complications; Z79.4 Long term (current) use of insulin; I10 Essential (primary) hypertension; I25.10 Atherosclerotic heart disease of native coronary artery without angina pectoris; Z95.5 Presence of coronary angioplasty implant and graft; Z72.0 Tobacco use
CPT/HCPCS: C1713; C1769; C1776; G0238; P9016